=== PATIENT | female | born 1965 | race Caucasian/White ===

== ENCOUNTER → 2018-03-12 14:42 | Outpatient (CLI) | payer OTHER, MEDICAID, SELFPAY ==
--- NOTE | 2018-03-12 14:48 | DI.MG.S_ITS ---
Patient Name: BOBBI MARTINI date: 1965 Sex: F Attending Physician: Elba Indications: Date: 03/12/2018 14:48 At the request of: KAREN FRANCO Procedure: MM screening mammo BI BILATERAL DIGITAL SCREENING MAMMOGRAM 3D/2D WITH CAD: 03/12/2018 CLINICAL: Routine screening. Family history of breast cancer. Comparison is made to exams dated: 03/06/2017 mammogram, 01/26/2016 mammogram, and 01/23/2015 mammogram - [facility]. There are scattered fibroglandular elements in both breasts. Current study was also evaluated with a Computer Aided Detection (CAD) system. No significant masses, calcifications, or other findings are seen in either breast. IMPRESSION: NEGATIVE There is no mammographic evidence of malignancy. A 1 year screening mammogram is recommended. This exam was interpreted at Station ID: [id number]. NOTE: For mammograms, a report in lay terms will be sent to the patient. Approximately 15% of breast malignancies will not be visualized mammographically. In the management of a palpable breast mass, a negative mammogram must not discourage biopsy of a clinically suspicious lesion. Electronically Signed By: Abdias waldrop/asim:03/12/2018 20:29:58 letter sent: Normal Exam ACR BI-RADS Category 1: Negative [id number]
== END ==
PROVIDERS: Family Provider Family Medicine; PCP Family Medicine; Visit Provider Family Medicine
DX: Z12.31 Encounter for screening mammogram for malignant neoplasm of breast (principal); Z80.3 Family history of malignant neoplasm of breast
CPT/HCPCS: 77063; 77067

== ENCOUNTER → 2018-04-09 09:15 | Outpatient (CLI) | payer OTHER, MEDICAID, SELFPAY ==
--- NOTE | 2018-04-09 09:17 | DI.RAD.S_ITS ---
PROCEDURE: XR CHEST 2V INDICATIONS: Chest pain, unspecified TECHNIQUE: 2 views of the chest were acquired. COMPARISON: [facility], CHEST 2 VIEW, 10/13/2006, 9:03. [facility], CHEST 1 VIEW, 01/31/2017, 23:37. FINDINGS: Surgical changes and devices: None. Lungs and pleura: No pleural effusions or pneumothorax. Lungs are clear. Mediastinum: Mediastinal contours are normal. Heart size is normal. Bones and chest wall: No suspicious bony abnormalities. Soft tissues appear unremarkable. IMPRESSION: No acute cardiopulmonary abnormality. Dictated by: Jose F Miller M.D. on 04/09/2018 at 9:41 Approved by: Jose F Miller M.D. on 04/09/2018 at 9:44
== END ==
PROVIDERS: Family Provider Family Medicine; PCP Family Medicine; Visit Provider Registered Nurse
DX: R07.9 Chest pain, unspecified (principal)
CPT/HCPCS: 71046

== ENCOUNTER → 2018-09-03 08:59 | Outpatient (CLI) | payer OTHER, MEDICAID, SELFPAY | PROVIDERS: Family Provider Family Medicine; PCP Family Medicine; Visit Provider Family Medicine | DX: E03.9 Hypothyroidism, unspecified (principal) | CPT/HCPCS: 36415; 84443 ==

== ENCOUNTER → 2018-11-28 16:06 | Outpatient (CLI) | payer OTHER, MEDICAID, SELFPAY ==
[2018-11-28 18:03] LABS: Thyroid Stimulating Hormone 3.26 uIU/mL (0.47-4.68)
== END ==
PROVIDERS: Family Provider Family Medicine; PCP Family Medicine; Visit Provider Family Medicine
DX: E03.9 Hypothyroidism, unspecified (principal)
CPT/HCPCS: 36415; 84443

== ENCOUNTER → 2019-02-25 14:23 | Outpatient (CLI) | payer OTHER, MEDICAID, SELFPAY ==
[2019-02-25 15:51] LABS: Thyroid Stimulating Hormone 2.57 uIU/mL (0.47-4.68)
== END ==
PROVIDERS: PCP Family Medicine; Visit Provider Family Medicine
DX: E03.9 Hypothyroidism, unspecified (principal)
CPT/HCPCS: 36415; 84443

== ENCOUNTER → 2019-03-18 07:43 | Outpatient (CLI) | payer OTHER, MEDICAID, SELFPAY ==
--- NOTE | 2019-03-18 | DI.MG.S_ITS ---
BILATERAL DIGITAL SCREENING MAMMOGRAM 3D/2D WITH CAD: 03/18/2019 CLINICAL: Routine screening. Family history of breast cancer. Comparison is made to exams dated: 03/12/2018 mammogram, 03/06/2017 mammogram, and 01/26/2016 mammogram - [facility]. There are scattered fibroglandular elements in both breasts. Current study was also evaluated with a Computer Aided Detection (CAD) system. No significant masses, calcifications, or other findings are seen in either breast. There has been no significant interval change. IMPRESSION: NEGATIVE There is no mammographic evidence of malignancy. A 1 year screening mammogram is recommended. This exam was interpreted at Station ID: [id number]. NOTE: For mammograms, a report in lay terms will be sent to the patient. Approximately 15% of breast malignancies will not be visualized mammographically. In the management of a palpable breast mass, a negative mammogram must not discourage biopsy of a clinically suspicious lesion. Electronically Signed By: Alicia souza/asim:03/18/2019 08:45:51 letter sent: Normal Exam ACR BI-RADS Category 1: Negative [id number]
== END ==
PROVIDERS: PCP Family Medicine; Visit Provider Family Medicine
DX: Z12.31 Encounter for screening mammogram for malignant neoplasm of breast (principal); Z80.3 Family history of malignant neoplasm of breast
CPT/HCPCS: 77063; 77067

== ENCOUNTER 2019-04-07 02:52 | Emergency (ER) | payer OTHER, MEDICAID, SELFPAY ==
--- NOTE | 2019-04-07 02:53 | ED_ITS ---
HPI - General Adult General Chief complaint: Chest Pain Stated complaint: CHEST PAINS X1 HOUR Time Seen by Provider: 04/07/19 02:53 Source: patient Mode of arrival: ambulatory Limitations: no limitations History of Present Illness HPI narrative: 54-year-old female here for evaluation of chest pain. She states that the symptoms awoke her from sleep. It occurred approximately 1 hour prior to arrival here in the emergency department however did improve somewhat when she arrived here. Was associated with a small amount of shortness of breath. She states that it was worse when she laid down and better when she was up walking around. Has had some this similar to this in the past but has never been evaluated for it. Took some Tylenol before she arrived without any improvement. Not worse with palpation. Related Data Home Medications Medication Instructions Recorded Confirmed ibuprofen 400 mg PO Q4HP #0 05/15/12 03/11/19 Previous Rx's Medication Instructions Recorded albuterol sulfate HFA 90 1 puff INHALATION BID #6.7 gram 11/06/18 mcg/actuation aerosol inhaler fluticasone propionate 50 2 spray NASAL DAILY #9.9 gram 12/10/18 mcg/actuation nasal spray,suspension levothyroxine 175 mcg tablet 175 mcg PO QAM #30 tab 02/26/19 buspirone 5 mg tablet 7.5 mg PO BID #90 tab 03/12/19 Allergies Allergy/AdvReac Type Severity Reaction Status Date / Time No Known Drug Allergies Allergy Verified 03/11/19 11:40 Review of Systems Constitutional Denies fever(s) and Denies headache(s) ENT Ears, Nose, Mouth, and Throat: Denies headache(s) Cardiovascular Reports chest pain and Reports dyspnea Respiratory Denies cough, Reports dyspnea and Denies wheezing Gastrointestinal Gastrointestinal: Denies abdominal pain, Denies change in stool character, Denies nausea and Denies vomiting Genitourinary Denies dysuria Musculoskeletal Denies myalgias and Denies arthralgias Integumentary/Breasts Denies new lesions and Denies rash Neurologic Denies behavioral changes and Denies headache(s) Psychiatric Denies behavioral changes Hematologic/Lymphatic Denies easy bleeding and Denies easy bruising Allergic/Immunologic Denies wheezing [facility] Medical History History of irregular menstrual cycles (Chronic ~2014) Social History marital status: Smoking Status: Current every day smoker alcohol intake: current (1-3 A WEEK ) substance use type: does not use Exam Initial Vital Signs Initial Vital Signs: Vital Signs Temperature 98.7 F 04/07/19 02:55 Pulse Rate 74 04/07/19 02:55 Respiratory Rate 18 04/07/19 02:55 Blood Pressure 143/87 H 04/07/19 02:55 Pulse Oximetry 98 04/07/19 02:55 Const General: cooperative, healthy appearing, comfortable, well developed, well groomed and No acute distress Orientation: alert, awake and oriented x3 HENMT Head: normal to inspection and normocephalic Eyes Periorbital: periorbital findings normal Resp Effort & Inspection: normal respiratory effort Auscultation: clear to auscultation bilaterally Cardio Rate: regular rate Rhythm: regular rhythm GI Inspection: non-distended Palpation: soft, No firm and No tender Skin Lesions: no lesions Rashes: no rashes Neuro General: alert and awake Cognition: normal cognition Speech: speech normal Gait: normal gait Extrem General: normal to inspection, capillary refill normal and No edema Psych Appearance: grossly normal and well kempt Scores HEART Score Heart Score history: Slightly Suspicious Heart Score EKG: Normal Heart Score Age: 45-64 years old Heart Score risk factors: 1-2 risk factors Heart Score troponin: < or = to normal limit Heart Score Total: 2 Course Orders Ordered: ED Orders 04/07/19 02:54 XR chest 1V Stat EKG-12 Lead Stat 04/07/19 03:06 B Type Natriuretic Peptide Stat Complete Blood Count AUTO DIFF Stat Comprehensive Metabolic Panel Stat Lipase Stat Partial Thromboplastin Time Stat Prothrombin Time INR Stat Troponin I Stat 04/07/19 04:57 Troponin I Stat Discontinued Medications Aspirin (Aspirin Chew) 324 mg PO NOW ONE Stop: 04/07/19 03:12 Last Admin: 04/07/19 03:16 Dose: 324 mg Vital Signs - 8 hr 04/07/19 02:55 04/07/19 03:05 04/07/19 03:24 Temperature 98.7 F 98.7 F 98.4 F Pulse Rate 74 74 74 Respiratory Rate 18 18 16 Blood Pressure 143/87 H 143/87 H Blood Pressure [Right Arm] 122/67 Pulse Oximetry 98 98 100 04/07/19 04:30 Temperature Pulse Rate 65 Respiratory Rate 16 Blood Pressure Blood Pressure [Right Arm] 131/88 Pulse Oximetry 97 Medical Decision Making Lab Data Lab results reviewed: Yes I reviewed the patient's lab results. Result diagrams: 04/07/19 03:06 04/07/19 03:06 Lab Results 04/07/19 04/07/19 04/07/19 Range/Units 03:06 03:06 03:06 WBC 10.3 (4.5-11.0) X10^3/uL RBC 4.74 (4.0-5.2) X10^6/uL Hgb 15.0 (12.0-16.0) g/dL Hct 43.6 (36-46) % MCV 91.9 (80-100) fL MCH 31.6 (26-34) PG MCHC 34.4 (30-36) % RDW 13.6 (11.6-14.8) % Plt Count 280 (150-400) X10^3/uL Neut % (Auto) 56.0 (50-75) % Lymph % (Auto) 31.4 (25-40) % [place] % (Auto) 9.1 (3-14) % Eos % (Auto) 2.5 (2-4) % Baso % (Auto) 1.0 (0-2) % Neut # (Auto) 5800 (1886-5344) /uL Lymph # (Auto) 3200 (5324-8961) /uL [place] # (Auto) 900 (0-900) /uL Eos # (Auto) 300 (0-450) /uL Baso # (Auto) 100 (0-100) /uL PT 10.5 (10.1-12.7) SECONDS INR 0.9 (0.9-1.3) APTT 33 (26.4-36.2) SECONDS Sodium 142 (137-145) mmol/L Potassium 3.7 (3.4-5.1) mmol/L Chloride 108 H (98-107) mmol/L Carbon Dioxide 26 (22-32) mmol/L BUN 15 (7-17) mg/dL Creatinine 0.60 (0.52-1.04) mg/dL Estimated GFR > 60.0 (>60) mL/min BUN/Creatinine Ratio 25.0 H (6-22) Glucose 97 (70-100) mg/dL Calcium 9.3 (8.4-10.2) mg/dL Total Bilirubin 0.8 (0.2-1.3) mg/dL AST 20 (14-36) IU/L ALT 12 (9-52) IU/L Alkaline Phosphatase 45 (38-126) U/L Troponin I (0.01-0.034) ng/mL B-Natriuretic Peptide (<100) Total Protein 6.7 (6.3-8.2) g/dL Albumin 4.0 (3.5-5.0) g/dL Globulin 2.7 (1.7-4.1) g/dL Albumin/Globulin Ratio 1.5 (1.0-2.8) Lipase 202 (23-300) U/L 04/07/19 04/07/19 04/07/19 Range/Units 03:06 03:06 04:57 WBC (4.5-11.0) X10^3/uL RBC (4.0-5.2) X10^6/uL Hgb (12.0-16.0) g/dL Hct (36-46) % MCV (80-100) fL MCH (26-34) PG MCHC (30-36) % RDW (11.6-14.8) % Plt Count (150-400) X10^3/uL Neut % (Auto) (50-75) % Lymph % (Auto) (25-40) % [place] % (Auto) (3-14) % Eos % (Auto) (2-4) % Baso % (Auto) (0-2) % Neut # (Auto) (7843-8664) /uL Lymph # (Auto) (7814-7938) /uL [place] # (Auto) (0-900) /uL Eos # (Auto) (0-450) /uL Baso # (Auto) (0-100) /uL PT (10.1-12.7) SECONDS INR (0.9-1.3) APTT (26.4-36.2) SECONDS Sodium (137-145) mmol/L Potassium (3.4-5.1) mmol/L Chloride (98-107) mmol/L Carbon Dioxide (22-32) mmol/L BUN (7-17) mg/dL Creatinine (0.52-1.04) mg/dL Estimated GFR (>60) mL/min BUN/Creatinine Ratio (6-22) Glucose (70-100) mg/dL Calcium (8.4-10.2) mg/dL Total Bilirubin (0.2-1.3) mg/dL AST (14-36) IU/L ALT (9-52) IU/L Alkaline Phosphatase (38-126) U/L Troponin I < 0.012 < 0.012 (0.01-0.034) ng/mL B-Natriuretic Peptide < 100 (<100) Total Protein (6.3-8.2) g/dL Albumin (3.5-5.0) g/dL Globulin (1.7-4.1) g/dL Albumin/Globulin Ratio (1.0-2.8) Lipase (23-300) U/L Imaging Data Chest x-ray: Attestation: I personally reviewed and interpreted this imaging study as follows: My impression: No acute pathology, no pneumothorax, no pneumonia ECG Data Attestation: I personally reviewed and interpreted this ECG as follows: Prior ECG tracings: not available for review Interpretation: Sinus rhythm Ventricular rate is 72 Normal axis Normal QRS Normal QTC No ST T wave changes MDM Narrative Medical decision making narrative: Heart score 2. Has been asymptomatic since being here in the emergency department. Troponin is negative x2. Had a discussion with the patient regarding her symptoms. We did discuss the impor tance of talking with her primary doctor about stress testing. Given her heart score in her physical exam and her EKG do not feel that she needs admitted to the hospital to get this done emergently. She was given return precautions and follow-up instructions. She expressed understanding and agreement with plan. Discharge Plan Departure Patient Disposition: Home Clinical Impression: Chest pain Qualifiers: Chest pain type: unspecified Qualified Code(s): R07.9 - Chest pain, unspecified Instructions: DI for Chest Pain Activity Restrictions/Additional Instructions: I do recommend that tomorrow you contact your primary doctor's office to discuss a referral to have a stress test. Return to the emergency department for any new or worsening symptoms. Continue all of your medications as directed Prescriptions: No Action buspirone 5 mg tablet 7.5 mg PO BID Qty: 90 RF: 3 ibuprofen 200 MG tablet 400 mg PO Q4HP Qty: 0 RF: 0 levothyroxine 175 mcg tablet 175 mcg PO QAM Qty: 30 RF: 5 albuterol sulfate 90 mcg/actuation HFA aerosol inhaler 1 puff INHALATION BID Qty: 6.7 RF: 1 fluticasone propionate [Flonase Allergy Relief] 50 mcg/actuation spray,suspension 2 spray NASAL DAILY Qty: 9.9 RF: 0 Referrals: Thee Arreola MD [Primary Care Provider] -
--- NOTE | 2019-04-07 02:54 | DI.RAD.S_ITS ---
PROCEDURE: XR CHEST 1V INDICATIONS: Chest pain TECHNIQUE: One view of the chest was acquired. COMPARISON: [facility], CR, XR CHEST 2V, 04/09/2018, 9:02. FINDINGS: Surgical changes and devices: None. Lungs and pleura: Lungs are clear. No pleural effusions or pneumothorax. Mediastinum: Mediastinal contours appear normal. Heart size is normal. Bones and chest wall: No suspicious bony lesions. Overlying soft tissues appear unremarkable. IMPRESSION: Negative chest. No acute cardiopulmonary process is suspected. Note: The preliminary ED findings and the final radiology report are concordant. Dictated by: Amrit Castaneda M.D. on 04/07/2019 at 8:39 Approved by: Amrit Castaneda M.D. on 04/07/2019 at 8:40
[2019-04-07 02:55] VITALS: BP 143/87; PULSE 74; RESP 18; TEMP 37.1; O2SAT 98; BMI 20.7
[2019-04-07 03:05] VITALS: BP 143/87; PULSE 74; RESP 18; TEMP 37.1; O2SAT 98; BMI 20.7
[2019-04-07 03:12] LABS: Add Manual Diff / Slide Review NO; Basophils Absolute Auto 100 /uL (0-100); Eosinophils Absolute Auto 300 /uL (0-450); Eosinophils Percent Auto 2.5 % (2-4); Hematocrit 43.6 % (36-46); Lymphocytes Absolute Auto 3200 /uL (1100-4500); Lymphocytes Percent Auto 31.4 % (25-40); Mean Corpuscular HGB Conc 34.4 % (30-36); Mean Corpuscular Hemoglobin 31.6 PG (26-34); Mean Corpuscular Volume 91.9 fL (80-100); Monocytes Absolute Auto 900 /uL (0-900); Monocytes Percent Auto 9.1 % (3-14); Neutrophils Absolute Auto 5800 /uL (1500-7000); Platelet Count 280 X10^3/uL (150-400); Red Blood Cell Count 4.74 X10^6/uL (4.0-5.2); Red Cell Distribution Width 13.6 % (11.6-14.8); White Blood Cell Count 10.3 X10^3/uL (4.5-11.0)
[2019-04-07] MEDS: ASPIRIN 81 MG TAB 324 MG PO (03:16)
[2019-04-07 03:20] LABS: INR 0.9 (0.9-1.3); Prothrombin Time 10.5 SECONDS (10.1-12.7)
[2019-04-07 03:22] LABS: PTT Partial Thromboplastin Tim 33 SECONDS (26.4-36.2)
[2019-04-07 03:24] VITALS: BP 122/67; PULSE 74; RESP 16; TEMP 36.9; O2SAT 100
[2019-04-07 03:24] LABS: Alanine Aminotransferase 12 IU/L (9-52); Albumin Globulin Ratio 1.5 (1.0-2.8); Alkaline Phosphatase 45 U/L (38-126); Aspartate Aminotransferase 20 IU/L (14-36); Bilirubin Total 0.8 mg/dL (0.2-1.3); Blood Urea Nitrogen 15 mg/dL (7-17); Calcium 9.3 mg/dL (8.4-10.2); Carbon Dioxide 26 mmol/L (22-32); Chloride 108 mmol/L (98-107); Estimated Glomerular Filt Rate > 60.0 mL/min (>60); Globulin 2.7 g/dL (1.7-4.1); Glucose 97 mg/dL (70-100); HEMOLYSIS < 15 (0-50); Lipase 202 U/L (23-300); Potassium 3.7 mmol/L (3.4-5.1); Sodium 142 mmol/L (137-145); Total Protein 6.7 g/dL (6.3-8.2)
[2019-04-07 03:36] LABS: Troponin I < 0.012 ng/mL (0.01-0.034)
[2019-04-07 03:38] LABS: B Type Natriuretic Peptide < 100 (<100)
[2019-04-07 04:30] VITALS: BP 131/88; PULSE 65; RESP 16; O2SAT 97
[2019-04-07 05:26] LABS: Troponin I < 0.012 ng/mL (0.01-0.034)
[2019-04-07 06:12] VITALS: BP 127/79; PULSE 76; RESP 16; O2SAT 98
== END 2019-04-07 06:13 | disposition home or self-care (01) ==
PROVIDERS: Emergency Provider Emergency Medicine; PCP Family Medicine
DX: R07.9 Chest pain, unspecified (principal)
CPT/HCPCS: 36591; 71045; 80053; 83690; 83880; 84484; 85025; 85610; 85730; 93005; 93010; 99283; 99285

== ENCOUNTER 2019-07-04 21:29 | Emergency (ER) | payer OTHER, MEDICAID, SELFPAY ==
[2019-07-04 21:35] VITALS: BP 122/72; PULSE 69; RESP 23; TEMP 37.1; O2SAT 97; BMI 19.9
--- NOTE | 2019-07-04 21:38 | DI.RAD.S_ITS ---
PROCEDURE: XR CHEST 1V INDICATIONS: chest pain, cough TECHNIQUE: One view of the chest was acquired. COMPARISON: [facility], CR, XR CHEST 1V, 04/07/2019, 3:08. FINDINGS: Surgical changes and devices: None. Lungs and pleura: Patchy opacity noted in left lung base concerning for aspiration versus pneumonia. No pleural effusions or pneumothorax. Mediastinum: Mediastinal contours appear normal. Heart size is normal. Bones and chest wall: No suspicious bony lesions. Overlying soft tissues appear unremarkable. IMPRESSION: Left basilar aspiration versus pneumonia. Dictated by: Nelly Suero MD, PhD on 07/04/2019 at 22:01 Approved by: Nelly Suero MD, PhD on 07/04/2019 at 22:02
--- NOTE | 2019-07-04 21:38 | ED.CHESTPAIN ---
HPI - Chest Pain General Chief Complaint: Chest Pain Stated Complaint: CHEST PAINS Time Seen by Provider: 07/04/19 21:31 Source: patient Mode of arrival: Ambulatory Limitations: no limitations History of Present Illness HPI narrative: 53-year-old female former smoker presents by herself with a chief complaint of anterior chest pain for the past few hours. She has been treated for the past 5 days with antibiotics for a presumed pneumonia by her primary care provider. Her pain is worse when she lays flat and seems to worsen with cough. She denies any production to her sputum. She states her pain is sharp and stabbing. She denies any radiation of the pain. She denies associated symptoms such as dizziness, weakness or lightheadedness. She has had no nausea or vomiting. She denies any diaphoresis. She denies any blood in her sputum. She has had no recent long distance travel. MD complaint: chest pain Onset (ago): hour(s) Duration: improved Onset: other Pain location: substernal Severity: moderate Quality: sharp Pain radiation: none Relieving factors: nothing Exacerbating factors: inspiration and palpation Context: recent illness Related Data On Oral Contraceptives: No Previous Rx's Medication Instructions Recorded albuterol sulfate 90 mcg/actuation 1 puff INHALATION BID #6.7 gram 11/06/18 aerosol inhaler fluticasone propionate 50 2 spray NASAL DAILY #9.9 gram 12/10/18 mcg/actuation nasal spray,suspension levothyroxine 175 mcg tablet 175 mcg PO QAM #30 tab 02/26/19 sertraline 25 mg tablet 25 mg PO DAILY #30 tab 04/30/19 doxycycline hyclate 100 mg capsule 100 mg PO BID #20 cap 07/01/19 Allergies Allergy/AdvReac Type Severity Reaction Status Date / Time No Known Drug Allergies Allergy Verified 07/01/19 08:51 Review of Systems Constitutional Constitutional: Denies chills, Denies fatigue, Denies fever(s), Denies frequent falls, Denies lethargy and Denies weakness Eyes Eyes: Denies change in vision, Denies eye discharge, Denies irritation and Denies loss of vision ENT Ears, Nose, Mouth, and Throat: Denies change in voice, Denies dizziness, Denies neck pain, Denies sore throat and Denies throat swelling Cardiovascular Cardiovascular: Reports chest pain, Denies irregular heart rhythm, Denies lightheadedness, Denies palpitations, Denies dyspnea, Denies dyspnea on exertion and Denies orthopnea Respiratory Respiratory: Reports cough, Denies dyspnea, Denies dyspnea on exertion and Denies wheezing Gastrointestinal Gastrointestinal: Denies abdominal pain, Denies change in bowel habits, Denies diarrhea, Denies nausea and Denies vomiting Genitourinary Genitourinary: Denies hematuria, Denies flank pain, Denies urinary incontinence and Denies urinary urgency Musculoskeletal Musculoskeletal: Denies back pain, Denies muscle weakness, Denies neck pain, Denies numbness and Denies tingling Integumentary/Breasts Skin/Breast: Denies pruritus, Denies erythema, Denies rash and Denies wounds Neurologic Neurologic: Denies behavioral changes, Denies confusion, Denies dizziness, Denies frequent falls, Denies loss of vision, Denies numbness, Denies tingling and Denies weakness Psychiatric Psychiatric: Denies anxiety, Denies behavioral changes, Denies confusion, Denies depression, Denies homicidal ideation and Denies suicidal ideation Endocrine Endocrine: Denies fatigue, Denies flushing and Denies palpitations Hematologic/Lymphatic Hematologic/Lymphatic: Denies easy bruising Allergic/Immunologic Allergic/Immunologic: Denies urticaria, Denies throat swelling and Denies wheezing Patient History Medical History Anxiety (Acute) Anxiety (Acute) Atypical chest pain (Inactive) Chest pain (Inactive) Cystocele with uterine descensus (02/06/15) History of irregular menstrual cycles (Chronic ~2013) Inguinal hernia (Acute) Polyp of cervix (02/06/15) Surgical History Status post tubal ligation (12/24/03) Family History Mother Cancer Sister Age: 53 Breast cancer Social History marital status: Smoking Status: Current every day smoker alcohol intake: current (1-3 A WEEK ) substance use type: does not use alcohol intake frequency: 0-2 drinks per day Substance Use Type: does not use Exam Narrative Exam Narrative: GENERAL: [53] year old patient appears stated age. Well-nourished, well-developed patient, in mild distress. HEAD: Atraumatic. Normocephalic. EYES: Pupils equal round and reactive. Extraocular motions intact. No scleral icterus. No injection or drainage. ENT: Nose without bleeding, purulent drainage. Throat without erythema, tonsillar hypertrophy or exudate. Airway patent. NECK: Trachea midline. Non tender CARDIOVASCULAR: Regular rate and rhythm without murmurs, gallops, or rubs. RESPIRATORY: Clear to auscultation. Breath sounds equal bilaterally. No wheezes, rales, or rhonchi. GASTROINTESTINAL: Abdomen soft, tender epigastrum, nondistended. EXTREMITIES: No edema or joint tenderness. BACK: Nontender without deformity or crepitance. No flank tenderness. NEURO: AOx3. SKIN: No rash or erythema of visible areas Initial Vital Signs Initial Vital Signs: Vital Signs Temperature 98.7 F 07/04/19 21:35 Pulse Rate 69 07/04/19 21:35 Respiratory Rate 23 07/04/19 21:35 Blood Pressure 122/72 07/04/19 21:35 Pulse Oximetry 97 07/04/19 21:35 Scores HEART Score Heart Score history: Slightly Suspicious Heart Score EKG: Normal Heart Score Age: 45-64 years old Heart Score risk factors: 1-2 risk factors Heart Score troponin: < or = to normal limit Heart Score Total: 2 Course Orders Ordered: ED Orders 07/04/19 21:38 XR chest 1V Stat 07/04/19 21:39 Complete Blood Count AUTO DIFF Stat Comprehensive Metabolic Panel Stat D Dimer Stat Lipase Stat Troponin & CK Cardiac Panel Stat 07/04/19 21:41 EKG-12 Lead Stat 07/04/19 22:07 US abdomen limited Stat 07/04/19 23:43 Troponin I Stat Sodium Chloride (Normal Saline 0.9%) 1,000 mls @ 150 mls/hr IV CONT JESS Last Infusion: 07/05/19 00:23 Dose: 0 mls/hr Documented by: Admin: 07/04/19 21:59 Dose: 150 mls/hr Documented by: ASHLEY Discontinued Medications Aspirin (Aspirin Chew) 324 mg PO NOW ONE Stop: 07/04/19 21:39 Last Admin: 07/04/19 21:59 Dose: 324 mg Documented by: ASHLEY Vital Signs Vital signs: Vital Signs - 8 hr 11/07/19 21:35 07/04/19 22:00 07/04/19 23:00 Temperature 98.7 F Pulse Rate 69 71 58 L Respiratory Rate 23 22 24 Blood Pressure 122/72 Blood Pressure [Left Arm] 102/63 102/60 Pulse Oximetry 97 95 94 07/05/19 00:21 Temperature Pulse Rate 69 Respiratory Rate 15 Blood Pressure Blood Pressure [Left Arm] 101/65 Pulse Oximetry 97 MDM - Chest Pain Lab Data Result diagrams: 07/04/19 21:39 07/04/19 21:39 Labs: Lab Results 07/04/19 07/04/19 07/04/19 Range/Units 21:39 21:39 21:39 WBC 14.2 H (4.5-11.0) X10^3/uL RBC 4.10 (4.0-5.2) X10^6/uL Hgb 12.5 (12.0-16.0) g/dL Hct 36.8 (36-46) % MCV 89.8 (80-100) fL MCH 30.6 (26-34) PG MCHC 34.1 (30-36) % RDW 13.0 (11.6-14.8) % Plt Count 389 (150-400) X10^3/uL Neut % (Auto) 71.4 (50-75) % Lymph % (Auto) 14.2 L (25-40) % [place] % (Auto) 12.6 (3-14) % Eos % (Auto) 1.1 L (2-4) % Baso % (Auto) 0.7 (0-2) % Neut # (Auto) 01103 H (5903-3187) /uL Lymph # (Auto) 2000 (2414-5934) /uL [place] # (Auto) 1800 H (0-900) /uL Eos # (Auto) 200 (0-450) /uL Baso # (Auto) 100 (0-100) /uL D-Dimer 461 H (<230) ng/mL Sodium 137 (137-145) mmol/L Potassium 3.5 (3.4-5.1) mmol/L Chloride 101 (98-107) mmol/L Carbon Dioxide 30 (22-32) mmol/L BUN 15 (7-17) mg/dL Creatinine 0.50 L (0.52-1.04) mg/dL Estimated GFR > 60.0 (>60) mL/min BUN/Creatinine Ratio 30.0 H (6-22) Glucose 125 H (70-100) mg/dL Calcium 9.1 (8.4-10.2) mg/dL Total Bilirubin 0.7 (0.2-1.3) mg/dL AST 100 H (14-36) IU/L ALT 77 H (<35) IU/L Alkaline Phosphatase 79 (38-126) U/L Total Creatine Kinase 127 (30-135) U/L CK-MB (CK-2) 0.70 (<2.37) ng/mL CK-MB (CK-2) Rel Index 0.6 L (1.5-5.0) % Troponin I < 0.012 (0.01-0.034) ng/mL Total Protein 6.9 (6.3-8.2) g/dL Albumin 3.7 (3.5-5.0) g/dL Globulin 3.2 (1.7-4.1) g/dL Albumin/Globulin Ratio 1.2 (1.0-2.8) Lipase 69 (23-300) U/L 07/04/19 Range/Units 23:43 WBC (4.5-11.0) X10^3/uL RBC (4.0-5.2) X10^6/uL Hgb (12.0-16.0) g/dL Hct (36-46) % MCV (80-100) fL MCH (26-34) PG MCHC (30-36) % RDW (11.6-14.8) % Plt Count (150-400) X10^3/uL Neut % (Auto) (50-75) % Lymph % (Auto) (25-40) % [place] % (Auto) (3-14) % Eos % (Auto) (2-4) % Baso % (Auto) (0-2) % Neut # (Auto) (2964-5133) /uL Lymph # (Auto) (0001-6466) /uL [place] # (Auto) (0-900) /uL Eos # (Auto) (0-450) /uL Baso # (Auto) (0-100) /uL D-Dimer (<230) ng/mL Sodium (137-145) mmol/L Potassium (3.4-5.1) mmol/L Chloride (98-107) mmol/L Carbon Dioxide (22-32) mmol/L BUN (7-17) mg/dL Creatinine (0.52-1.04) mg/dL Estimated GFR (>60) mL/min BUN/Creatinine Ratio (6-22) Glucose (70-100) mg/dL Calcium (8.4-10.2) mg/dL Total Bilirubin (0.2-1.3) mg/dL AST (14-36) IU/L ALT (<35) IU/L Alkaline Phosphatase (38-126) U/L Total Creatine Kinase (30-135) U/L CK-MB (CK-2) (<2.37) ng/mL CK-MB (CK-2) Rel Index (1.5-5.0) % Troponin I < 0.012 (0.01-0.034) ng/mL Total Protein (6.3-8.2) g/dL Albumin (3.5-5.0) g/dL Globulin (1.7-4.1) g/dL Albumin/Globulin Ratio (1.0-2.8) Lipase (23-300) U/L Urine Dip Bedside Urine Glucose Negative Bedside Urine Bilirubin - Negative Bedside Urine Ketone - Negative Urine Specific Blanket 1.010 Bedside Urine Occult Blood +/- Bedside Urine Protein - Negative Bedside Urine Urobilinogen - Negative Bedside Urine Nitrite - Negative Bedside Urine Leukocytes - Negative Esterase MDM Narrative Medical decision making narrative: Multiple causes of chest pain considered including MO, PE, pneumothorax, pneumonia, aortic dissection, and pleurisy. Patient reports no radiation, no diaphoresis, no provocation with exertion, and no vomiting. Patient had a recent reassuring stress test, nonischemic EKG and 2 troponins were negative. Heart score is low. Pulmonary embolism considered, D-dimer ordered and when age corrected is considered normal. No CT angiogram indicated. Epigastric pain concerning for reflux, gallbladder disease, pancreatitis versus other. The labs and ultrasound make this less likely. Patient's symptoms improved or duration of stay with above-stated therapies. Findings and discharge diagnosis discussed with patient/family followed by verbalization of understanding Return precautions discussed with patient/family whom verbalize understanding. Discharge Plan Departure Patient Disposition: Home Clinical Impression: Acute epigastric pain Pneumonia Qualifiers: Pneumonia type: due to unspecified organism Laterality: left Lung location: lower lobe of lung Qualified Code(s): J18.9 - Pneumonia, unspecified organism Instructions: DI for Atypical Chest Pain Activity Restrictions/Additional Instructions: *You have been diagnosed with [atypical chest pain, left lower lobe pneumonia, epigastric pain] *What to do: * continue to take medications as directed: Consider getting some [id number] Mylanta or Pepto-Bismol. Avoid caffeine, nicotine and alcohol. *Follow up with your primary care provider in 2-3 days, call for an appointment. Let them know you were seen in the Emergency Department and that we ask that you be seen in follow up *Return to ER if you should have any new, worsening or concerning symptoms such as dizziness, shortness of breath, nausea and vomiting, unexplained sweating or other bothersome symptoms Prescriptions: No Action sertraline 25 mg tablet 25 mg PO DAILY Qty: 30 RF: 3 doxycycline hyclate 100 mg capsule 100 mg PO BID Qty: 20 RF: 0 levothyroxine 175 mcg tablet 175 mcg PO QAM Qty: 30 RF: 5 albuterol sulfate 90 mcg/actuation HFA aerosol inhaler 1 puff INHALATION BID Qty: 6.7 RF: 1 fluticasone propionate [Flonase Allergy Relief] 50 mcg/actuation spray,suspension 2 spray NASAL DAILY Qty: 9.9 RF: 0 Referrals: Thee Arreola MD [Primary Care Provider] -
[2019-07-04 21:49] LABS: Add Manual Diff / Slide Review NO; Basophils Absolute Auto 100 /uL (0-100); Basophils Percent Auto 0.7 % (0-2); Eosinophils Absolute Auto 200 /uL (0-450); Eosinophils Percent Auto 1.1 % (2-4); Hematocrit 36.8 % (36-46); Hemoglobin 12.5 g/dL (12.0-16.0); Lymphocytes Absolute Auto 2000 /uL (1100-4500); Lymphocytes Percent Auto 14.2 % (25-40); Mean Corpuscular HGB Conc 34.1 % (30-36); Mean Corpuscular Hemoglobin 30.6 PG (26-34); Mean Corpuscular Volume 89.8 fL (80-100); Monocytes Absolute Auto 1800 /uL (0-900); Monocytes Percent Auto 12.6 % (3-14); Neutrophils Absolute Auto 10200 /uL (1500-7000); Neutrophils Percent Auto 71.4 % (50-75); Platelet Count 389 X10^3/uL (150-400); White Blood Cell Count 14.2 X10^3/uL (4.5-11.0)
[2019-07-04] MEDS: ASPIRIN 81 MG CHEW TAB 324 MG PO (21:59)
[2019-07-04] MEDS: SODIUM CHLORIDE 0.9% 1,000 ML 150 ML IV (21:59)
[2019-07-04 22:00] VITALS: BP 102/63; PULSE 71; RESP 22; O2SAT 95
[2019-07-04 22:00] LABS: Alanine Aminotransferase 77 IU/L (<35); Albumin 3.7 g/dL (3.5-5.0); Albumin Globulin Ratio 1.2 (1.0-2.8); Alkaline Phosphatase 79 U/L (38-126); Aspartate Aminotransferase 100 IU/L (14-36); Bilirubin Total 0.7 mg/dL (0.2-1.3); Blood Urea Nitrogen 15 mg/dL (7-17); Calcium 9.1 mg/dL (8.4-10.2); Carbon Dioxide 30 mmol/L (22-32); Chloride 101 mmol/L (98-107); Creatine Kinase 127 U/L (30-135); D Dimer 461 ng/mL (<230); Estimated Glomerular Filt Rate > 60.0 mL/min (>60); Globulin 3.2 g/dL (1.7-4.1); Glucose 125 mg/dL (70-100); HEMOLYSIS < 15 (0-50); Lipase 69 U/L (23-300); Potassium 3.5 mmol/L (3.4-5.1); Sodium 137 mmol/L (137-145); Total Protein 6.9 g/dL (6.3-8.2)
--- NOTE | 2019-07-04 22:07 | DI.US.S_ITS ---
PROCEDURE: US ABDOMEN LIMITED INDICATIONS: SEVERE EPIGASTRIC PAIN TECHNIQUE: Real-time scanning was performed of the abdominal and retroperitoneal organs, with image documentation. COMPARISON: None. FINDINGS: Liver: Liver is normal in size. Multiple hepatic cysts are seen including a septated cyst measures 1.6 x 1.7 x 1.7 cm in size in anterior medial portion of liver. Gallbladder: There is no gallstone. No gallbladder wall thickening or pericholecystic fluid. No sonographic Nicholas's sign. Biliary ducts: Intrahepatic bile ducts are non-dilated. Extrahepatic bile duct caliber measures 5 mm. Normal is 6-7 mm or less in diameter, or 10 mm or less post-cholecystectomy. Pancreas: Visualized portions of the pancreas are sonographically normal. IMPRESSION: Multiple hepatic cysts as above. No gross solid appearing hepatic lesion. Normal appearing gallbladder. No biliary ductal dilatation. No abdominal free fluid. Dictated by: Duke Galaviz M.D. on 07/05/2019 at 8:48 Approved by: Duke Galaviz M.D. on 07/05/2019 at 8:51
[2019-07-04 22:12] LABS: Troponin I < 0.012 ng/mL (0.01-0.034)
[2019-07-04 22:15] LABS: CKMB % Relative Index 0.6 % (1.5-5.0)
[2019-07-04 23:00] VITALS: BP 102/60; PULSE 58; RESP 24; O2SAT 94
[2019-07-05 00:12] LABS: Troponin I < 0.012 ng/mL (0.01-0.034)
[2019-07-05 00:21] VITALS: BP 101/65; PULSE 69; RESP 15; O2SAT 97
== END 2019-07-05 00:31 | disposition home or self-care (01) ==
PROVIDERS: Emergency Provider Emergency Medicine; Family Provider Family Medicine; PCP Family Medicine
DX: R10.13 Epigastric pain (principal); J18.9 Pneumonia, unspecified organism; R07.89 Other chest pain; R79.89 Other specified abnormal findings of blood chemistry
CPT/HCPCS: 36415; 71045; 76705; 80053; 81003; 82550; 82553; 83690; 84484; 85025; 85379; 93005; 93010; 96360; 96361; 99283; 99285

== ENCOUNTER → 2020-04-10 08:06 | Outpatient (CLI) | payer OTHER, MEDICAID, SELFPAY ==
--- NOTE | 2020-04-10 | DI.MG.S_ITS ---
BILATERAL DIGITAL SCREENING MAMMOGRAM 3D/2D WITH CAD: 04/10/2020 CLINICAL: Routine screening. Family history of breast cancer. Comparison is made to exams dated: 03/18/2019 mammogram, 03/12/2018 mammogram, 03/06/2017 mammogram, 01/26/2016 mammogram, and 01/23/2015 mammogram - [facility]. There are scattered fibroglandular elements in both breasts. Current study was also evaluated with a Computer Aided Detection (CAD) system. No significant masses, calcifications, or other findings are seen in either breast. There has been no significant interval change. IMPRESSION: NEGATIVE There is no mammographic evidence of malignancy. A 1 year screening mammogram is recommended. This exam was interpreted at Station ID: [id number]. NOTE: For mammograms, a report in lay terms will be sent to the patient. Approximately 15% of breast malignancies will not be visualized mammographically. In the management of a palpable breast mass, a negative mammogram must not discourage biopsy of a clinically suspicious lesion. Electronically Signed By: Paco high/asim:04/10/2020 08:46:35 letter sent: Normal Exam ACR BI-RADS Category 1: Negative 3341F
== END ==
PROVIDERS: Family Provider Family Medicine; PCP Family Medicine; Referring Provider Family Medicine; Visit Provider Family Medicine
DX: Z12.31 Encounter for screening mammogram for malignant neoplasm of breast (principal); Z80.3 Family history of malignant neoplasm of breast
CPT/HCPCS: 77063; 77067

== ENCOUNTER → 2020-05-21 15:20 | Outpatient (CLI) | payer OTHER, MEDICAID, SELFPAY ==
[2020-05-22 08:50] LABS: COVID19 Sendout Not Detected (Not Detect)
== END ==
PROVIDERS: Family Provider Family Medicine; PCP Family Medicine; Visit Provider Physician Assistant
DX: Z11.59 Encounter for screening for other viral diseases (principal)
CPT/HCPCS: 87635

== ENCOUNTER → 2020-10-23 12:45 | Outpatient (CLI) | payer OTHER, MEDICAID, SELFPAY ==
[2020-10-23 15:08] LABS: TSH w/ Reflex to FT4 2.53 uIU/mL (0.47-4.68)
== END ==
PROVIDERS: Family Provider Family Medicine; PCP Family Medicine; Referring Provider Family Medicine; Visit Provider Family Medicine
DX: E03.9 Hypothyroidism, unspecified (principal)
CPT/HCPCS: 36415; 84443

== ENCOUNTER → 2020-10-30 09:44 | Outpatient (CLI) | payer OTHER, MEDICAID, SELFPAY ==
[2020-10-30 10:49] LABS: COVID19 -Nasal RAPID Negative (Negative)
== END ==
PROVIDERS: PCP Family Medicine; Visit Provider Surgery
DX: Z20.822 Contact with and (suspected) exposure to COVID-19 (principal)
CPT/HCPCS: 87635; C9803

== ENCOUNTER 2020-11-02 08:48 | Day surgery (SDC) | payer OTHER, MEDICAID, SELFPAY ==
[2020-11-02] VITALS (8 sets, daily range): BP systolic 116–132; BP diastolic 68–85; PULSE 55–83; RESP 15–19; TEMP 35.9–36.8; O2SAT 95–99; BMI 24.3
--- NOTE | 2020-11-02 | PATH_ITS ---
[facility] Accession Number: [id number] . 01 Material submitted: . colon - DESCENDING COLON POLYP . 01 Clinical history: . SDC . 02 Diagnosis: Descending Colon, Polyp, Biopsy: Benign lymphoid aggregate. [facility] 11/05/2020 1526 Local . 02 Electronically signed: . Amy Bishop MD, Pathologist NPI- [id number] . 01 Gross description: . DESCENDING COLON POLYP: Received in formalin are 4 fragment(s) of faustin, soft tissue measuring 0.3 x 0.3 x 0.2 cm to 0.2 x 0.2 x 0.1 cm submitted entirely in 1 cassette(s) /QBJ 11/04/2020 0708 Local . 02 Pathologist provided ICD-10: K63.5 . 02 CPT . 174345 Performed at: 01 [facility] [address], [place], [place] [id number] MD Edilberto Samuel MD Phone: [phone] Performed at: 02 [facility] [address] [place], [place] [id number] MD Amy Bishop MD Phone: [phone]
[2020-11-02] MEDS: LACTATED RINGERS 1,000 ML 200 ML IV (09:30)
--- NOTE | 2020-11-02 09:32 | PM.PREOP ---
Pre-operative Note Interval Note History & Physical reviewed/Exam performed by Physician: Yes Changes to H&P: No
[2020-11-02] MEDS: MIDAZOLAM 5 MG/5 ML VIAL IV (09:46)
[2020-11-02] MEDS: fentaNYL 250 MCG/5 ML INJ IV (09:46)
--- NOTE | 2020-11-02 10:13 | PM.OP.ENDO ---
Operative Date/Time/Diagnoses Date of procedure: 11/02/20 Time of procedure: 10:14 Pre-op diagnosis: Blood per rectum Post-op diagnosis: same Procedure & Clinicians Study performed: Colonoscopy Polypectomy Same procedure as scheduled: Yes Indications: 54-year-old female no prior colonoscopy history intermittent bright red blood per rectum presents for elective colonoscopy Surgeon: Willis Matos Procedure Notes Procedure in detail: Medications: Conscious sedation using *mg IV midazolam and *mcg IV of fentanyl The history and physical was performed/updated and the patient is ASA class is *. The procedure was discussed in detail with the patient. Potential risks complications including infection, bleeding, missed diagnosis, perforation, need for surgery, and were explained. Their questions were answered and informed consent was obtained. Patient was brought to the procedure room and placed standard monitoring equipment. The patient's vital signs were monitored continuously throughout the entire procedure. Prior to starting time-out was performed. The patient was placed in the left lateral recumbent position. Procedural sedation was administered. Examination began with a thorough inspection of the perianal area there was no evidence of fissures, fistulae, external hemorrhoids or cutaneous malignancy. The colonoscopy scope was then placed into the anal canal and was advanced to the cecum, which was identified by the ileocecal valve, the appendiceal orifice and the confluence of the taenia. The scope was then slowly withdrawn examining colon thoroughly in all directions, irrigating it of any residual stool. Sigmoid diverticulosis 5 mm polyp of the descending colon removed with biopsy forceps The patient tolerated the procedure well. They will be discharged once criteria are met. The prep was of good/excellent quality. The withdrawl time was 16 minutes. The sedation time was 31 minutes. Specimen(s): other (Descending colon polyp) Complications: none Impression: Colonic polyp Post-procedure Recommendations: Colonscopy in 5 years Disposition: same day surgery
== END 2020-11-02 11:13 | disposition home or self-care (01) ==
PROVIDERS: PCP Family Medicine; Referring Provider Surgery; Visit Provider Surgery
PROC: 0DJD8ZZ Inspection of Lower Intestinal Tract, Via Natural or Artificial Opening Endoscopic (ICD-10-PCS; CPT 45378; principal; 2020-11-02 10:00)
DX: K92.1 Melena (principal); K57.30 Diverticulosis of large intestine without perforation or abscess without bleeding; F17.210 Nicotine dependence, cigarettes, uncomplicated; J44.9 Chronic obstructive pulmonary disease, unspecified
CPT/HCPCS: 45380; 99152; 99153; J2250; J3010

== ENCOUNTER → 2020-11-05 16:53 | Outpatient (CLI) | payer OTHER, MEDICAID, SELFPAY ==
[2020-11-05] MEDS: COVID-19 VACC, Ad26(JANSSEN)/PF 0.5 ML IM (17:01)
== END ==
PROVIDERS: PCP Family Medicine; Visit Provider Internal Medicine
DX: Z23 Encounter for immunization (principal)
CPT/HCPCS: 0031A; 91303

== ENCOUNTER → 2021-05-15 12:51 | Outpatient (CLI) | payer OTHER, MEDICAID, SELFPAY ==
--- NOTE | 2021-05-15 | DI.MG.S_ITS ---
BILATERAL DIGITAL SCREENING MAMMOGRAM 3D/2D WITH CAD: 05/15/2021 CLINICAL: Routine screening. Family history of breast cancer. Comparison is made to exams dated: 04/10/2020 mammogram, 03/18/2019 mammogram, and 03/12/2018 mammogram - [facility]. There are scattered fibroglandular elements in both breasts. Current study was also evaluated with a Computer Aided Detection (CAD) system. No significant masses, calcifications, or other findings are seen in either breast. There has been no significant interval change. IMPRESSION: NEGATIVE There is no mammographic evidence of malignancy. A 1 year screening mammogram is recommended. This exam was interpreted at Station ID: [id number]. NOTE: For mammograms, a report in lay terms will be sent to the patient. Approximately 15% of breast malignancies will not be visualized mammographically. In the management of a palpable breast mass, a negative mammogram must not discourage biopsy of a clinically suspicious lesion. Electronically Signed By: Jignesh Vilchis acr/penrad:05/17/2021 08:01:15 letter sent: Normal Exam ACR BI-RADS Category 1: Negative 3341F
== END ==
PROVIDERS: PCP Family Medicine; Referring Provider Family Medicine; Visit Provider Family Medicine
DX: Z12.31 Encounter for screening mammogram for malignant neoplasm of breast (principal)
CPT/HCPCS: 77063; 77067

== ENCOUNTER → 2021-09-28 16:25 | Outpatient (CLI) | payer OTHER, MEDICAID, SELFPAY ==
[2021-09-28 17:54] LABS: Thyroid Stimulating Hormone 2.17 uIU/mL (0.47-4.68)
== END ==
PROVIDERS: PCP Family Medicine; Referring Provider Physician Assistant; Visit Provider Physician Assistant
DX: E03.9 Hypothyroidism, unspecified (principal)
CPT/HCPCS: 36415; 84443

== ENCOUNTER → 2021-10-27 17:25 | Outpatient (CLI) | payer OTHER, MEDICAID, SELFPAY ==
[2021-10-27 18:43] LABS: Appearance Urine UA CLEAR; Bilirubin Urine UA NEGATIVE (NEGATIVE); Color Urine UA YELLOW; Glucose Urine UA NEGATIVE (Negative); Ketones Urine UA NEGATIVE (NEGATIVE); Leukocyte Esterase Urine UA NEGATIVE (NEGATIVE); Nitrite Urine UA NEGATIVE (Negative); Occult Blood Urine UA 3+ (Negative); Protein Urine UA NEGATIVE (Negative); Specific Gravity Urine UA 1.025 (1.000-1.035); Urobilinogen Urine UA 0.2 E.U./dL (0.2)
[2021-10-27 18:57] LABS: Amorphous Sediment Urine 1+; Bacteria Urine Moderate (10-30); RBC Urine 1-5/HPF (0-5/HPF); Squamous Epithelial Cell Urine 10-30 /HPF (0-5/HPF); WBC Urine 5-10/HPF (0-5/HPF)
== END ==
PROVIDERS: PCP Family Medicine; Visit Provider Obstetrics & Gynecology
DX: R31.29 Other microscopic hematuria (principal)
CPT/HCPCS: 81001; 87077; 87086; 87186

== ENCOUNTER → 2021-11-16 13:18 | Outpatient (CLI) | payer OTHER, MEDICAID, SELFPAY | PROVIDERS: PCP Family Medicine; Visit Provider Obstetrics & Gynecology | DX: N39.0 Urinary tract infection, site not specified (principal) | CPT/HCPCS: 87086; 87147 ==

== ENCOUNTER → 2021-12-23 09:16 | Outpatient (CLI) | payer OTHER, MEDICAID, SELFPAY | PROVIDERS: Family Provider Family Medicine; PCP Family Medicine; Visit Provider Urology | DX: R30.0 Dysuria (principal) | CPT/HCPCS: 87086 ==

== ENCOUNTER → 2021-12-23 09:18 | Outpatient (CLI) | payer OTHER, MEDICAID, SELFPAY ==
[2021-12-23 09:59] LABS: BUN Creatinine Ratio 22.7 (6-22); Blood Urea Nitrogen 15 mg/dL (7-17); Carbon Dioxide 28 mmol/L (22-32); Chloride 105 mmol/L (98-107); Estimated Glomerular Filt Rate > 60 mL/min (>60); Glucose 92 mg/dL (70-100); HEMOLYSIS < 15 (0-50); Potassium 4.7 mmol/L (3.4-5.1); Sodium 139 mmol/L (137-145)
== END ==
PROVIDERS: Family Provider Family Medicine; PCP Family Medicine; Referring Provider Urology; Visit Provider Urology
DX: R31.29 Other microscopic hematuria (principal); R30.0 Dysuria; N95.2 Postmenopausal atrophic vaginitis; F17.200 Nicotine dependence, unspecified, uncomplicated
CPT/HCPCS: 36415; 80048; 81002; 87077; 87086; 87186; 99214

== ENCOUNTER → 2022-01-06 14:15 | Outpatient (CLI) | payer OTHER, MEDICAID, SELFPAY ==
--- NOTE | 2022-01-06 14:17 | DI.CT.S_ITS ---
PROCEDURE: CT ABDOMEN PELVIS WO/W CON INDICATIONS: Asymptomatic microscopic hematuria, tobacco use TECHNIQUE: Optional 5 mm thick noncontrast images acquired from the diaphragm to the symphysis pubis. After the administration of intravenous contrast, 5 mm thick images acquired from the diaphragm to the symphysis pubis after a 10-minute delay. 2 mm thick coronal and sagittal reformats were then performed of the kidneys and ureters. For radiation dose reduction, the following was used: automated exposure control, adjustment of mA and/or kV according to patient size. COMPARISON: [facility], ABDOMEN LIMITED, 07/04/2019, 22:33. FINDINGS: Image quality: Excellent. Lung bases: Lung bases are clear. Heart size is normal. Urinary system: Both kidneys are normal in size, without hydronephrosis or nephrolithiasis on pre-contrast images. Is 0.7 x 0.3 cm hypodensity lesion is seen in the interpolar region of the right kidney that is too small to characterize, but likely represents a cyst. No perinephric fat stranding. There is normal bilateral renal enhancement. Renal calyces appear normal in morphology when filled with contrast. Opacified portions of both ureters demonstrate normal caliber. Bladder wall thickness is normal. No calcified bladder stones. Other solid organs: Multiple low-density lesions in the liver are consistent with cysts. Gallbladder is mildly contracted. Biliary system is non dilated. Pancreas enhances normally. Spleen is normal in size and enhancement. No adrenal nodules. Peritoneum and bowel: Multiple diverticula are seen in the colon without signs of acute diverticulitis. Normal appendix. Small bowel loops are unremarkable. Small hiatal hernia. No free fluid or air. Nodes and vessels: No retroperitoneal or mesenteric adenopathy by size criteria. Aorta and inferior vena cava are normal in size. Mild to moderate aortic atherosclerotic calcifications. Abdominal wall: A fat containing periumbilical hernia is present. Pelvis: No pathologic free pelvic fluid. Bilateral fat containing inguinal hernias. Bones: No suspicious bony lesions. No vertebral body compression fractures. Mild degenerative changes are seen in the spine. IMPRESSION: 1. No suspicious urothelial lesion. No tract calculus. 2. Small hepatic and renal cysts. 3. Colonic diverticulosis. Small hiatal hernia. 4. Small fat containing periumbilical and bilateral inguinal hernias. Dictated by: Jovany Grimes M.D. on 01/06/2022 at 15:46 Approved by: Jovany Grimes M.D. on 01/06/2022 at 15:56
== END ==
PROVIDERS: Family Provider Family Medicine; PCP Family Medicine; Referring Provider Urology; Visit Provider Urology
DX: R31.29 Other microscopic hematuria (principal); K57.90 Diverticulosis of intestine, part unspecified, without perforation or abscess without bleeding; K76.89 Other specified diseases of liver; N28.1 Cyst of kidney, acquired; K44.9 Diaphragmatic hernia without obstruction or gangrene; K42.9 Umbilical hernia without obstruction or gangrene; K40.10 Bilateral inguinal hernia, with gangrene, not specified as recurrent; F17.200 Nicotine dependence, unspecified, uncomplicated
CPT/HCPCS: 74178; Q9967

== ENCOUNTER → 2022-02-23 17:27 | Outpatient (CLI) | payer OTHER, MEDICAID, SELFPAY | PROVIDERS: Family Provider Family Medicine; PCP Family Medicine; Visit Provider Physician Assistant | DX: R30.0 Dysuria (principal) | CPT/HCPCS: 81002; 87077; 87086; 87186 ==

== ENCOUNTER 2022-03-17 10:30 | Outpatient (RCR) | payer OTHER, MEDICAID, SELFPAY ==
--- NOTE | 2021-12-28 18:38 | PT.OPPOC ---
Physical, Occupational & Speech Therapy At [facility] Current Diagnoses Mixed incontinence (12/28/21) Cystocele, unspecified (12/28/21) Visit Care Team Role Provider Type Thee Arreola MD Family Provider Physician Primary Care Provider Specialty: Family Practice Address: [address] [place] [address], [id number] Email: [email or web address] Lamine Adam MD Attending Provider Physician Referring Provider Specialty: WIRE MACHINE CUTTER Address: [address] [place] [address], [address], [place], [address] Email: [email or web address] Plan Of Care PT-OP-T Assessment and Plan Start: 12/26/21 13:44 Freq: Status: Active Protocol: Document 12/28/21 10:36 LRN (Rec: 12/28/21 12:47 LRN [id number]) Physical Therapy Assessment Rehab Potential Rehabilitation Potential Good Evaluation Complexity Number of Personal Factors/Comorbidities 3 or More Number of Body Systems Impaired 4 or More Clinical Presentation at Evaluation Evolving Impairments Impairments Pain,ROM,Soft Tissue Mobility, Transfers Other Impairments Urinary leakage mostly controlled with medication. Occasional constipation. Urinary leakage with a strong urge Goals Five Impairment Urinary leakage in the presence of a strong urge Short Term Goal (STG) Pt will be educated in urinary delay technique. STG Duration 01/07/22 Slide Maker Goal (LTG) Pt will be able to maintain urinary continence in the presence of a strong urge. LTG Duration 02/26/22 Four Impairment Decreased PF Quick Flick strength and ability to relax the PF Short Term Goal (STG) Pt will be able to perform 10 reps of Quick Flicks with relaxation between contractions prior to fatigue. STG Duration 01/27/22 Longterm Goal (LTG) Pt will have decreased complaints of urinary stress incontinent symptoms with a strong urge. LTG Duration 02/26/22 Three Impairment Decreased PF endurance Short Term Goal (STG) Improve PF strength so that pt can contract the PF for 8 secs prior to fatigue and be able to relax the PF after contraction. STG Duration 01/27/22 Slide Maker Goal (LTG) Decrease prolapse with improved bladder positioning in supine. LTG Duration 02/26/22 Two Impairment PF pain with palpation Short Term Goal (STG) Pt will be educated in appropriate self stretching of PF (Hip stretch, wand). STG Duration 01/14/22 Longterm Goal (LTG) Pt has decreased complaints of tenderness of the superficial and deep PF muscles. LTG Duration 02/26/22 One Impairment Pt lacks appropriates self care HEP Short Term Goal (STG) Pt will be educated in proper transfers and body mechanics. STG Duration 01/19/22 Longterm Goal (LTG) Pt will be educated in HEP of PF stretching and strengthening, proper PF care, hip mobility ROM ex's. LTG Duration 03/12/22 Assessment Summary Assessment Pt presents with PF tightness with pain, probably contributing to her urinary incontinence. She has good PF strength, but her ability to hold a contraction is inconsistent both her quick flick and long holding muscle groups. She demonstrates good hip strength, except L hip ER . She appears to have assymetry of hip mobility, poor core strength with possible diastasis rectus and Breathholding with transfers. She appears to be having less reported episodes of urinary incontinence now that she is taking medications (pt unable to identify what she is taking ) and wasn't sure if she needed therapy with her medications. From conversation she appears to still be withholding intake of fluids as a way to manage her urinary incontinence; therefore the pt will benefit from skilled physical therapy to work towards decreasing her PF ms tone, improving the symmetry and consistence of her PF contraction with good ability to relax her PF, improve hip mobility and strength symmetry, improve core stability and education in proper PF care, body mechanics, breathing, bowel management and HEP. Physical Therapy Plan Frequency and Duration Frequency of Treatment 1x/Week Plan of Care Start Date 12/28/21 Plan of Care End Date 03/12/22 Therapeutic Interventions Therapeutic Interventions Home Exercise Program,Joint Mobilizations,Manual Therapy, Neuromuscular Re-education, Patient/Caregiver Education, Self-Care/Home Management,Soft Tissue Mobilization, Therapeutic Activities, Therapeutic Exercises Modalities Biofeedback,Cold Pack/Ice Massage,Electric Stimulation, Hot Packs Next Visit Focus/Plan Next Note Type Treatment Note Next Visit Plan Review Bladder diary and make recommendations as needed. Check PSLR. Assess DR and trunk rotators for strength. Assess PF tone with EMG biofeedback. Start HEP: trunk L rotation; hip stretches: ER/Adductors (L>R), IR (R>L), Happy Baby Pose. Manual therapy to stretch PF and issue wand for self stretch HEP. Deep breathing for ms relaxation. Transfer training. Hold EStim until testing for cancer complete. Plan of Care Dates Plan of Care Start Date 12/28/21 Plan of Care End Date 03/12/22 Electronically Signed by: Riddhi Spence, PT 12/28/21 [id number] If you are in agreement with this Plan of Care, please return a signed and dated copy. I have reviewed this Plan of Care and certify that the skilled therapy services above are required to meet the patient?s needs. Physician Signature Date Printed Name and Credentials Clinical Instructor Signature Printed Name and Credentials
--- NOTE | 2021-12-28 18:38 | PT.OIE ---
Current Diagnoses Mixed incontinence (12/28/21) Cystocele, unspecified (12/28/21) Past Medical History (Last Reviewed 12/23/21 @ 09:16 by Omar Monahan MD) Acute epigastric pain Anxiety Anxiety Atypical chest pain Bronchitis Bronchitis Chest pain Chest pain COPD (chronic obstructive pulmonary disease) case management patient Cystocele with uterine descensus (02/06/15) History of COVID-19 History of irregular menstrual cycles (~2013) Inguinal hernia Normal cardiac stress test (~07/01/19) Polyp of cervix (02/06/15) Sinusitis Thyroid disease Past Surgical History (Last Reviewed 12/23/21 @ 09:16 by Omar Monahan MD) Status post tubal ligation (12/24/03) Visit Care Team Role Provider Type Thee Arreola MD Family Provider Physician Primary Care Provider Specialty: Family Practice Address: [address] [place] [address], [facility] Email: [email or web address] Lamine Adam MD Attending Provider Physician Referring Provider Specialty: AUDIO EXPERIENCE EXPERT Address: [address] [place] [address], [address], [place], [facility] Email: [email or web address] Physical Therapy Initial Evaluation PT-OP-A Visit Information Start: 12/26/21 13:44 Freq: Status: Active Protocol: Document 12/28/21 10:36 LRN (Rec: 12/28/21 12:47 LRAny [id number]) Out-Patient Physical Therapy Visit Information Visit Information Visit Type Initial Evaluation Visit Start Time 10:36 Visit Stop Time 11:20 Total Visit Minutes 44 Visit Number 1 Evaluation Information Evaluation Date 12/28/21 Precautions Precautions Pt reports she is having future tests for possible bladder or vaginal cancer. PT-OP-B Current Condition Start: 12/26/21 13:44 Freq: Status: Active Protocol: Document 12/28/21 10:36 LRN (Rec: 12/28/21 12:47 LRN [id number]) Current Condition History of Current Condition Onset Date 2 months ago Current Complaints urinary leakage that has improved with medicine. History of Current Condition Insidious onset of urinary leakage. From Dr. Adam OBGYN at , Got Estadial cream for vaginal tissue health, and medication to stop the bladder leakage that has been helpful. L handed. Thyroid disorder. Future Testing and Treatments Planned She thinks she is doing a procedure 01/07/[address] Monahan from urology, to make sure there is no cancer due to microscopic blood in urine. Treatment Goals Patient/Caregiver Goals Pt goal is to strengthen the PF muscles to prevent a surgery. Prior Functional Status Baseline Function- ADL's Independent Baseline Function- Mobility Independent Baseline Function- Other Leakage was daily struggling to get to bathroom and large leakage wetting under and outer clothing. Was leaking once day. Stopped drinking fluids and was leaking 1x/week . Then given medication for leakage and leaked 1x/week with less urine. The urge is less with leakage. Current Functional Impairments (Reported) Functional Limitations- ADL's None. 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 Urge is less with leakage. 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 Pt reports having 5 vaginal births with history of tearing of unknown degree. PT-OP-C Subjective Start: 12/26/21 13:44 Freq: Status: Active Protocol: Document 12/28/21 10:36 LRN (Rec: 12/28/21 12:47 LRN [id number]) Patient Questionnaires Pelvic Pain and Urgency/Frequency Patient Symptom Scale Pelvic Pain Score 7 PT-OP-I Pelvic Floor Start: 12/26/21 13:44 Freq: Status: Active Protocol: Document 12/28/21 10:36 LRN (Rec: 12/28/21 12:47 LRN [id number]) Pelvic Floor Assessment Urine Urinary Symptoms Urge Sensation,Dribbling After Urination,Pain Other Urinary Symptoms Abdominal pain. Leakage Size Medium Leakage Cause Cough,Urge Other Leakage Causes Leaks 1x/week. Nocturia 1x/night Pads Used In 24 Hours 0 Bowel Bowel Symptoms Constipation Other Bowel Symptoms Sometimes constipated Pelvic Clock Pelvic Clock 12-3 Tenderness,Tightness Pelvic Clock 3-6 Tenderness,Tightness Pelvic Clock 6-9 Tenderness,Tightness Pelvic Clock 9-12 Tenderness,Tightness Pelvic Clock Other Transverse perineal ms tightness. Prolapse Cystocele Grade 3 Prolapse Comments Supine: Bladder does not bulge past vaginal opening Perineal Descent Resting Present Bearing Present Contraction Ability Voluntary Relaxation Weak Manual Muscle Testing Left 3 Manual Muscle Testing Right 2 Manual Muscle Testing Anterior 2 Manual Muscle Testing Posterior 3 Muscle Endurance (Seconds) 4 Number of Quick Contractions In 10 4 Seconds Comments Pelvic Floor Comments Mild gapping present at vaginal opening. Volutary relaxation is slow. Volutary contraction is variable around the PF clock and contraction felt present at various times around the PF clock. Posterior PF strength is less in the superficial vs deep PF muscles. PT-OP-J Posture/Palpation/Skin Start: 12/26/21 13:44 Freq: Status: Active Protocol: Document 12/28/21 10:36 LRN (Rec: 12/28/21 12:47 LRN [id number]) Posture Evaluation Position Standing Head/C-Spine Posture Forward Head Shoulder Posture (L) Forward,(R) Elevated PT-OP-K Range of Motion Start: 12/26/21 13:44 Freq: Status: Active Protocol: Document 12/28/21 10:36 LRN (Rec: 12/28/21 12:47 LRN [id number]) Lumbar Spine Range of Motion Lumbar Spine Active Degrees Testing Position Standing Flexion 105 Extension 10 Rotation Left 20 Rotation Right 30 Lateral Flexion Left 15 Lateral Flexion Right 15 ROM Limitations Soft Tissue Tightness Comments Trunk flexion is with 75 deg's hip flexion Trunk extension is with 5 deg' s hip extension Hip Goniometric Range of Motion Hip Right Passive Testing Position Supine Abduction 45 Internal Rotation 20 External Rotation 65 Comments Hip AB is ~ measurement. Left Passive Testing Position Supine Abduction 40 Internal Rotation 40 External Rotation 50 Comments Hip AB is ~ measurement. PT-OP-M Strength Start: 12/26/21 13:44 Freq: Status: Active Protocol: Document 12/28/21 10:36 LRN (Rec: 12/28/21 12:47 LRN [id number]) Trunk Strength Trunk Manual Muscle Testing Core Stabilization Not able to remain stable core with hip ER (L>R), R hip ext, hip AB/AD Hip Strength Hip Manual Muscle Testing Right Flexion (L2) 5 Normal Extension (S1) 5 Normal Abduction 5 Normal Adduction 5 Normal External Rotation 4+ Good+ Internal Rotation 5 Normal Left Flexion (L2) 5 Normal Extension (S1) 5 Normal Abduction 5 Normal Adduction 5 Normal External Rotation 5 Normal Internal Rotation 5 Normal PT-OP-Q Treatments Start: 12/26/21 13:44 Freq: Status: Active Protocol: Document 12/28/21 10:36 LRN (Rec: 12/28/21 12:47 LRN [id number]) Self-Care/Home Management Treatment Education Patient Education Home Exercise Program Other Education Discussed results of evaluation, goals, and plan of care (POC). Pt agreeable to goals and POC. Activities Self-Care/Home Management Activities Issued & reviewed HEP: Kegel ex's and discussed exercise of Quick Flicks, Long Holds with emphysis on relaxation phase. Issued, discussed, & reviewed Bladder Diary for pt to complete over the next 7 days. Explained how to fill out diary and to include foods eaten and BM's. PT-OP-T Assessment and Plan Start: 12/26/21 13:44 Freq: Status: Active Protocol: Document 12/28/21 10:36 LRN (Rec: 12/28/21 12:47 LRN [id number]) Physical Therapy Assessment Rehab Potential Rehabilitation Potential Good Evaluation Complexity Number of Personal Factors/Comorbidities 3 or More Number of Body Systems Impaired 4 or More Clinical Presentation at Evaluation Evolving Impairments Impairments Pain,ROM,Soft Tissue Mobility, Transfers Other Impairments Urinary leakage mostly controlled with medication. Occasional constipation. Urinary leakage with a strong urge Goals Five Impairment Urinary leakage in the presence of a strong urge Short Term Goal (STG) Pt will be educated in urinary delay technique. STG Duration 01/07/22 Skilled Nursing Goal (LTG) Pt will be able to maintain urinary continence in the presence of a strong urge. LTG Duration 02/26/22 Four Impairment Decreased PF Quick Flick strength and ability to relax the PF Short Term Goal (STG) Pt will be able to perform 10 reps of Quick Flicks with relaxation between contractions prior to fatigue. STG Duration 01/27/22 Manager Development Goal (LTG) Pt will have decreased complaints of urinary stress incontinent symptoms with a strong urge. LTG Duration 02/26/22 Three Impairment Decreased PF endurance Short Term Goal (STG) Improve PF strength so that pt can contract the PF for 8 secs prior to fatigue and be able to relax the PF after contraction. STG Duration 01/27/22 Manager Development Goal (LTG) Decrease prolapse with improved bladder positioning in supine. LTG Duration 02/26/22 Two Impairment PF pain with palpation Short Term Goal (STG) Pt will be educated in appropriate self stretching of PF (Hip stretch, wand). STG Duration 01/14/22 Skilled Nursing Goal (LTG) Pt has decreased complaints of tenderness of the superficial and deep PF muscles. LTG Duration 02/26/22 One Impairment Pt lacks appropriates self care HEP Short Term Goal (STG) Pt will be educated in proper transfers and body mechanics. STG Duration 01/19/22 Manager Development Goal (LTG) Pt will be educated in HEP of PF stretching and strengthening, proper PF care, hip mobility ROM ex's. LTG Duration 03/12/22 Assessment Summary Assessment Pt presents with PF tightness with pain, probably contributing to her urinary incontinence. She has good PF strength, but her ability to hold a contraction is inconsistent both her quick flick and long holding muscle groups. She demonstrates good hip strength, except L hip ER . She appears to have assymetry of hip mobility, poor core strength with possible diastasis rectus and Breathholding with transfers. She appears to be having less reported episodes of urinary incontinence now that she is taking medications (pt unable to identify what she is taking ) and wasn't sure if she needed therapy with her medications. From conversation she appears to still be withholding intake of fluids as a way to manage her urinary incontinence; therefore the pt will benefit from skilled physical therapy to work towards decreasing her PF ms tone, improving the symmetry and consistence of her PF contraction with good ability to relax her PF, improve hip mobility and strength symmetry, improve core stability and education in proper PF care, body mechanics, breathing, bowel management and HEP. Physical Therapy Plan Frequency and Duration Frequency of Treatment 1x/Week Plan of Care Start Date 12/28/21 Plan of Care End Date 03/12/22 Therapeutic Interventions Therapeutic Interventions Home Exercise Program,Joint Mobilizations,Manual Therapy, Neuromuscular Re-education, Patient/Caregiver Education, Self-Care/Home Management,Soft Tissue Mobilization, Therapeutic Activities, Therapeutic Exercises Modalities Biofeedback,Cold Pack/Ice Massage,Electric Stimulation, Hot Packs Next Visit Focus/Plan Next Note Type Treatment Note Next Visit Plan Review Bladder diary and make recommendations as needed. Check PSLR. Assess DR and trunk rotators for strength. Assess PF tone with EMG biofeedback. Start HEP: trunk L rotation; hip stretches: ER/Adductors (L>R), IR (R>L), Happy Baby Pose. Manual therapy to stretch PF and issue wand for self stretch HEP. Deep breathing for ms relaxation. Transfer training. Hold EStim until testing for cancer complete.
--- NOTE | 2022-01-07 16:02 | PT.OTN ---
Current Diagnoses Mixed incontinence (01/07/22) Cystocele, unspecified (01/07/22) Physical Therapy Treatment Note PT-OP-A Visit Information Start: 12/26/21 13:44 Freq: Status: Active Protocol: Document 01/07/22 09:50 LRN (Rec: 01/07/22 10:33 LRN [id number]) Out-Patient Physical Therapy Visit Information Visit Information Visit Type Treatment Note Visit Start Time 09:50 Visit Stop Time 10:30 Total Visit Minutes 40 Visit Number 2 Evaluation Information Evaluation Date 12/28/21 Precautions Precautions Pt reports she is having follow up of cystoscopy for possible bladder or vaginal cancer. PT-OP-B Current Condition Start: 12/26/21 13:44 Freq: Status: Active Protocol: Document 12/28/21 10:36 LRN (Rec: 12/28/21 12:47 LRN [id number]) Current Condition History of Current Condition Onset Date 2 months ago Current Complaints urinary leakage that has improved with medicine. History of Current Condition Insidious onset of urinary leakage. From Dr. Adam OBGYN at , Got Estadial cream for vaginal tissue health, and medication to stop the bladder leakage that has been helpful. L handed. Thyroid disorder. Future Testing and Treatments Planned She thinks she is doing a procedure 01/07/[address] Monahan from urology, to make sure there is no cancer due to microscopic blood in urine. Treatment Goals Patient/Caregiver Goals Pt goal is to strengthen the PF muscles to prevent a surgery. Prior Functional Status Baseline Function- ADL's Independent Baseline Function- Mobility Independent Baseline Function- Other Leakage was daily struggling to get to bathroom and large leakage wetting under and outer clothing. Was leaking once day. Stopped drinking fluids and was leaking 1x/week . Then given medication for leakage and leaked 1x/week with less urine. The urge is less with leakage. Current Functional Impairments (Reported) Functional Limitations- ADL's None. 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 Urge is less with leakage. 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 Pt reports having 5 vaginal births with history of tearing of unknown degree. PT-OP-C Subjective Start: 12/26/21 13:44 Freq: Status: Active Protocol: Document 01/07/22 09:50 LRN (Rec: 01/07/22 10:33 LRN [id number]) OP-PT Subjective Patient Comments Patient Comments States cystoscopy was normal to rule out cancer in bladder and she thinks vaginal canal and will have a follow up in 6 months. PT-OP-I Pelvic Floor Start: 12/26/21 13:44 Freq: Status: Active Protocol: Document 12/28/21 10:36 LRN (Rec: 12/28/21 12:47 LRN [id number]) Pelvic Floor Assessment Urine Urinary Symptoms Urge Sensation,Dribbling After Urination,Pain Other Urinary Symptoms Abdominal pain. Leakage Size Medium Leakage Cause Cough,Urge Other Leakage Causes Leaks 1x/week. Nocturia 1x/night Pads Used In 24 Hours 0 Bowel Bowel Symptoms Constipation Other Bowel Symptoms Sometimes constipated Pelvic Clock Pelvic Clock 12-3 Tenderness,Tightness Pelvic Clock 3-6 Tenderness,Tightness Pelvic Clock 6-9 Tenderness,Tightness Pelvic Clock 9-12 Tenderness,Tightness Pelvic Clock Other Transverse perineal ms tightness. Prolapse Cystocele Grade 3 Prolapse Comments Supine: Bladder does not bulge past vaginal opening Perineal Descent Resting Present Bearing Present Contraction Ability Voluntary Relaxation Weak Manual Muscle Testing Left 3 Manual Muscle Testing Right 2 Manual Muscle Testing Anterior 2 Manual Muscle Testing Posterior 3 Muscle Endurance (Seconds) 4 Number of Quick Contractions In 10 4 Seconds Comments Pelvic Floor Comments Mild gapping present at vaginal opening. Volutary relaxation is slow. Volutary contraction is variable around the PF clock and contraction felt present at various times around the PF clock. Posterior PF strength is less in the superficial vs deep PF muscles. PT-OP-J Posture/Palpation/Skin Start: 12/26/21 13:44 Freq: Status: Active Protocol: Document 12/28/21 10:36 LRN (Rec: 12/28/21 12:47 LRN [id number]) Posture Evaluation Position Standing Head/C-Spine Posture Forward Head Shoulder Posture (L) Forward,(R) Elevated PT-OP-K Range of Motion Start: 12/26/21 13:44 Freq: Status: Active Protocol: Document 12/28/21 10:36 LRN (Rec: 12/28/21 12:47 LRN [id number]) Lumbar Spine Range of Motion Lumbar Spine Active Degrees Testing Position Standing Flexion 105 Extension 10 Rotation Left 20 Rotation Right 30 Lateral Flexion Left 15 Lateral Flexion Right 15 ROM Limitations Soft Tissue Tightness Comments Trunk flexion is with 75 deg's hip flexion Trunk extension is with 5 deg' s hip extension Hip Goniometric Range of Motion Hip Right Passive Testing Position Supine Abduction 45 Internal Rotation 20 External Rotation 65 Comments Hip AB is ~ measurement. Left Passive Testing Position Supine Abduction 40 Internal Rotation 40 External Rotation 50 Comments Hip AB is ~ measurement. PT-OP-M Strength Start: 12/26/21 13:44 Freq: Status: Active Protocol: Document 12/28/21 10:36 LRN (Rec: 12/28/21 12:47 LRN [id number]) Trunk Strength Trunk Manual Muscle Testing Core Stabilization Not able to remain stable core with hip ER (L>R), R hip ext, hip AB/AD Hip Strength Hip Manual Muscle Testing Right Flexion (L2) 5 Normal Extension (S1) 5 Normal Abduction 5 Normal Adduction 5 Normal External Rotation 4+ Good+ Internal Rotation 5 Normal Left Flexion (L2) 5 Normal Extension (S1) 5 Normal Abduction 5 Normal Adduction 5 Normal External Rotation 5 Normal Internal Rotation 5 Normal PT-OP-Q Treatments Start: 12/26/21 13:44 Freq: Status: Active Protocol: Document 01/07/22 09:50 LRN (Rec: 01/07/22 10:33 LRN [id number]) Therapeutic Exercises Supine Exercises Bowel massage Supine Exercise Name Bowel massage Reps/Minutes x 2 as straight and ILU massage Self-Care/Home Management Treatment Education Patient Education Home Exercise Program Other Education Reviewed bladder diary. Pt had no leakage. Discussed water intake norms, and BM/increased voiding noted . Discussed spacing of drinking water/coffee. Discussed bowel transit, discussed tightness of PF to prevent urinary leakage and hydration. Discussed holding off on stopping urinary flow as a way to strengthen the PF with discussion of possible risk of infection. Educated with use of anatomy handout a bowel massage. Activities Self-Care/Home Management Activities Issued & reviewed Bowel massage. PT-OP-T Assessment and Plan Start: 12/26/21 13:44 Freq: Status: Active Protocol: Document 01/07/22 09:50 LRN (Rec: 01/07/22 10:33 LRN [id number]) Physical Therapy Assessment Goals Five Impairment Urinary leakage in the presence of a strong urge Short Term Goal (STG) Pt will be educated in urinary delay technique. STG Duration 01/07/22 [facility] Goal (LTG) Pt will be able to maintain urinary continence in the presence of a strong urge. LTG Duration 02/26/22 Four Impairment Decreased PF Quick Flick strength and ability to relax the PF Short Term Goal (STG) Pt will be able to perform 10 reps of Quick Flicks with relaxation between contractions prior to fatigue. STG Duration 01/27/22 Doctor Of Dental Surgery Goal (LTG) Pt will have decreased complaints of urinary stress incontinent symptoms with a strong urge. LTG Duration 02/26/22 Three Impairment Decreased PF endurance Short Term Goal (STG) Improve PF strength so that pt can contract the PF for 8 secs prior to fatigue and be able to relax the PF after contraction. STG Duration 01/27/22 [facility] Goal (LTG) Decrease prolapse with improved bladder positioning in supine. LTG Duration 02/26/22 Two Impairment PF pain with palpation Short Term Goal (STG) Pt will be educated in appropriate self stretching of PF (Hip stretch, wand). STG Duration 01/14/22 Doctor Of Dental Surgery Goal (LTG) Pt has decreased complaints of tenderness of the superficial and deep PF muscles. LTG Duration 02/26/22 One Impairment Pt lacks appropriates self care HEP Short Term Goal (STG) Pt will be educated in proper transfers and body mechanics. STG Duration 01/19/22 Doctor Of Dental Surgery Goal (LTG) Pt will be educated in HEP of PF stretching and strengthening, proper PF care, hip mobility ROM ex's. LTG Duration 03/12/22 Assessment Summary Assessment Pt increased voiding at nighttime and urinary leakage appears to be due to too much fluid intake in AM. She also had increased voiding at time of BM and with discussion she sometimes had what she feels is constipation followed by loose stools. Her difficulty voiding may be due to tight PF since on initial exam pt had tightness and tenderness of PF . Pt diet appears to lack foods with fiber; therefore increase in fiber would be beneficial to promote consistency with BM's. Physical Therapy Plan Frequency and Duration Frequency of Treatment 1x/Week Plan of Care Start Date 12/28/21 Plan of Care End Date 03/12/22 Next Visit Focus/Plan Next Note Type Treatment Note Next Visit Plan Review Bladder diary for changes with more fluids in AM , fiber with foods & Bowel massage if needed. Check standing prolapse, supine PSLR . Educate in proper hip hinge for transfers. Assess DR and trunk rotators for strength. If no infection, start PF stretching and assess PF tone with EMG biofeedback. Start HEP: trunk L rotation; hip stretches: ER/Adductors (L>R), IR (R>L), Happy Baby Pose. Manual therapy to stretch PF and issue wand for self stretch HEP. Deep breathing for ms relaxation. Transfer training. Hold EStim until free from bladder or UTI.
--- NOTE | 2022-01-11 17:05 | PT.OTN ---
Current Diagnoses Mixed incontinence (01/11/22) Cystocele, unspecified (01/11/22) Physical Therapy Treatment Note PT-OP-A Visit Information Start: 12/26/21 13:44 Freq: Status: Active Protocol: Document 01/11/22 10:33 LRN (Rec: 01/11/22 11:20 LRN [id number]) Out-Patient Physical Therapy Visit Information Visit Information Visit Type Treatment Note Visit Start Time 10:33 Visit Stop Time 11:13 Total Visit Minutes 40 Visit Number 3 Evaluation Information Evaluation Date 12/28/21 Precautions Precautions Pt reports she is having follow up of cystoscopy for possible bladder or vaginal cancer. PT-OP-B Current Condition Start: 12/26/21 13:44 Freq: Status: Active Protocol: Document 12/28/21 10:36 LRN (Rec: 12/28/21 12:47 LRN [id number]) Current Condition History of Current Condition Onset Date 2 months ago Current Complaints urinary leakage that has improved with medicine. History of Current Condition Insidious onset of urinary leakage. From Dr. Adam OBGYN at , Got Estadial cream for vaginal tissue health, and medication to stop the bladder leakage that has been helpful. L handed. Thyroid disorder. Future Testing and Treatments Planned She thinks she is doing a procedure 01/07/[address] Monahan from urology, to make sure there is no cancer due to microscopic blood in urine. Treatment Goals Patient/Caregiver Goals Pt goal is to strengthen the PF muscles to prevent a surgery. Prior Functional Status Baseline Function- ADL's Independent Baseline Function- Mobility Independent Baseline Function- Other Leakage was daily struggling to get to bathroom and large leakage wetting under and outer clothing. Was leaking once day. Stopped drinking fluids and was leaking 1x/week . Then given medication for leakage and leaked 1x/week with less urine. The urge is less with leakage. Current Functional Impairments (Reported) Functional Limitations- ADL's None. 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 Urge is less with leakage. 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 Pt reports having 5 vaginal births with history of tearing of unknown degree. PT-OP-C Subjective Start: 12/26/21 13:44 Freq: Status: Active Protocol: Document 01/11/22 10:33 LRN (Rec: 01/11/22 11:20 LRN [id number]) OP-PT Subjective Patient Comments Patient Comments Having pain in low back. Yesterday had a lot of bowel movements. Didn't have one this morning. PT-OP-I Pelvic Floor Start: 12/26/21 13:44 Freq: Status: Active Protocol: Document 12/28/21 10:36 LRN (Rec: 12/28/21 12:47 LRN [id number]) Pelvic Floor Assessment Urine Urinary Symptoms Urge Sensation,Dribbling After Urination,Pain Other Urinary Symptoms Abdominal pain. Leakage Size Medium Leakage Cause Cough,Urge Other Leakage Causes Leaks 1x/week. Nocturia 1x/night Pads Used In 24 Hours 0 Bowel Bowel Symptoms Constipation Other Bowel Symptoms Sometimes constipated Pelvic Clock Pelvic Clock 12-3 Tenderness,Tightness Pelvic Clock 3-6 Tenderness,Tightness Pelvic Clock 6-9 Tenderness,Tightness Pelvic Clock 9-12 Tenderness,Tightness Pelvic Clock Other Transverse perineal ms tightness. Prolapse Cystocele Grade 3 Prolapse Comments Supine: Bladder does not bulge past vaginal opening Perineal Descent Resting Present Bearing Present Contraction Ability Voluntary Relaxation Weak Manual Muscle Testing Left 3 Manual Muscle Testing Right 2 Manual Muscle Testing Anterior 2 Manual Muscle Testing Posterior 3 Muscle Endurance (Seconds) 4 Number of Quick Contractions In 10 4 Seconds Comments Pelvic Floor Comments Mild gapping present at vaginal opening. Volutary relaxation is slow. Volutary contraction is variable around the PF clock and contraction felt present at various times around the PF clock. Posterior PF strength is less in the superficial vs deep PF muscles. PT-OP-J Posture/Palpation/Skin Start: 12/26/21 13:44 Freq: Status: Active Protocol: Document 12/28/21 10:36 LRN (Rec: 12/28/21 12:47 LRN [id number]) Posture Evaluation Position Standing Head/C-Spine Posture Forward Head Shoulder Posture (L) Forward,(R) Elevated PT-OP-K Range of Motion Start: 12/26/21 13:44 Freq: Status: Active Protocol: Document 12/28/21 10:36 LRN (Rec: 12/28/21 12:47 LRN [id number]) Lumbar Spine Range of Motion Lumbar Spine Active Degrees Testing Position Standing Flexion 105 Extension 10 Rotation Left 20 Rotation Right 30 Lateral Flexion Left 15 Lateral Flexion Right 15 ROM Limitations Soft Tissue Tightness Comments Trunk flexion is with 75 deg's hip flexion Trunk extension is with 5 deg' s hip extension Hip Goniometric Range of Motion Hip Right Passive Testing Position Supine Abduction 45 Internal Rotation 20 External Rotation 65 Comments Hip AB is ~ measurement. Left Passive Testing Position Supine Abduction 40 Internal Rotation 40 External Rotation 50 Comments Hip AB is ~ measurement. PT-OP-M Strength Start: 12/26/21 13:44 Freq: Status: Active Protocol: Document 12/28/21 10:36 LRN (Rec: 12/28/21 12:47 LRN [id number]) Trunk Strength Trunk Manual Muscle Testing Core Stabilization Not able to remain stable core with hip ER (L>R), R hip ext, hip AB/AD Hip Strength Hip Manual Muscle Testing Right Flexion (L2) 5 Normal Extension (S1) 5 Normal Abduction 5 Normal Adduction 5 Normal External Rotation 4+ Good+ Internal Rotation 5 Normal Left Flexion (L2) 5 Normal Extension (S1) 5 Normal Abduction 5 Normal Adduction 5 Normal External Rotation 5 Normal Internal Rotation 5 Normal PT-OP-Q Treatments Start: 12/26/21 13:44 Freq: Status: Active Protocol: Document 01/11/22 10:33 LRN (Rec: 01/11/22 11:20 LRN [id number]) Therapeutic Exercises Sitting Exercises Piriformis stretch Sitting Exercise Name 2 positions: Leg on plinth in ER & sitting knee to opposite shoulder Side bilateral Reps/Minutes 2x each Comments Extra time to determine best position for max tolerated stretch Hip Adductors stretch Sitting Exercise Name One leg up on plinth for Hip AD stretch Side bilateral Reps/Minutes 1' x 2 each Comments Extra time to determine best position for max tolerated stretch Standing Exercises Kegel w/Ham stretch Standing Exercise Name Hamstring stretch position for Kegel Reps/Minutes 2' Hamstring stretch Standing Exercise Name Hamstring stretch Side bilateral Reps/Minutes 2' Comments Extra time to determine best position for max tolerated stretch Manual Therapy Treatment Soft Tissue Mobilization PF external stretch Body Location External PF Mobilization Type Myofascial Release,Sustained Pressure Intensity/Depth Moderate Body Position Hooklying Comments Side to side stretch PF Body Location PF clock stretch: 5,6,7, 8 O' Clock Mobilization Type Sustained Pressure Intensity/Depth Superficial Body Position Hooklying Comments Pt relaxation felt in all areas Self-Care/Home Management Treatment Education Patient Education Home Exercise Program Other Education Educated pt in appropriate self stretching of PF (Hip stretch, wand). Educated pt in urinary delay technique and reviewed and discussed previous bladder diary and frequency of voiding . Activities Self-Care/Home Management Activities Issued & reviewed HEP of hip ADDuctor & Piriformis stretch in sitting. Issued Urinary delay technique after education. PT-OP-T Assessment and Plan Start: 12/26/21 13:44 Freq: Status: Active Protocol: Document 01/11/22 10:33 LRN (Rec: 01/11/22 11:20 LRN [id number]) Physical Therapy Assessment Goals Five Impairment Urinary leakage in the presence of a strong urge Short Term Goal (STG) Pt will be educated in urinary delay technique. STG Duration 01/07/22 (01/11/22: MET GOAL) [facility] Goal (LTG) Pt will be able to maintain urinary continence in the presence of a strong urge. LTG Duration 02/26/22 Four Impairment Decreased PF Quick Flick strength and ability to relax the PF Short Term Goal (STG) Pt will be able to perform 10 reps of Quick Flicks with relaxation between contractions prior to fatigue. STG Duration 01/27/22 Windows Security Analyst Goal (LTG) Pt will have decreased complaints of urinary stress incontinent symptoms with a strong urge. LTG Duration 02/26/22 Three Impairment Decreased PF endurance Short Term Goal (STG) Improve PF strength so that pt can contract the PF for 8 secs prior to fatigue and be able to relax the PF after contraction. STG Duration 01/27/22 Windows Security Analyst Goal (LTG) Decrease prolapse with improved bladder positioning in supine. LTG Duration 02/26/22 Two Impairment PF pain with palpation Short Term Goal (STG) Pt will be educated in appropriate self stretching of PF (Hip stretch, wand). (01/11/22: HEP: Hip adductors and Piriformis) STG Duration 01/14/22 (01/11/22: Progressed ) Windows Security Analyst Goal (LTG) Pt has decreased complaints of tenderness of the superficial and deep PF muscles. LTG Duration 02/26/22 One Impairment Pt lacks appropriates self care HEP Short Term Goal (STG) Pt will be educated in proper transfers and body mechanics. STG Duration 01/19/22 Windows Security Analyst Goal (LTG) Pt will be educated in HEP of PF stretching and strengthening, proper PF care, hip mobility ROM ex's. (01/11/22: HEP: Hip adductors and Piriformis) LTG Duration 03/12/22 (01/11/22: Progressed) Progress Towards Goals Progress Comments Progressed HEP. STG #5 MET. Assessment Summary Assessment Pt appears to have a good understanding of her issued home ex's. Pt responded well to PF stretching with a reduction in tenderpoints at PF clock 5, 6, 7. In standing , pt cystocele visible grade 3 with bladder inside vaginal canal & no notable lift of bladder with PF contraction. Physical Therapy Plan Frequency and Duration Frequency of Treatment 1x/Week Plan of Care Start Date 12/28/21 Plan of Care End Date 03/12/22 Next Visit Focus/Plan Next Note Type Treatment Note Next Visit Plan Review Bladder diary for changes in voiding with normalization BM's. Review and specify with hip stretches : ER/Adductors (L>R), IR (R>L) . Check supine PSLR. Educate in proper hip hinge for transfers and body mechanics ( proper breathing). Assess DR and trunk rotators for strength. PF stretching and educate in urinary leakage with stretchng. If no infection, start PF stretching with wand. Without infection consider assessing PF tone with EMG biofeedback. Start HEP: trunk L rotation; Happy Baby Pose. Deep breathing for ms relaxation. Hold EStim until free from bladder or UTI.
--- NOTE | 2022-01-18 12:29 | PT.OTN ---
Current Diagnoses Mixed incontinence (01/18/22) Cystocele, unspecified (01/18/22) Physical Therapy Treatment Note PT-OP-A Visit Information Start: 12/26/21 13:44 Freq: Status: Active Protocol: Document 01/18/22 11:24 LRN (Rec: 01/18/22 12:29 LRN [id number]) Out-Patient Physical Therapy Visit Information Visit Information Visit Type Treatment Note Visit Start Time 11:24 Visit Stop Time 12:04 Total Visit Minutes 40 Visit Number 4 Evaluation Information Evaluation Date 12/28/21 Precautions Precautions Pt reports she is having follow up of cystoscopy for possible bladder or vaginal cancer. ABdominal and L groin hernia. PT-OP-B Current Condition Start: 12/26/21 13:44 Freq: Status: Active Protocol: Document 12/28/21 10:36 LRN (Rec: 12/28/21 12:47 LRN [id number]) Current Condition History of Current Condition Onset Date 2 months ago Current Complaints urinary leakage that has improved with medicine. History of Current Condition Insidious onset of urinary leakage. From Dr. Adam OBGYN at , Got Estadial cream for vaginal tissue health, and medication to stop the bladder leakage that has been helpful. L handed. Thyroid disorder. Future Testing and Treatments Planned She thinks she is doing a procedure 01/07/[address] Monahan from urology, to make sure there is no cancer due to microscopic blood in urine. Treatment Goals Patient/Caregiver Goals Pt goal is to strengthen the PF muscles to prevent a surgery. Prior Functional Status Baseline Function- ADL's Independent Baseline Function- Mobility Independent Baseline Function- Other Leakage was daily struggling to get to bathroom and large leakage wetting under and outer clothing. Was leaking once day. Stopped drinking fluids and was leaking 1x/week . Then given medication for leakage and leaked 1x/week with less urine. The urge is less with leakage. Current Functional Impairments (Reported) Functional Limitations- ADL's None. 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 Urge is less with leakage. 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 Pt reports having 5 vaginal births with history of tearing of unknown degree. PT-OP-C Subjective Start: 12/26/21 13:44 Freq: Status: Active Protocol: Document 01/18/22 11:24 LRN (Rec: 01/18/22 12:29 LRN [id number]) OP-PT Subjective Patient Comments Patient Comments Having back pains. Had ice cream; therefore had a lot of BM's. Onset of back pain, not from lifting. After last sesion felt weird in the back but then didn't hurt the next day. Yesterday starting feeling the back again but fine today. Has been feeling stomach is like a balloon. Back pain sometimes when lying down on the back she feels like the back is straining, but less in L sidelie. Pain is in the R low back below the Iliac crest. Has had 5 children, tubes tied. Pain is 0/10. PT-OP-I Pelvic Floor Start: 12/26/21 13:44 Freq: Status: Active Protocol: Document 12/28/21 10:36 LRN (Rec: 12/28/21 12:47 LRN [id number]) Pelvic Floor Assessment Urine Urinary Symptoms Urge Sensation,Dribbling After Urination,Pain Other Urinary Symptoms Abdominal pain. Leakage Size Medium Leakage Cause Cough,Urge Other Leakage Causes Leaks 1x/week. Nocturia 1x/night Pads Used In 24 Hours 0 Bowel Bowel Symptoms Constipation Other Bowel Symptoms Sometimes constipated Pelvic Clock Pelvic Clock 12-3 Tenderness,Tightness Pelvic Clock 3-6 Tenderness,Tightness Pelvic Clock 6-9 Tenderness,Tightness Pelvic Clock 9-12 Tenderness,Tightness Pelvic Clock Other Transverse perineal ms tightness. Prolapse Cystocele Grade 3 Prolapse Comments Supine: Bladder does not bulge past vaginal opening Perineal Descent Resting Present Bearing Present Contraction Ability Voluntary Relaxation Weak Manual Muscle Testing Left 3 Manual Muscle Testing Right 2 Manual Muscle Testing Anterior 2 Manual Muscle Testing Posterior 3 Muscle Endurance (Seconds) 4 Number of Quick Contractions In 10 4 Seconds Comments Pelvic Floor Comments Mild gapping present at vaginal opening. Volutary relaxation is slow. Volutary contraction is variable around the PF clock and contraction felt present at various times around the PF clock. Posterior PF strength is less in the superficial vs deep PF muscles. PT-OP-J Posture/Palpation/Skin Start: 12/26/21 13:44 Freq: Status: Active Protocol: Document 12/28/21 10:36 LRN (Rec: 05/03/22 12:47 LRN [id number]) Posture Evaluation Position Standing Head/C-Spine Posture Forward Head Shoulder Posture (L) Forward,(R) Elevated PT-OP-K Range of Motion Start: 12/26/21 13:44 Freq: Status: Active Protocol: Document 12/28/21 10:36 LRN (Rec: 12/28/21 12:47 LRN [id number]) Lumbar Spine Range of Motion Lumbar Spine Active Degrees Testing Position Standing Flexion 105 Extension 10 Rotation Left 20 Rotation Right 30 Lateral Flexion Left 15 Lateral Flexion Right 15 ROM Limitations Soft Tissue Tightness Comments Trunk flexion is with 75 deg's hip flexion Trunk extension is with 5 deg' s hip extension Hip Goniometric Range of Motion Hip Right Passive Testing Position Supine Abduction 45 Internal Rotation 20 External Rotation 65 Comments Hip AB is ~ measurement. Left Passive Testing Position Supine Abduction 40 Internal Rotation 40 External Rotation 50 Comments Hip AB is ~ measurement. PT-OP-M Strength Start: 12/26/21 13:44 Freq: Status: Active Protocol: Document 12/28/21 10:36 LRN (Rec: 12/28/21 12:47 LR [id number]) Trunk Strength Trunk Manual Muscle Testing Core Stabilization Not able to remain stable core with hip ER (L>R), R hip ext, hip AB/AD Hip Strength Hip Manual Muscle Testing Right Flexion (L2) 5 Normal Extension (S1) 5 Normal Abduction 5 Normal Adduction 5 Normal External Rotation 4+ Good+ Internal Rotation 5 Normal Left Flexion (L2) 5 Normal Extension (S1) 5 Normal Abduction 5 Normal Adduction 5 Normal External Rotation 5 Normal Internal Rotation 5 Normal PT-OP-Q Treatments Start: 12/26/21 13:44 Freq: Status: Active Protocol: Document 01/18/22 11:24 LRN (Rec: 01/18/22 12:29 LR [id number]) Therapeutic Exercises Supine Exercises Hamstring/LE neural stretch Supine Exercise Name Hamstring/LE neural stretch Side bilateral Reps/Minutes 1'x 2 each Comments ROM taken Sitting Exercises Piriformis stretch Sitting Exercise Name 2 positions: Leg on plinth in ER & sitting knee to opposite shoulder Side bilateral Reps/Minutes 2x each Comments Extra time to determine best position for max tolerated stretch Hip Adductors stretch Sitting Exercise Name One leg up on plinth for Hip AD stretch Side bilateral Reps/Minutes 1' x 2 each Comments Extra time to determine best position for max tolerated stretch Self-Care/Home Management Treatment Education Other Education Reviewed bladder diary and recommended more fluid in mid day vs 12-16 oz after 8p. Discusssed voiding times of every 2 hrs was not bad, especially after drinking coffee. Activities Self-Care/Home Management Activities Issued & discussed proper body mechanics for daily activities and HEP for hamstring/LE neural stretch. PT-OP-T Assessment and Plan Start: 12/26/21 13:44 Freq: Status: Active Protocol: Document 01/18/22 11:24 LRN (Rec: 01/18/22 12:29 LRN [id number]) Physical Therapy Assessment Goals Five Impairment Urinary leakage in the presence of a strong urge Short Term Goal (STG) Pt will be educated in urinary delay technique. STG Duration 01/07/22 (01/11/22: MET GOAL) Construction Engineering Manager Goal (LTG) Pt will be able to maintain urinary continence in the presence of a strong urge. LTG Duration 02/26/22 Four Impairment Decreased PF Quick Flick strength and ability to relax the PF Short Term Goal (STG) Pt will be able to perform 10 reps of Quick Flicks with relaxation between contractions prior to fatigue. STG Duration 01/27/22 Custodial Goal (LTG) Pt will have decreased complaints of urinary stress incontinent symptoms with a strong urge. LTG Duration 02/26/22 Three Impairment Decreased PF endurance Short Term Goal (STG) Improve PF strength so that pt can contract the PF for 8 secs prior to fatigue and be able to relax the PF after contraction. STG Duration 01/27/22 Custodial Goal (LTG) Decrease prolapse with improved bladder positioning in supine. LTG Duration 02/26/22 Two Impairment PF pain with palpation Short Term Goal (STG) Pt will be educated in appropriate self stretching of PF (Hip stretch, wand). (01/11/22: HEP: Hip adductors and Piriformis) STG Duration 01/14/22 (01/11/22: Progressed ) Construction Engineering Manager Goal (LTG) Pt has decreased complaints of tenderness of the superficial and deep PF muscles. LTG Duration 02/26/22 One Impairment Pt lacks appropriates self care HEP Short Term Goal (STG) Pt will be educated in proper transfers and body mechanics. STG Duration 01/19/22 (01/18/22: MET GOAL) Custodial Goal (LTG) Pt will be educated in HEP of PF stretching and strengthening, proper PF care, hip mobility ROM ex's. (01/11/22: HEP: Hip adductors and Piriformis) (01/18/22: HEP: Hamstring/LE neural stretch) LTG Duration 03/12/22 (01/18/22: Progressed, Hip mobility ex's issued) Progress Towards Goals Progress Comments STG #1 MET. LTG #1 Progresssed, completed HEP of hip mobility ROM ex's. Assessment Summary Assessment Pt needed review of hip stretches due to unfamiliarity except for hip AD stretch. Pt found use of urinary delay technique was helpful in defering urination. Per bladder diary, the pt had increased voiding after last session (PF STM done) but after 1 day her voiding was every 2-3 hrs. Improvement in BM's to minimal daily. Pt today has decreased hamstring mobility on R, same as what her LBP WAS. No c/o of LBP today. Pt feels her pain when present can be one side, both sides and deep. LBP doesn't seem to be associated to bowel movements since she is still having LBP in the abscence of constipation (note pt reports history of disc problems from job). Physical Therapy Plan Frequency and Duration Frequency of Treatment 1x/Week Plan of Care Start Date 12/28/21 Plan of Care End Date 03/12/22 Next Visit Focus/Plan Next Note Type Treatment Note Next Visit Plan Review daily activity body mechanics Educate in proper hip hinge for transfers and body mechanics (proper breathing). Assess DR and trunk rotators for strength. PF stretching and educate in urinary leakage with stretchng . If no infection, start PF stretching with wand. Without infection consider assessing PF tone with EMG biofeedback. Start HEP: trunk L rotation; Happy Baby Pose. Deep breathing for ms relaxation. Hold EStim until free from bladder or UTI.
--- NOTE | 2022-01-27 12:25 | PT.OTN ---
Current Diagnoses Mixed incontinence (01/27/22) Cystocele, unspecified (01/27/22) Physical Therapy Treatment Note PT-OP-A Visit Information Start: 12/26/21 13:44 Freq: Status: Active Protocol: Document 01/27/22 09:50 LRN (Rec: 01/27/22 10:33 LRN [id number]) Out-Patient Physical Therapy Visit Information Visit Information Visit Type Treatment Note Visit Start Time 09:50 Visit Stop Time 10:30 Total Visit Minutes 40 Visit Number 5 Evaluation Information Evaluation Date 12/28/21 Precautions Precautions Pt reports she is having follow up of cystoscopy for possible bladder or vaginal cancer. ABdominal and L groin hernia. PT-OP-B Current Condition Start: 12/26/21 13:44 Freq: Status: Active Protocol: Document 12/28/21 10:36 LRN (Rec: 12/28/21 12:47 LRN [id number]) Current Condition History of Current Condition Onset Date 2 months ago Current Complaints urinary leakage that has improved with medicine. History of Current Condition Insidious onset of urinary leakage. From Dr. Adam OBGYN at , Got Estadial cream for vaginal tissue health, and medication to stop the bladder leakage that has been helpful. L handed. Thyroid disorder. Future Testing and Treatments Planned She thinks she is doing a procedure 01/07/[address] Monahan from urology, to make sure there is no cancer due to microscopic blood in urine. Treatment Goals Patient/Caregiver Goals Pt goal is to strengthen the PF muscles to prevent a surgery. Prior Functional Status Baseline Function- ADL's Independent Baseline Function- Mobility Independent Baseline Function- Other Leakage was daily struggling to get to bathroom and large leakage wetting under and outer clothing. Was leaking once day. Stopped drinking fluids and was leaking 1x/week . Then given medication for leakage and leaked 1x/week with less urine. The urge is less with leakage. Current Functional Impairments (Reported) Functional Limitations- ADL's None. 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 Urge is less with leakage. 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 Pt reports having 5 vaginal births with history of tearing of unknown degree. PT-OP-C Subjective Start: 12/26/21 13:44 Freq: Status: Active Protocol: Document 01/27/22 09:50 LRN (Rec: 01/27/22 10:33 LRN [id number]) OP-PT Subjective Patient Comments Patient Comments Had some stress. Had some issues. Had a lot of pain the evening of the last session. Was showering and bent over to dry knees and had pain shoot across her lower back. Had to use [place] [employer] and is better. States she is now more aware of her posturing sitting. PT-OP-I Pelvic Floor Start: 12/26/21 13:44 Freq: Status: Active Protocol: Document 12/28/21 10:36 LRN (Rec: 12/28/21 12:47 LRN [id number]) Pelvic Floor Assessment Urine Urinary Symptoms Urge Sensation,Dribbling After Urination,Pain Other Urinary Symptoms Abdominal pain. Leakage Size Medium Leakage Cause Cough,Urge Other Leakage Causes Leaks 1x/week. Nocturia 1x/night Pads Used In 24 Hours 0 Bowel Bowel Symptoms Constipation Other Bowel Symptoms Sometimes constipated Pelvic Clock Pelvic Clock 12-3 Tenderness,Tightness Pelvic Clock 3-6 Tenderness,Tightness Pelvic Clock 6-9 Tenderness,Tightness Pelvic Clock 9-12 Tenderness,Tightness Pelvic Clock Other Transverse perineal ms tightness. Prolapse Cystocele Grade 3 Prolapse Comments Supine: Bladder does not bulge past vaginal opening Perineal Descent Resting Present Bearing Present Contraction Ability Voluntary Relaxation Weak Manual Muscle Testing Left 3 Manual Muscle Testing Right 2 Manual Muscle Testing Anterior 2 Manual Muscle Testing Posterior 3 Muscle Endurance (Seconds) 4 Number of Quick Contractions In 10 4 Seconds Comments Pelvic Floor Comments Mild gapping present at vaginal opening. Volutary relaxation is slow. Volutary contraction is variable around the PF clock and contraction felt present at various times around the PF clock. Posterior PF strength is less in the superficial vs deep PF muscles. PT-OP-J Posture/Palpation/Skin Start: 12/26/21 13:44 Freq: Status: Active Protocol: Document 12/28/21 10:36 LRN (Rec: 12/28/21 12:47 LRN [id number]) Posture Evaluation Position Standing Head/C-Spine Posture Forward Head Shoulder Posture (L) Forward,(R) Elevated PT-OP-K Range of Motion Start: 12/26/21 13:44 Freq: Status: Active Protocol: Document 12/28/21 10:36 LRN (Rec: 12/28/21 12:47 LRN [id number]) Lumbar Spine Range of Motion Lumbar Spine Active Degrees Testing Position Standing Flexion 105 Extension 10 Rotation Left 20 Rotation Right 30 Lateral Flexion Left 15 Lateral Flexion Right 15 ROM Limitations Soft Tissue Tightness Comments Trunk flexion is with 75 deg's hip flexion Trunk extension is with 5 deg' s hip extension Hip Goniometric Range of Motion Hip Right Passive Testing Position Supine Abduction 45 Internal Rotation 20 External Rotation 65 Comments Hip AB is ~ measurement. Left Passive Testing Position Supine Abduction 40 Internal Rotation 40 External Rotation 50 Comments Hip AB is ~ measurement. PT-OP-M Strength Start: 12/26/21 13:44 Freq: Status: Active Protocol: Document 12/28/21 10:36 LRN (Rec: 12/28/21 12:47 LRN [id number]) Trunk Strength Trunk Manual Muscle Testing Core Stabilization Not able to remain stable core with hip ER (L>R), R hip ext, hip AB/AD Hip Strength Hip Manual Muscle Testing Right Flexion (L2) 5 Normal Extension (S1) 5 Normal Abduction 5 Normal Adduction 5 Normal External Rotation 4+ Good+ Internal Rotation 5 Normal Left Flexion (L2) 5 Normal Extension (S1) 5 Normal Abduction 5 Normal Adduction 5 Normal External Rotation 5 Normal Internal Rotation 5 Normal PT-OP-Q Treatments Start: 12/26/21 13:44 Freq: Status: Active Protocol: Document 01/27/22 09:50 LRN (Rec: 01/27/22 10:33 LRN [id number]) Therapeutic Exercises Supine Exercises Outer Hip stretch Supine Exercise Name Outer Hip stretch (knee to midline) Side bilateral Reps/Minutes 3' Comments Extra time for determining max tolerated stretch Piriformis stretch Supine Exercise Name Piriformis stretch Side bilateral Reps/Minutes 4' Comments Extra time for determining max tolerated stretch Happy Baby Pose Supine Exercise Name Happy Baby Pose Reps/Minutes 3' Comments Extra time for determining max tolerated stretch Hamstring/LE neural stretch Supine Exercise Name Hamstring/LE neural stretch Side bilateral Reps/Minutes 1'x 2 each Sitting Exercises Piriformis stretch Sitting Exercise Name 2 positions: Leg on plinth in ER & sitting knee to opposite shoulder Side bilateral Reps/Minutes 2x each Comments Extra time to review best position for max tolerated stretch Standing Exercises Hamstring stretch Standing Exercise Name Hamstring stretch Side bilateral Reps/Minutes 4' Comments Extra time to determine best position for max tolerated stretch Other Exercises Rock Back stretch Other Exercise Name PF stretch: Straight Rock Back Reps/Minutes 3' Comments Extra time to determine best position for max tolerated stretch Self-Care/Home Management Treatment Education Patient Education Home Exercise Program Other Education Discussed proper body mechanics to avoid back pain. Reviewed bladder diary and discussed use of Urinary delay technique to avoid leakage and drinking of caffeinated drink that increased frequency of voiding. Pt educated in proper use of Wand for PF stretching. Activities Self-Care/Home Management Activities Issued & reviewed HEP: Happy Baby Pose, sup Piriformis stretch, Outer hip/IT band stretch, Rock Backs & Standing Hamstring stretch. Issued and I/S pt in self PF stretching with Sm Wand if no Bladder or UTI. PT-OP-T Assessment and Plan Start: 12/26/21 13:44 Freq: Status: Active Protocol: Document 01/27/22 09:50 LRN (Rec: 01/27/22 10:33 LRN [id number]) Physical Therapy Assessment Goals Five Impairment Urinary leakage in the presence of a strong urge Short Term Goal (STG) Pt will be educated in urinary delay technique. STG Duration 01/07/22 (01/11/22: MET GOAL) Plastic Panel Installer Goal (LTG) Pt will be able to maintain urinary continence in the presence of a strong urge. LTG Duration 02/26/22 Four Impairment Decreased PF Quick Flick strength and ability to relax the PF Short Term Goal (STG) Pt will be able to perform 10 reps of Quick Flicks with relaxation between contractions prior to fatigue. STG Duration 01/27/22 Group Home Goal (LTG) Pt will have decreased complaints of urinary stress incontinent symptoms with a strong urge. LTG Duration 02/26/22 Three Impairment Decreased PF endurance Short Term Goal (STG) Improve PF strength so that pt can contract the PF for 8 secs prior to fatigue and be able to relax the PF after contraction. STG Duration 01/27/22 Group Home Goal (LTG) Decrease prolapse with improved bladder positioning in supine. LTG Duration 02/26/22 Two Impairment PF pain with palpation Short Term Goal (STG) Pt will be educated in appropriate self stretching of PF (Hip stretch, wand). (01/11/22: HEP: Hip adductors and Piriformis) (01/27/22: HEP: Happy Baby Pose, sup Piriformis stretch, Outer hip/IT band stretch, and Rock Backs, standing hamstring stretch) STG Duration 01/14/22 (01/27/22: Progressed) Plastic Panel Installer Goal (LTG) Pt has decreased complaints of tenderness of the superficial and deep PF muscles. LTG Duration 02/26/22 One Impairment Pt lacks appropriates self care HEP Short Term Goal (STG) Pt will be educated in proper transfers and body mechanics. STG Duration 01/19/22 (01/18/22: MET GOAL) Plastic Panel Installer Goal (LTG) Pt will be educated in HEP of PF stretching and strengthening, proper PF care, hip mobility ROM ex's. (01/11/22: HEP: Hip adductors and Piriformis) (01/18/22: HEP: Hamstring/LE neural stretch) (01/27/22: HEP: Happy Baby Pose, sup Piriformis stretch, Outer hip/IT band stretch, and Rock Backs, standing hamstring stretch) LTG Duration 03/12/22 (01/27/22: Progressed , new Hip mobility ex's issued ) Progress Towards Goals Progress Comments Progressed HEP. Assessment Summary Assessment No questions regarding with HEP. Pt appears to have a good understanding of her home stretches. Per bladder diary , pt has increased her BM frequency to daily and sometimes 2-3x/day. Her urinary voiding is mostly every 2 hours, except on the holiday day she had frequent urination almost hourly, possibly from drinking bladder irritatant fluids. Pt will continue to track for personal reasons her BM & urinary voiding. Physical Therapy Plan Frequency and Duration Frequency of Treatment 1x/Week Plan of Care Start Date 12/28/21 Plan of Care End Date 03/12/22 Next Visit Focus/Plan Next Note Type Treatment Note Next Visit Plan Hold EStim until free from bladder or UTI. Assess DR and trunk rotators for strength. Review daily activity body mechanics & Educate in proper hip hinge for transfers and body mechanics (proper breathing). Manual PF stretching, and educate in urinary leakage with stretching. If no infection, start PF stretching with wand. Without infection consider assessing PF tone with EMG biofeedback. Add HEP: trunk L rotation. Deep breathing for ms relaxation.
--- NOTE | 2022-02-15 12:16 | PT.OTN ---
Current Diagnoses Mixed incontinence (02/15/22) Cystocele, unspecified (02/15/22) Physical Therapy Treatment Note PT-OP-A Visit Information Start: 12/26/21 13:44 Freq: Status: Active Protocol: Document 02/15/22 11:25 LRN (Rec: 02/15/22 12:15 LRN [id number]) Out-Patient Physical Therapy Visit Information Visit Information Visit Type Treatment Note Visit Start Time 11:25 Visit Stop Time 12:10 Total Visit Minutes 45 Visit Number 6 Evaluation Information Evaluation Date 12/28/21 Precautions Precautions Pt reports she is having follow up of cystoscopy for possible bladder or vaginal cancer. ABdominal and L groin hernia. PT-OP-B Current Condition Start: 12/26/21 13:44 Freq: Status: Active Protocol: Document 12/28/21 10:36 LRN (Rec: 12/28/21 12:47 LRN [id number]) Current Condition History of Current Condition Onset Date 2 months ago Current Complaints urinary leakage that has improved with medicine. History of Current Condition Insidious onset of urinary leakage. From Dr. Adam OBGYN at , Got Estadial cream for vaginal tissue health, and medication to stop the bladder leakage that has been helpful. L handed. Thyroid disorder. Future Testing and Treatments Planned She thinks she is doing a procedure 01/07/[address] Monahan from urology, to make sure there is no cancer due to microscopic blood in urine. Treatment Goals Patient/Caregiver Goals Pt goal is to strengthen the PF muscles to prevent a surgery. Prior Functional Status Baseline Function- ADL's Independent Baseline Function- Mobility Independent Baseline Function- Other Leakage was daily struggling to get to bathroom and large leakage wetting under and outer clothing. Was leaking once day. Stopped drinking fluids and was leaking 1x/week . Then given medication for leakage and leaked 1x/week with less urine. The urge is less with leakage. Current Functional Impairments (Reported) Functional Limitations- ADL's None. 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 Urge is less with leakage. 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 Pt reports having 5 vaginal births with history of tearing of unknown degree. PT-OP-C Subjective Start: 12/26/21 13:44 Freq: Status: Active Protocol: Document 02/15/22 11:25 LRN (Rec: 02/15/22 12:15 LRN [id number]) OP-PT Subjective Patient Comments Patient Comments Seems like stretching of muscles feels better. No longer has a UTI. PT-OP-I Pelvic Floor Start: 12/26/21 13:44 Freq: Status: Active Protocol: Document 12/28/21 10:36 LRN (Rec: 12/28/21 12:47 LRN [id number]) Pelvic Floor Assessment Urine Urinary Symptoms Urge Sensation,Dribbling After Urination,Pain Other Urinary Symptoms Abdominal pain. Leakage Size Medium Leakage Cause Cough,Urge Other Leakage Causes Leaks 1x/week. Nocturia 1x/night Pads Used In 24 Hours 0 Bowel Bowel Symptoms Constipation Other Bowel Symptoms Sometimes constipated Pelvic Clock Pelvic Clock 12-3 Tenderness,Tightness Pelvic Clock 3-6 Tenderness,Tightness Pelvic Clock 6-9 Tenderness,Tightness Pelvic Clock 9-12 Tenderness,Tightness Pelvic Clock Other Transverse perineal ms tightness. Prolapse Cystocele Grade 3 Prolapse Comments Supine: Bladder does not bulge past vaginal opening Perineal Descent Resting Present Bearing Present Contraction Ability Voluntary Relaxation Weak Manual Muscle Testing Left 3 Manual Muscle Testing Right 2 Manual Muscle Testing Anterior 2 Manual Muscle Testing Posterior 3 Muscle Endurance (Seconds) 4 Number of Quick Contractions In 10 4 Seconds Comments Pelvic Floor Comments Mild gapping present at vaginal opening. Volutary relaxation is slow. Volutary contraction is variable around the PF clock and contraction felt present at various times around the PF clock. Posterior PF strength is less in the superficial vs deep PF muscles. PT-OP-J Posture/Palpation/Skin Start: 12/26/21 13:44 Freq: Status: Active Protocol: Document 02/15/22 11:25 LRN (Rec: 02/15/22 12:15 LRN [id number]) Palpation Assessment Location Diastasis Rectus Palpation Location DR with head lifts Palpation Details DR: ABove umbiolicus 2 to sternum is shallow 1/2 finger ,width , 1 shallow 1 finger width, Below umbilicus 1 is shallow 1 finger width, 2 and below is closed. PT-OP-K Range of Motion Start: 12/26/21 13:44 Freq: Status: Active Protocol: Document 12/28/21 10:36 LRN (Rec: 12/28/21 12:47 LRN [id number]) Lumbar Spine Range of Motion Lumbar Spine Active Degrees Testing Position Standing Flexion 105 Extension 10 Rotation Left 20 Rotation Right 30 Lateral Flexion Left 15 Lateral Flexion Right 15 ROM Limitations Soft Tissue Tightness Comments Trunk flexion is with 75 deg's hip flexion Trunk extension is with 5 deg' s hip extension Hip Goniometric Range of Motion Hip Right Passive Testing Position Supine Abduction 45 Internal Rotation 20 External Rotation 65 Comments Hip AB is ~ measurement. Left Passive Testing Position Supine Abduction 40 Internal Rotation 40 External Rotation 50 Comments Hip AB is ~ measurement. PT-OP-M Strength Start: 12/26/21 13:44 Freq: Status: Active Protocol: Document 02/15/22 11:25 LRN (Rec: 02/15/22 12:15 LRN [id number]) Trunk Strength Trunk Manual Muscle Testing Testing Position Sitting Flexion 5 Normal Extension 5 Normal Rotation Left 5 Normal Rotation Right 5 Normal Lateral Flexion Left 4- Good- Lateral Flexion Right 5 Normal Core Stabilization Weak with R rot with MMT of LE 's flex in supine. PT-OP-Q Treatments Start: 12/26/21 13:44 Freq: Status: Active Protocol: Document 02/15/22 11:25 LRN (Rec: 02/15/22 12:15 LRN [id number]) Therapeutic Exercises Supine Exercises Double Hand/knee press Supine Exercise Name Lower TA strengthening Reps/Minutes 10H x 10 Comments Cuing for performing for Lower AB tightening and with [place] ex Single Hand/knee press Supine Exercise Name R rot strengthening Side right Reps/Minutes 10H x 10 Comments R hand/knee press TA head lifts Supine Exercise Name TA head lifts Reps/Minutes 10' Comments noted: see Palpation or Assessment of note. PF/TA/hahaha and light cough Supine Exercise Name PF/TA/hahaha & light cough. Reps/Minutes 12' Outer Hip stretch Supine Exercise Name Outer Hip stretch Side bilateral Reps/Minutes 3' Comments Extra time for determining max tolerated stretch Piriformis stretch Supine Exercise Name Piriformis stretch Side bilateral Reps/Minutes 3' Comments Extra time for determining max tolerated stretch Happy Baby Pose Supine Exercise Name Happy Baby Pose Reps/Minutes 2' Self-Care/Home Management Treatment Education Patient Education Home Exercise Program Activities Self-Care/Home Management Activities I/S pt in TA control w/PF contraction, w/hahaha & w/ light cough 2-3x day 5-10 reps . Issued & reviewed HEP: Hands/ knees push with connor hands and R hand. PT-OP-T Assessment and Plan Start: 12/26/21 13:44 Freq: Status: Active Protocol: Document 02/15/22 11:25 LRN (Rec: 02/15/22 12:15 LRN [id number]) Physical Therapy Assessment Goals Five Impairment Urinary leakage in the presence of a strong urge Short Term Goal (STG) Pt will be educated in urinary delay technique. STG Duration 01/07/22 (01/11/22: MET GOAL) Client Technical Professional Goal (LTG) Pt will be able to maintain urinary continence in the presence of a strong urge. LTG Duration 02/26/22 Four Impairment Decreased PF Quick Flick strength and ability to relax the PF Short Term Goal (STG) Pt will be able to perform 10 reps of Quick Flicks with relaxation between contractions prior to fatigue. STG Duration 01/27/22 Mcfp Goal (LTG) Pt will have decreased complaints of urinary stress incontinent symptoms with a strong urge. LTG Duration 02/26/22 Three Impairment Decreased PF endurance Short Term Goal (STG) Improve PF strength so that pt can contract the PF for 8 secs prior to fatigue and be able to relax the PF after contraction. STG Duration 01/27/22 Client Technical Professional Goal (LTG) Decrease prolapse with improved bladder positioning in supine. LTG Duration 02/26/22 Two Impairment PF pain with palpation Short Term Goal (STG) Pt will be educated in appropriate self stretching of PF (Hip stretch, wand). (01/11/22: HEP: Hip adductors and Piriformis) (01/27/22: HEP: Happy Baby Pose, sup Piriformis stretch, Outer hip/IT band stretch, and Rock Backs, standing hamstring stretch) STG Duration 01/14/22 (01/27/22: Progressed) Mcfp Goal (LTG) Pt has decreased complaints of tenderness of the superficial and deep PF muscles. LTG Duration 02/26/22 One Impairment Pt lacks appropriates self care HEP Short Term Goal (STG) Pt will be educated in proper transfers and body mechanics. STG Duration 01/19/22 (01/18/22: MET GOAL) Client Technical Professional Goal (LTG) Pt will be educated in HEP of PF stretching and strengthening, proper PF care, hip mobility ROM ex's. (01/11/22: HEP: Hip adductors and Piriformis) (01/18/22: HEP: Hamstring/LE neural stretch) (01/27/22: HEP: Happy Baby Pose, sup Piriformis stretch, Outer hip/IT band stretch, and Rock Backs, standing hamstring stretch) (02/15/22: HEP: TA tightening , TA tightening w/haha & light cough) LTG Duration 03/12/22 (02/15/22: Progressed) Progress Towards Goals Progress Comments Progressed HEP Assessment Summary Assessment Trunk R rot is weaker than L rot. DR: ABove umbiolicus 2 to sternum is shallow 1/2 finger,width , 1 shallow 1 finger width, Below umbilicus 1 is shallow 1 finger width, 2 and below is closed. Pt abdomen bulges witth laugh and light cough; therefore further automatic training is needed for TA. Physical Therapy Plan Frequency and Duration Frequency of Treatment 1x/Week Plan of Care Start Date 12/28/21 Plan of Care End Date 03/12/22 Next Visit Focus/Plan Next Note Type Treatment Note Next Visit Plan Recheck for auto TA tightening and recheck hands/knees push ex (double & R side). Strengthen R rot. Hold EStim until free from bladder or UTI. Review daily activity body mechanics & Educate in proper hip hinge for transfers and body mechanics (proper breathing). Manual PF stretching, and educate in urinary leakage with stretching. If no infection, start PF stretching with wand. Without infection consider assessing PF tone with EMG biofeedback. Add HEP: trunk L rotation. Deep breathing for ms relaxation.
--- NOTE | 2022-02-21 13:35 | PT.OTN ---
Current Diagnoses Mixed incontinence (02/21/22) Cystocele, unspecified (02/21/22) Physical Therapy Treatment Note PT-OP-A Visit Information Start: 12/26/21 13:44 Freq: Status: Active Protocol: Document 02/21/22 09:45 LRN (Rec: 02/21/22 10:33 LRN [id number]) Out-Patient Physical Therapy Visit Information Visit Information Visit Type Treatment Note Visit Note 03/20 Visit Start Time 09:45 Visit Stop Time 10:27 Total Visit Minutes 42 Visit Number 7 Evaluation Information Evaluation Date 12/28/21 Precautions Precautions Pt reports she is having follow up of cystoscopy for possible bladder or vaginal cancer. ABdominal and L groin hernia. PT-OP-B Current Condition Start: 12/26/21 13:44 Freq: Status: Active Protocol: Document 12/28/21 10:36 LRN (Rec: 12/28/21 12:47 LRN [id number]) Current Condition History of Current Condition Onset Date 2 months ago Current Complaints urinary leakage that has improved with medicine. History of Current Condition Insidious onset of urinary leakage. From Dr. Adam, OBGYN at , Got Estadial cream for vaginal tissue health, and medication to stop the bladder leakage that has been helpful. L handed. Thyroid disorder. Future Testing and Treatments Planned She thinks she is doing a procedure 01/07/[address] Monahan from urology, to make sure there is no cancer due to microscopic blood in urine. Treatment Goals Patient/Caregiver Goals Pt goal is to strengthen the PF muscles to prevent a surgery. Prior Functional Status Baseline Function- ADL's Independent Baseline Function- Mobility Independent Baseline Function- Other Leakage was daily struggling to get to bathroom and large leakage wetting under and outer clothing. Was leaking once day. Stopped drinking fluids and was leaking 1x/week . Then given medication for leakage and leaked 1x/week with less urine. The urge is less with leakage. Current Functional Impairments (Reported) Functional Limitations- ADL's None. 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 Urge is less with leakage. 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 Pt reports having 5 vaginal births with history of tearing of unknown degree. PT-OP-C Subjective Start: 12/26/21 13:44 Freq: Status: Active Protocol: Document 02/21/22 09:45 LRN (Rec: 02/21/22 10:33 LRN [id number]) OP-PT Subjective Patient Comments Patient Comments Has been drinking a lot of coffee. PT-OP-I Pelvic Floor Start: 12/26/21 13:44 Freq: Status: Active Protocol: Document 12/28/21 10:36 LRN (Rec: 12/28/21 12:47 LRN [id number]) Pelvic Floor Assessment Urine Urinary Symptoms Urge Sensation,Dribbling After Urination,Pain Other Urinary Symptoms Abdominal pain. Leakage Size Medium Leakage Cause Cough,Urge Other Leakage Causes Leaks 1x/week. Nocturia 1x/night Pads Used In 24 Hours 0 Bowel Bowel Symptoms Constipation Other Bowel Symptoms Sometimes constipated Pelvic Clock Pelvic Clock 12-3 Tenderness,Tightness Pelvic Clock 3-6 Tenderness,Tightness Pelvic Clock 6-9 Tenderness,Tightness Pelvic Clock 9-12 Tenderness,Tightness Pelvic Clock Other Transverse perineal ms tightness. Prolapse Cystocele Grade 3 Prolapse Comments Supine: Bladder does not bulge past vaginal opening Perineal Descent Resting Present Bearing Present Contraction Ability Voluntary Relaxation Weak Manual Muscle Testing Left 3 Manual Muscle Testing Right 2 Manual Muscle Testing Anterior 2 Manual Muscle Testing Posterior 3 Muscle Endurance (Seconds) 4 Number of Quick Contractions In 10 4 Seconds Comments Pelvic Floor Comments Mild gapping present at vaginal opening. Volutary relaxation is slow. Volutary contraction is variable around the PF clock and contraction felt present at various times around the PF clock. Posterior PF strength is less in the superficial vs deep PF muscles. PT-OP-J Posture/Palpation/Skin Start: 12/26/21 13:44 Freq: Status: Active Protocol: Document 02/15/22 11:25 LRN (Rec: 02/15/22 12:15 LRN [id number]) Palpation Assessment Location Diastasis Rectus Palpation Location DR with head lifts Palpation Details DR: ABove umbiolicus 2 to sternum is shallow 1/2 finger ,width , 1 shallow 1 finger width, Below umbilicus 1 is shallow 1 finger width, 2 and below is closed. PT-OP-K Range of Motion Start: 12/26/21 13:44 Freq: Status: Active Protocol: Document 12/28/21 10:36 LRN (Rec: 12/28/21 12:47 LRN [id number]) Lumbar Spine Range of Motion Lumbar Spine Active Degrees Testing Position Standing Flexion 105 Extension 10 Rotation Left 20 Rotation Right 30 Lateral Flexion Left 15 Lateral Flexion Right 15 ROM Limitations Soft Tissue Tightness Comments Trunk flexion is with 75 deg's hip flexion Trunk extension is with 5 deg' s hip extension Hip Goniometric Range of Motion Hip Right Passive Testing Position Supine Abduction 45 Internal Rotation 20 External Rotation 65 Comments Hip AB is ~ measurement. Left Passive Testing Position Supine Abduction 40 Internal Rotation 40 External Rotation 50 Comments Hip AB is ~ measurement. PT-OP-M Strength Start: 12/26/21 13:44 Freq: Status: Active Protocol: Document 02/15/22 11:25 LRN (Rec: 02/15/22 12:15 LRN [id number]) Trunk Strength Trunk Manual Muscle Testing Testing Position Sitting Flexion 5 Normal Extension 5 Normal Rotation Left 5 Normal Rotation Right 5 Normal Lateral Flexion Left 4- Good- Lateral Flexion Right 5 Normal Core Stabilization Weak with R rot with MMT of LE 's flex in supine. PT-OP-Q Treatments Start: 12/26/21 13:44 Freq: Status: Active Protocol: Document 02/21/22 09:45 LRN (Rec: 02/21/22 10:33 LRN [id number]) Therapeutic Exercises Supine Exercises TA control with breathing Supine Exercise Name TA tightening and controlling contraction with breathing. Reps/Minutes 12' Double Hand/knee press Supine Exercise Name Lower TA strengthening Reps/Minutes 6' Comments Cuing for performing for Lower AB tightening and with [place] ex Single Hand/knee press Supine Exercise Name R>L rot strengthening Side bilateral Reps/Minutes 6' Comments R hand/knee press Standing Exercises Trunk Rot Standing Exercise Name Trunk Rot Equipment Used Lev 2 - 1 strap Reps/Minutes 10' Comments Much cuing to isolate trunk rot. Trunk rot (Wood chop) Standing Exercise Name Trunk rot strengthening with proper breathing Side bilateral Equipment Used Lev 2 - 1 strap Reps/Minutes 5' Comments cuing for movement and coordination breathing pattern Self-Care/Home Management Treatment Education Other Education Educated in proper hip hinge for transfers and body mechanics (proper breathing). Quick Review of proper body mechanics for daily activities , pt appears to have a good understanding. PT-OP-T Assessment and Plan Start: 12/26/21 13:44 Freq: Status: Active Protocol: Document 02/21/22 09:45 LRN (Rec: 02/21/22 10:33 LRN [id number]) Physical Therapy Assessment Goals Five Impairment Urinary leakage in the presence of a strong urge Short Term Goal (STG) Pt will be educated in urinary delay technique. STG Duration 01/07/22 (01/11/22: MET GOAL) Jail Goal (LTG) Pt will be able to maintain urinary continence in the presence of a strong urge. LTG Duration 02/26/22 Four Impairment Decreased PF Quick Flick strength and ability to relax the PF Short Term Goal (STG) Pt will be able to perform 10 reps of Quick Flicks with relaxation between contractions prior to fatigue. STG Duration 01/27/22 Jail Goal (LTG) Pt will have decreased complaints of urinary stress incontinent symptoms with a strong urge. LTG Duration 02/26/22 Three Impairment Decreased PF endurance Short Term Goal (STG) Improve PF strength so that pt can contract the PF for 8 secs prior to fatigue and be able to relax the PF after contraction. STG Duration 01/27/22 Jail Goal (LTG) Decrease prolapse with improved bladder positioning in supine. LTG Duration 02/26/22 Two Impairment PF pain with palpation Short Term Goal (STG) Pt will be educated in appropriate self stretching of PF (Hip stretch, wand). (01/11/22: HEP: Hip adductors and Piriformis) (01/27/22: HEP: Happy Baby Pose, sup Piriformis stretch, Outer hip/IT band stretch, and Rock Backs, standing hamstring stretch) STG Duration 01/14/22 (01/27/22: Progressed) Jail Goal (LTG) Pt has decreased complaints of tenderness of the superficial and deep PF muscles. LTG Duration 02/26/22 One Impairment Pt lacks appropriates self care HEP Short Term Goal (STG) Pt will be educated in proper transfers and body mechanics. STG Duration 01/19/22 (01/18/22: MET GOAL) Jail Goal (LTG) Pt will be educated in HEP of PF stretching and strengthening, proper PF care, hip mobility ROM ex's. (01/11/22: HEP: Hip adductors and Piriformis) (01/18/22: HEP: Hamstring/LE neural stretch) (01/27/22: HEP: Happy Baby Pose, sup Piriformis stretch, Outer hip/IT band stretch, and Rock Backs, standing hamstring stretch) (02/15/22: HEP: TA tightening , TA tightening w/haha & light cough) LTG Duration 03/12/22 (02/15/22: Progressed) Assessment Summary Assessment Initial PF tightness with pain , contributing to her urinary incontinence. She has good PF strength, but her ability to hold a contraction is inconsistent for Quick Flicks and Long Holds. Pt has not used wand, was waiting to be shown, but forgot to bring today. Pt shows improved control of TA with auto laughing, it appears she has less bulging of abdomen with laughter. Pt did not recall trunk rot hands/knees push; therefore review was needed. Pt had poor recall of hands/ knees push ex; therefore needed review. Pt had much difficulty contraction trunk rotators, and in standing uses shoulders and hips to rotate. In supine, improved control of TA tightening (lower ab engagement) with use of mirror for visual feedback. Further training needed. Physical Therapy Plan Frequency and Duration Frequency of Treatment 1x/Week Plan of Care Start Date 12/28/21 Plan of Care End Date 03/12/22 Next Visit Focus/Plan Next Note Type Treatment Note Next Visit Plan Check HEP PSLR. Assess for Hip assymetry with mobility & TA tightening in supine if mirror used at home. Check hip ER strength. Monitor for auto TA tightening. Educate pt in use of wand if brought. Strengthen R trunk rot and L hip ER (if weak). Manual PF stretching, and educate in urinary leakage with stretching. Hold EStim until free from bladder or UTI. If no infection, start PF stretching with wand. Without infection consider assessing PF tone with EMG biofeedback. Add HEP: trunk L rotation. Deep breathing for ms relaxation. POC: Relax PF, improve hip mobility and strength symmetry , improve core stability, education in proper PF care, body mechanics, breathing, bowel management if needed and HEP. _[id number]
--- NOTE | 2022-03-01 17:36 | PT.OTN ---
Current Diagnoses Mixed incontinence (03/01/22) Cystocele, unspecified (03/01/22) Physical Therapy Treatment Note PT-OP-A Visit Information Start: 12/26/21 13:44 Freq: Status: Active Protocol: Document 03/01/22 13:53 LRN (Rec: 03/01/22 14:38 LRN [id number]) Out-Patient Physical Therapy Visit Information Visit Information Visit Type Progress Note Visit Start Time 13:53 Visit Stop Time 14:31 Total Visit Minutes 38 Visit Number 7 Evaluation Information Evaluation Date 12/28/21 Precautions Precautions Pt reports she is having follow up of cystoscopy for possible bladder or vaginal cancer. ABdominal and L groin hernia. PT-OP-B Current Condition Start: 12/26/21 13:44 Freq: Status: Active Protocol: Document 12/28/21 10:36 LRN (Rec: 12/28/21 12:47 LRN [id number]) Current Condition History of Current Condition Onset Date 2 months ago Current Complaints urinary leakage that has improved with medicine. History of Current Condition Insidious onset of urinary leakage. From Dr. Adam OBGYN at , Got Estadial cream for vaginal tissue health, and medication to stop the bladder leakage that has been helpful. L handed. Thyroid disorder. Future Testing and Treatments Planned She thinks she is doing a procedure 01/07/[address] Monahan from urology, to make sure there is no cancer due to microscopic blood in urine. Treatment Goals Patient/Caregiver Goals Pt goal is to strengthen the PF muscles to prevent a surgery. Prior Functional Status Baseline Function- ADL's Independent Baseline Function- Mobility Independent Baseline Function- Other Leakage was daily struggling to get to bathroom and large leakage wetting under and outer clothing. Was leaking once day. Stopped drinking fluids and was leaking 1x/week . Then given medication for leakage and leaked 1x/week with less urine. The urge is less with leakage. Current Functional Impairments (Reported) Functional Limitations- ADL's None. 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 Urge is less with leakage. 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 Pt reports having 5 vaginal births with history of tearing of unknown degree. PT-OP-C Subjective Start: 12/26/21 13:44 Freq: Status: Active Protocol: Document 03/01/22 13:53 LRN (Rec: 03/01/22 14:38 LRN [id number]) OP-PT Subjective Patient Comments Patient Comments Having a stressful day. Forgot the wand. Seeing referring MD. PT-OP-I Pelvic Floor Start: 12/26/21 13:44 Freq: Status: Active Protocol: Document 03/01/22 13:53 LRN (Rec: 03/01/22 14:38 LRN [id number]) Pelvic Floor Assessment Pelvic Clock Pelvic Clock Other 5 O'Clock: Weak PF contraction. Needs Glut sqeeze to palpate a contraction. Improved contraction after stretching. Prolapse Cystocele Grade 3 Perineal Descent Bearing Present Contraction Ability Voluntary Contraction Moderate Voluntary Relaxation Weak Manual Muscle Testing Left 2 Manual Muscle Testing Right 3 Manual Muscle Testing Anterior 3 Manual Muscle Testing Posterior 3 Muscle Endurance (Seconds) 10 PT-OP-J Posture/Palpation/Skin Start: 12/26/21 13:44 Freq: Status: Active Protocol: Document 02/15/22 11:25 LRN (Rec: 02/15/22 12:15 LRN [id number]) Palpation Assessment Location Diastasis Rectus Palpation Location DR with head lifts Palpation Details DR: ABove umbiolicus 2 to sternum is shallow 1/2 finger ,width , 1 shallow 1 finger width, Below umbilicus 1 is shallow 1 finger width, 2 and below is closed. PT-OP-K Range of Motion Start: 12/26/21 13:44 Freq: Status: Active Protocol: Document 03/01/22 13:53 LRN (Rec: 03/01/22 14:38 LRN [id number]) Hip Goniometric Range of Motion Hip Right Passive Testing Position Supine Straight Leg Raise 85 Internal Rotation 30 External Rotation 65 Left Passive Testing Position Supine Straight Leg Raise 85 Internal Rotation 45 External Rotation 65 PT-OP-M Strength Start: 12/26/21 13:44 Freq: Status: Active Protocol: Document 03/01/22 13:53 LRN (Rec: 03/01/22 17:35 LRN [id number]) Hip Strength Hip Manual Muscle Testing Right External Rotation 5 Normal Internal Rotation 5 Normal Left External Rotation 5 Normal Internal Rotation 5 Normal PT-OP-Q Treatments Start: 12/26/21 13:44 Freq: Status: Active Protocol: Document 03/01/22 13:53 LRN (Rec: 03/01/22 14:38 LRN [id number]) Therapeutic Exercises Supine Exercises PF contractions Supine Exercise Name PF contractions around the clock. Reps/Minutes 10' Comments PF strength and prolapse assesed PF/TA/hahaha and light cough Supine Exercise Name PF/TA/Light cough Reps/Minutes 1' Piriformis stretch Supine Exercise Name Piriformis stretch (R tighter than L) Side bilateral Reps/Minutes 6' Extra stretch on R side Comments Extra time for determining max tolerated stretch Happy Baby Pose Supine Exercise Name Happy Baby Pose Reps/Minutes 2' Hamstring/LE neural stretch Supine Exercise Name Hamstring/LE neural stretch Side bilateral Reps/Minutes 6' Comments Extra time for review. Sitting Exercises Trunk rot strengthening Sitting Exercise Name Trunk rot strengthening Side left Reps/Minutes 10x w/breath Standing Exercises Trunk Rot Standing Exercise Name Sitting trunk rot, focus to left. Side bilateral Reps/Minutes 4' Manual Therapy Treatment Soft Tissue Mobilization PF Body Location 5 O'Clock of the PF clock Mobilization Type Sustained Pressure Body Position Hooklying Comments Gentle MFR stretching. Better PF contraction felt after stretching. Palpation of PF around the clock PT-OP-T Assessment and Plan Start: 12/26/21 13:44 Freq: Status: Active Protocol: Document 03/01/22 13:53 LRN (Rec: 03/01/22 14:38 LRN [id number]) Physical Therapy Assessment Rehab Potential Rehabilitation Potential Good Evaluation Complexity Number of Personal Factors/Comorbidities 3 or More Number of Body Systems Impaired 3 Clinical Presentation at Evaluation Evolving Impairments Impairments ROM,Soft Tissue Mobility, Strength Other Impairments Urinary leakage in presence of a strong urge controlled PF contraction/and medication. Occasional constipation. Goals Five Impairment Urinary leakage in the presence of a strong urge Short Term Goal (STG) Pt will be educated in urinary delay technique. STG Duration 01/07/22 (01/11/22: MET GOAL) Usp Goal (LTG) Pt will be able to maintain urinary continence in the presence of a strong urge. (03/01/22: 1x thought she might leak, but didn't. Used breathing to relax) LTG Duration 02/26/22 (03/01/22: Progressing) Four Impairment Decreased PF Quick Flick strength and ability to relax the PF Short Term Goal (STG) Pt will be able to perform 10 reps of Quick Flicks with relaxation between contractions prior to fatigue. (03/01/22: Pt able to perform 10 quick flick PF contractions wtih relaxation felt between contractions) STG Duration 01/27/22 (03/01/22: GOAL MET) Usp Goal (LTG) Pt will have decreased complaints of urinary stress incontinent symptoms with a strong urge. LTG Duration 02/26/22 (03/01/22: Progressing) Three Impairment Decreased PF endurance Short Term Goal (STG) Improve PF strength so that pt can contract the PF for 8 secs prior to fatigue and be able to relax the PF after contraction. (03/01/22: Pt is able to hold PF contraction 10 secs without fatigue. She is able to relax the PF after contraction partially with palpable relaxation noted) STG Duration 01/27/22 (03/01/22: GOAL MET) Usp Goal (LTG) Decrease prolapse with improved bladder positioning in supine. (03/01/22: Grade 3 Cystocele) LTG Duration 02/26/22 Two Impairment PF pain with palpation Short Term Goal (STG) Pt will be educated in appropriate self stretching of PF (Hip stretch, wand). (01/11/22: HEP: Hip adductors and Piriformis) (01/27/22: HEP: Happy Baby Pose, sup Piriformis stretch, Outer hip/IT band stretch, and Rock Backs, standing hamstring stretch) STG Duration 01/14/22 (01/27/22: Progressed) Usp Goal (LTG) Pt has decreased complaints of tenderness of the superficial and deep PF muscles. LTG Duration 02/26/22 (03/01/22: MET GOAL) One Impairment Pt lacks appropriates self care HEP Short Term Goal (STG) Pt will be educated in proper transfers and body mechanics. STG Duration 01/19/22 (01/18/22: MET GOAL) Usp Goal (LTG) Pt will be educated in HEP of PF stretching and strengthening, proper PF care, hip mobility ROM ex's. (01/11/22: HEP: Hip adductors and Piriformis) (01/18/22: HEP: Hamstring/LE neural stretch) (01/27/22: HEP: Happy Baby Pose, sup Piriformis stretch, Outer hip/IT band stretch, and Rock Backs, standing hamstring stretch) (02/15/22: HEP: TA tightening , TA tightening w/haha & light cough) LTG Duration 03/12/22 (02/15/22: Progressed) Assessment Summary Assessment Pt has progressed well with physical therapy. She is able to maintain continence in the presence of a strong urge and use of her medications. Per palpation the pt appears to be able to hold a 10 sec PF contraction and is able to perform 10 quick contractions prior to fatigue. Pt no longer appears to have tenderness of her PF, probably with stretching associated to her hip stretching. She did not used the wand for stretching because she was waiting to be shown, but kept forgetting to bring it back to therapy. PSLR was equal after hamstring stretching (~ 85 deg's); therefore she should now stretch bilaterally . R hip IR is tighter than the L, but ER mobility is equal. Hip ER/IR strength is 5/5 bilaterally. The pt would benefit from continued skilled physical therapy to improve her confidence in maintaining continence in the presence of a strong urge and for further PF/core strengthening to minimize drop and maximize support to her bladder. Physical Therapy Plan Frequency and Duration Frequency of Treatment 1x/Week Plan of Care Start Date 03/01/22 Plan of Care End Date 04/30/22 Therapeutic Interventions Therapeutic Interventions Home Exercise Program,Joint Mobilizations,Manual Therapy, Neuromuscular Re-education, Patient/Caregiver Education, Self-Care/Home Management,Soft Tissue Mobilization, Therapeutic Activities, Therapeutic Exercises Modalities Biofeedback,Cold Pack/Ice Massage,Electric Stimulation, Hot Packs Next Visit Focus/Plan Next Note Type Treatment Note Next Visit Plan Continue with Assess for Hip assymetry with mobility & TA tightening in supine if mirror used at home. Review trunk L rot strengthening and TB resistance for HEP. Monitor for auto TA tightening. Strengthen R trunk rot and L hip ER (if weak). Manual PF stretching, and educate in urinary leakage with stretching. Hold EStim until free from bladder or UTI. Without infection consider assessing PF tone with EMG biofeedback. Add HEP: Deep breathing for ms relaxation. POC: Improve hip mobility and strength symmetry, improve core stability, body mechanics , proper coordinated breathing , bowel management if needed and HEP.
--- NOTE | 2022-03-01 17:37 | PT.OPPOC ---
Physical, Occupational & Speech Therapy At [facility] Current Diagnoses Mixed incontinence (03/01/22) Cystocele, unspecified (03/01/22) Visit Care Team Role Provider Type Thee Arreola MD Family Provider Physician Primary Care Provider Specialty: Family Practice Address: [address] [place] [address], [id number] Email: [email or web address] Lamine Adam MD Attending Provider Physician Referring Provider Specialty: DIRECTOR OF EVENTS Address: [address] [place] [address], [address] [place] [address], [id number] Email: [email or web address] Plan Of Care PT-OP-T Assessment and Plan Start: 12/26/21 13:44 Freq: Status: Active Protocol: Document 03/01/22 13:53 LRN (Rec: 03/01/22 14:38 LRN [id number]) Physical Therapy Assessment Rehab Potential Rehabilitation Potential Good Evaluation Complexity Number of Personal Factors/Comorbidities 3 or More Number of Body Systems Impaired 3 Clinical Presentation at Evaluation Evolving Impairments Impairments ROM,Soft Tissue Mobility, Strength Other Impairments Urinary leakage in presence of a strong urge controlled PF contraction/and medication. Occasional constipation. Goals Five Impairment Urinary leakage in the presence of a strong urge Short Term Goal (STG) Pt will be educated in urinary delay technique. STG Duration 01/07/22 (01/11/22: MET GOAL) Valet Attendant Goal (LTG) Pt will be able to maintain urinary continence in the presence of a strong urge. (03/01/22: 1x thought she might leak, but didn't. Used breathing to relax) LTG Duration 02/26/22 (03/01/22: Progressing) Four Impairment Decreased PF Quick Flick strength and ability to relax the PF Short Term Goal (STG) Pt will be able to perform 10 reps of Quick Flicks with relaxation between contractions prior to fatigue. (03/01/22: Pt able to perform 10 quick flick PF contractions wtih relaxation felt between contractions) STG Duration 01/27/22 (03/01/22: GOAL MET) Valet Attendant Goal (LTG) Pt will have decreased complaints of urinary stress incontinent symptoms with a strong urge. LTG Duration 02/26/22 (03/01/22: Progressing) Three Impairment Decreased PF endurance Short Term Goal (STG) Improve PF strength so that pt can contract the PF for 8 secs prior to fatigue and be able to relax the PF after contraction. (03/01/22: Pt is able to hold PF contraction 10 secs without fatigue. She is able to relax the PF after contraction partially with palpable relaxation noted) STG Duration 01/27/22 (03/01/22: GOAL MET) Shelter Goal (LTG) Decrease prolapse with improved bladder positioning in supine. (03/01/22: Grade 3 Cystocele) LTG Duration 02/26/22 Two Impairment PF pain with palpation Short Term Goal (STG) Pt will be educated in appropriate self stretching of PF (Hip stretch, wand). (01/11/22: HEP: Hip adductors and Piriformis) (01/27/22: HEP: Happy Baby Pose, sup Piriformis stretch, Outer hip/IT band stretch, and Rock Backs, standing hamstring stretch) STG Duration 01/14/22 (01/27/22: Progressed) Shelter Goal (LTG) Pt has decreased complaints of tenderness of the superficial and deep PF muscles. LTG Duration 02/26/22 (03/01/22: MET GOAL) One Impairment Pt lacks appropriates self care HEP Short Term Goal (STG) Pt will be educated in proper transfers and body mechanics. STG Duration 01/19/22 (01/18/22: MET GOAL) Valet Attendant Goal (LTG) Pt will be educated in HEP of PF stretching and strengthening, proper PF care, hip mobility ROM ex's. (01/11/22: HEP: Hip adductors and Piriformis) (01/18/22: HEP: Hamstring/LE neural stretch) (01/27/22: HEP: Happy Baby Pose, sup Piriformis stretch, Outer hip/IT band stretch, and Rock Backs, standing hamstring stretch) (02/15/22: HEP: TA tightening , TA tightening w/haha & light cough) LTG Duration 03/12/22 (02/15/22: Progressed) Assessment Summary Assessment Pt has progressed well with physical therapy. She is able to maintain continence in the presence of a strong urge and use of her medications. Per palpation the pt appears to be able to hold a 10 sec PF contraction and is able to perform 10 quick contractions prior to fatigue. Pt no longer appears to have tenderness of her PF, probably with stretching associated to her hip stretching. She did not used the wand for stretching because she was waiting to be shown, but kept forgetting to bring it back to therapy. PSLR was equal after hamstring stretching (~ 85 deg's); therefore she should now stretch bilaterally . R hip IR is tighter than the L, but ER mobility is equal. Hip ER/IR strength is 5/5 bilaterally. The pt would benefit from continued skilled physical therapy to improve her confidence in maintaining continence in the presence of a strong urge and for further PF/core strengthening to minimize drop and maximize support to her bladder. Physical Therapy Plan Frequency and Duration Frequency of Treatment 1x/Week Plan of Care Start Date 03/01/22 Plan of Care End Date 04/30/22 Therapeutic Interventions Therapeutic Interventions Home Exercise Program,Joint Mobilizations,Manual Therapy, Neuromuscular Re-education, Patient/Caregiver Education, Self-Care/Home Management,Soft Tissue Mobilization, Therapeutic Activities, Therapeutic Exercises Modalities Biofeedback,Cold Pack/Ice Massage,Electric Stimulation, Hot Packs Next Visit Focus/Plan Next Note Type Treatment Note Next Visit Plan Continue with Assess for Hip assymetry with mobility & TA tightening in supine if mirror used at home. Review trunk L rot strengthening and TB resistance for HEP. Monitor for auto TA tightening. Strengthen R trunk rot and L hip ER (if weak). Manual PF stretching, and educate in urinary leakage with stretching. Hold EStim until free from bladder or UTI. Without infection consider assessing PF tone with EMG biofeedback. Add HEP: Deep breathing for ms relaxation. POC: Improve hip mobility and strength symmetry, improve core stability, body mechanics , proper coordinated breathing , bowel management if needed and HEP. Plan of Care Dates Plan of Care Start Date 03/01/22 Plan of Care End Date 04/30/22 Electronically Signed by: Riddhi Spence, PT 03/01/22 0694 If you are in agreement with this Plan of Care, please return a signed and dated copy. I have reviewed this Plan of Care and certify that the skilled therapy services above are required to meet the patient?s needs. Physician Signature Date Printed Name and Credentials Clinical Instructor Signature Printed Name and Credentials
--- NOTE | 2022-03-11 16:55 | PT.OTN ---
Current Diagnoses Mixed incontinence (03/11/22) Cystocele, unspecified (03/11/22) Physical Therapy Treatment Note PT-OP-A Visit Information Start: 12/26/21 13:44 Freq: Status: Active Protocol: Document 03/11/22 14:38 LRN (Rec: 03/11/22 15:21 LRN [id number]) Out-Patient Physical Therapy Visit Information Visit Information Visit Type Treatment Note Visit Start Time 14:38 Visit Stop Time 15:16 Total Visit Minutes 42 Visit Number 8 Evaluation Information Evaluation Date 12/28/21 Precautions Precautions Pt reports she is having follow up of cystoscopy for possible bladder or vaginal cancer. ABdominal and L groin hernia. PT-OP-B Current Condition Start: 12/26/21 13:44 Freq: Status: Active Protocol: Document 12/28/21 10:36 LRN (Rec: 12/28/21 12:47 LRN [id number]) Current Condition History of Current Condition Onset Date 2 months ago Current Complaints urinary leakage that has improved with medicine. History of Current Condition Insidious onset of urinary leakage. From Dr. Adam OBGYN at , Got Estadial cream for vaginal tissue health, and medication to stop the bladder leakage that has been helpful. L handed. Thyroid disorder. Future Testing and Treatments Planned She thinks she is doing a procedure 01/07/[address] Monahan from urology, to make sure there is no cancer due to microscopic blood in urine. Treatment Goals Patient/Caregiver Goals Pt goal is to strengthen the PF muscles to prevent a surgery. Prior Functional Status Baseline Function- ADL's Independent Baseline Function- Mobility Independent Baseline Function- Other Leakage was daily struggling to get to bathroom and large leakage wetting under and outer clothing. Was leaking once day. Stopped drinking fluids and was leaking 1x/week . Then given medication for leakage and leaked 1x/week with less urine. The urge is less with leakage. Current Functional Impairments (Reported) Functional Limitations- ADL's None. 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 Urge is less with leakage. 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 Pt reports having 5 vaginal births with history of tearing of unknown degree. PT-OP-C Subjective Start: 12/26/21 13:44 Freq: Status: Active Protocol: Document 03/11/22 14:38 LRN (Rec: 03/11/22 15:21 LRN [id number]) OP-PT Subjective Patient Comments Patient Comments Just saw OBGyn and was told NO UTI although she felt like she had a UTI (urine smelled bad). Sending her to urologist because she had blood in her urine. Dr. Lamine Adam told her to continue use of medication for the urinary leakage; therefore having no leakage. PT-OP-I Pelvic Floor Start: 12/26/21 13:44 Freq: Status: Active Protocol: Document 03/01/22 13:53 LRN (Rec: 03/01/22 14:38 LRN [id number]) Pelvic Floor Assessment Pelvic Clock Pelvic Clock Other 5 O'Clock: Weak PF contraction. Needs Glut sqeeze to palpate a contraction. Improved contraction after stretching. Prolapse Cystocele Grade 3 Perineal Descent Bearing Present Contraction Ability Voluntary Contraction Moderate Voluntary Relaxation Weak Manual Muscle Testing Left 2 Manual Muscle Testing Right 3 Manual Muscle Testing Anterior 3 Manual Muscle Testing Posterior 3 Muscle Endurance (Seconds) 10 PT-OP-J Posture/Palpation/Skin Start: 12/26/21 13:44 Freq: Status: Active Protocol: Document 03/11/22 14:38 LRN (Rec: 03/11/22 15:21 LRN [id number]) Palpation Assessment Location Abdomen Palpation Location ABdominal mobility Palpation Details Good abdominal mobility Diastasis Rectus Palpation Location DR with head lifts Palpation Details DR: Above umbilicus 2 to sternum is shallow 1/2 finger ,width , 1 shallow 1 finger width, Below umbilicus 1 is shallow 1.5 finger width, 2 is 1 finger width, and 3 below is closed. PT-OP-K Range of Motion Start: 12/26/21 13:44 Freq: Status: Active Protocol: Document 03/11/22 14:38 LRN (Rec: 03/11/22 15:21 LRN [id number]) Hip Goniometric Range of Motion Hip Right Passive Internal Rotation 25 External Rotation 55 Left Passive Testing Position Supine Internal Rotation 50 External Rotation 50 PT-OP-M Strength Start: 12/26/21 13:44 Freq: Status: Active Protocol: Document 03/01/22 13:53 LRN (Rec: 03/01/22 17:35 LRN [id number]) Hip Strength Hip Manual Muscle Testing Right External Rotation 5 Normal Internal Rotation 5 Normal Left External Rotation 5 Normal Internal Rotation 5 Normal PT-OP-Q Treatments Start: 12/26/21 13:44 Freq: Status: Active Protocol: Document 03/11/22 14:38 LRN (Rec: 03/11/22 15:21 LRN [id number]) Therapeutic Exercises Supine Exercises Outer Hip stretch Supine Exercise Name Outer Hip stretch Side bilateral Reps/Minutes 3' Comments Extra time for determining max tolerated stretch Piriformis stretch Supine Exercise Name Piriformis stretch (R tighter than L) Side bilateral Reps/Minutes 6' Extra stretch on R side Comments Extra time for determining max tolerated stretch Happy Baby Pose Supine Exercise Name Happy Baby Pose Reps/Minutes 2' Sitting Exercises PF/TA/STS Sitting Exercise Name PF/TA/Sit<>Stand Reps/Minutes 10 SH x 5 Comments Pt slow to move and count Manual Therapy Treatment Soft Tissue Mobilization Balancing of Sacrum Body Location Pelvic ms Mobilization Type Sustained Pressure Intensity/Depth Moderate Body Position Prone Comments Balanced sacrum and innominates. PT-OP-T Assessment and Plan Start: 12/26/21 13:44 Freq: Status: Active Protocol: Document 03/11/22 14:38 LRN (Rec: 03/11/22 15:21 LRN [id number]) Physical Therapy Assessment Goals Five Impairment Urinary leakage in the presence of a strong urge Short Term Goal (STG) Pt will be educated in urinary delay technique. STG Duration 01/07/22 (01/11/22: MET GOAL) Welfare Service Aide Goal (LTG) Pt will be able to maintain urinary continence in the presence of a strong urge. (03/01/22: 1x thought she might leak, but didn't. Used breathing to relax) LTG Duration 02/26/22 (03/01/22: Progressing) Four Impairment Decreased PF Quick Flick strength and ability to relax the PF Short Term Goal (STG) Pt will be able to perform 10 reps of Quick Flicks with relaxation between contractions prior to fatigue. (03/01/22: Pt able to perform 10 quick flick PF contractions wtih relaxation felt between contractions) STG Duration 01/27/22 (03/01/22: GOAL MET) Welfare Service Aide Goal (LTG) Pt will have decreased complaints of urinary stress incontinent symptoms with a strong urge. LTG Duration 02/26/22 (03/01/22: Progressing) Three Impairment Decreased PF endurance Short Term Goal (STG) Improve PF strength so that pt can contract the PF for 8 secs prior to fatigue and be able to relax the PF after contraction. (03/01/22: Pt is able to hold PF contraction 10 secs without fatigue. She is able to relax the PF after contraction partially with palpable relaxation noted) STG Duration 01/27/22 (03/01/22: GOAL MET) Retirement Goal (LTG) Decrease prolapse with improved bladder positioning in supine. (03/01/22: Grade 3 Cystocele) LTG Duration 02/26/22 Two Impairment PF pain with palpation Short Term Goal (STG) Pt will be educated in appropriate self stretching of PF (Hip stretch, wand). (01/11/22: HEP: Hip adductors and Piriformis) (01/27/22: HEP: Happy Baby Pose, sup Piriformis stretch, Outer hip/IT band stretch, and Rock Backs, standing hamstring stretch) STG Duration 01/14/22 (01/27/22: Progressed) Welfare Service Aide Goal (LTG) Pt has decreased complaints of tenderness of the superficial and deep PF muscles. LTG Duration 02/26/22 (03/01/22: MET GOAL) One Impairment Pt lacks appropriates self care HEP Short Term Goal (STG) Pt will be educated in proper transfers and body mechanics. STG Duration 01/19/22 (01/18/22: MET GOAL) Welfare Service Aide Goal (LTG) Pt will be educated in HEP of PF stretching and strengthening, proper PF care, hip mobility ROM ex's. (01/11/22: HEP: Hip adductors and Piriformis) (01/18/22: HEP: Hamstring/LE neural stretch) (01/27/22: HEP: Happy Baby Pose, sup Piriformis stretch, Outer hip/IT band stretch, and Rock Backs, standing hamstring stretch) (02/15/22: HEP: TA tightening , TA tightening w/haha & light cough) LTG Duration 03/12/22 (02/15/22: Progressed) Assessment Summary Assessment Pt feeling level in leg length after manual therapy. L side was restricted in mobility to start. After hip stretches, the R hip IR continues to be tighter than L hip. ER is almost symetrical with R 55 deg's, L 50 deg's. Pt R hip painful with lifting of leg. Pt tends to stand on LLE due to R hip pain. Physical Therapy Plan Frequency and Duration Frequency of Treatment 1x/Week Plan of Care Start Date 03/01/22 Plan of Care End Date 04/30/22 Next Visit Focus/Plan Next Note Type Treatment Note Next Visit Plan Monitor R Hip IR>ER assymetry with mobility (add yoga hip ER stretch) & TA tightening in supine. Monitor for auto TA tightening. Review trunk L rot strengthening and TB resistance for HEP. Strengthen R trunk rot and L hip ER (if weak). Add HEP: Deep breathing for ms relaxation. Manual PF stretching, and educate in urinary leakage with stretching. Hold EStim until free from bladder or UTI. Without infection consider assessing PF tone with EMG biofeedback. POC: Improve hip mobility and strength symmetry, improve core stability, body mechanics , proper coordinated breathing , bowel management if needed and HEP.
--- NOTE | 2022-03-17 18:06 | PT.OTN ---
Current Diagnoses Mixed incontinence (03/17/22) Cystocele, unspecified (03/17/22) Physical Therapy Treatment Note PT-OP-A Visit Information Start: 12/26/21 13:44 Freq: Status: Active Protocol: Document 03/17/22 10:36 LRN (Rec: 03/17/22 11:19 LRN [id number]) Out-Patient Physical Therapy Visit Information Visit Information Visit Type Treatment Note Visit Start Time 10:36 Visit Stop Time 11:16 Total Visit Minutes 40 Visit Number 9 PT-OP-B Current Condition Start: 12/26/21 13:44 Freq: Status: Active Protocol: Document 12/28/21 10:36 LRN (Rec: 12/28/21 12:47 LRN [id number]) Current Condition History of Current Condition Onset Date 2 months ago Current Complaints urinary leakage that has improved with medicine. History of Current Condition Insidious onset of urinary leakage. From Dr. Adam, OBGYN at , Got Estadial cream for vaginal tissue health, and medication to stop the bladder leakage that has been helpful. L handed. Thyroid disorder. Future Testing and Treatments Planned She thinks she is doing a procedure 01/07/[address] Monahan from urology, to make sure there is no cancer due to microscopic blood in urine. Treatment Goals Patient/Caregiver Goals Pt goal is to strengthen the PF muscles to prevent a surgery. Prior Functional Status Baseline Function- ADL's Independent Baseline Function- Mobility Independent Baseline Function- Other Leakage was daily struggling to get to bathroom and large leakage wetting under and outer clothing. Was leaking once day. Stopped drinking fluids and was leaking 1x/week . Then given medication for leakage and leaked 1x/week with less urine. The urge is less with leakage. Current Functional Impairments (Reported) Functional Limitations- ADL's None. 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 Urge is less with leakage. 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 Pt reports having 5 vaginal births with history of tearing of unknown degree. PT-OP-C Subjective Start: 12/26/21 13:44 Freq: Status: Active Protocol: Document 03/17/22 10:36 LRN (Rec: 03/17/22 11:19 LRN [id number]) OP-PT Subjective Patient Comments Patient Comments No Urinary Leakage as long concentrates. States the L knee is not as painful since she has been trying to be more cautious going down stairs. States able to maintain continence in the presence of a strong urge. Back has been good. PT-OP-I Pelvic Floor Start: 12/26/21 13:44 Freq: Status: Active Protocol: Document 03/17/22 10:36 LRN (Rec: 03/17/22 18:06 LRN [id number]) Pelvic Floor Assessment Pelvic Clock Pelvic Clock 3-6 Tightness Prolapse Cystocele Grade 2 Contraction Ability Manual Muscle Testing Left 3 Manual Muscle Testing Right 3 Manual Muscle Testing Anterior 3 Manual Muscle Testing Posterior 3 Muscle Endurance (Seconds) 4 Number of Quick Contractions In 10 5 Seconds Comments Pelvic Floor Comments Tightness at PF 3-6 O'Clock PT-OP-J Posture/Palpation/Skin Start: 12/26/21 13:44 Freq: Status: Active Protocol: Document 03/11/22 14:38 LRN (Rec: 03/11/22 15:21 LRN [id number]) Palpation Assessment Location Abdomen Palpation Location ABdominal mobility Palpation Details Good abdominal mobility Diastasis Rectus Palpation Location DR with head lifts Palpation Details DR: Above umbilicus 2 to sternum is shallow 1/2 finger ,width , 1 shallow 1 finger width, Below umbilicus 1 is shallow 1.5 finger width, 2 is 1 finger width, and 3 below is closed. PT-OP-K Range of Motion Start: 12/26/21 13:44 Freq: Status: Active Protocol: Document 03/17/22 10:36 LRN (Rec: 03/17/22 11:19 LRN [id number]) Hip Goniometric Range of Motion Hip Right Passive Testing Position Supine Internal Rotation 30 External Rotation 55 Left Passive Testing Position Supine Internal Rotation 50 External Rotation 55 PT-OP-M Strength Start: 12/26/21 13:44 Freq: Status: Active Protocol: Document 03/01/22 13:53 LRN (Rec: 03/01/22 17:35 LRN [id number]) Hip Strength Hip Manual Muscle Testing Right External Rotation 5 Normal Internal Rotation 5 Normal Left External Rotation 5 Normal Internal Rotation 5 Normal PT-OP-Q Treatments Start: 12/26/21 13:44 Freq: Status: Active Protocol: Document 03/17/22 10:36 LRN (Rec: 03/17/22 11:19 LRN [id number]) Therapeutic Exercises Supine Exercises PF contractions Supine Exercise Name PF contractions long hold & quick flicks Comments MMT Double Hand/knee press Supine Exercise Name Lower TA strengthening Reps/Minutes 6' Comments Cuing for performing for Lower AB tightening and with [place]aha ex Single Hand/knee press Supine Exercise Name R>L rot strengthening Side bilateral Reps/Minutes 6' Comments R hand/knee press Happy Baby Pose Supine Exercise Name Happy Baby Pose Reps/Minutes 2' Hamstring/LE neural stretch Supine Exercise Name Hamstring/LE neural stretch Side bilateral Reps/Minutes 6' Comments Extra time for review. Sitting Exercises Piriformis stretch Sitting Exercise Name 2 positions: Leg on plinth in ER & sitting knee to opposite shoulder Side bilateral Reps/Minutes 2x each Comments Extra time to review best position for max tolerated stretch Hip Adductors stretch Sitting Exercise Name One leg up on plinth for Hip AD stretch Side left Reps/Minutes 1' x 2 each Comments Extra time to determine best position for max tolerated stretch PT-OP-T Assessment and Plan Start: 12/26/21 13:44 Freq: Status: Active Protocol: Document 03/17/22 10:36 LRN (Rec: 03/17/22 11:19 LRN [id number]) Physical Therapy Assessment Goals Five Impairment Urinary leakage in the presence of a strong urge Short Term Goal (STG) Pt will be educated in urinary delay technique. STG Duration 01/07/22 (01/11/22: MET GOAL) Detention Goal (LTG) Pt will be able to maintain urinary continence in the presence of a strong urge. (03/01/22: 1x thought she might leak, but didn't. Used breathing to relax) (03/17/22: Pt note no leakage) LTG Duration 02/26/22 (03/17/22: MET GOAL) Four Impairment Decreased PF Quick Flick strength and ability to relax the PF Short Term Goal (STG) Pt will be able to perform 10 reps of Quick Flicks with relaxation between contractions prior to fatigue. (03/01/22: Pt able to perform 10 quick flick PF contractions wtih relaxation felt between contractions) STG Duration 01/27/22 (03/01/22: MET GOAL) Detention Goal (LTG) Pt will have decreased complaints of urinary stress incontinent symptoms with a strong urge. LTG Duration 02/26/22 (03/17/22: MET GOAL) Three Impairment Decreased PF endurance Short Term Goal (STG) Improve PF strength so that pt can contract the PF for 8 secs prior to fatigue and be able to relax the PF after contraction. (03/01/22: Pt is able to hold PF contraction 10 secs without fatigue. She is able to relax the PF after contraction partially with palpable relaxation noted) STG Duration 01/27/22 (03/01/22: GOAL MET) Detention Goal (LTG) Decrease prolapse with improved bladder positioning in supine. (03/01/22: Grade 3 Cystocele) (03/17/22: Grade 2 Cystocele in supine & standing) LTG Duration 02/26/22 (03/17/22: MET GOAL) Two Impairment PF pain with palpation Short Term Goal (STG) Pt will be educated in appropriate self stretching of PF (Hip stretch, wand). (01/11/22: HEP: Hip adductors and Piriformis) (01/27/22: HEP: Happy Baby Pose, sup Piriformis stretch, Outer hip/IT band stretch, and Rock Backs, standing hamstring stretch) (03/17/22: Pt has no tenderness of her PF; therefore pt not needing to self stretch with wand) STG Duration 01/14/22 (03/17/22: MET GOAL to pt satifaction) Bookbinder Chief Goal (LTG) Pt has decreased complaints of tenderness of the superficial and deep PF muscles. LTG Duration 02/26/22 (03/01/22: MET GOAL) One Impairment Pt lacks appropriates self care HEP Short Term Goal (STG) Pt will be educated in proper transfers and body mechanics. STG Duration 01/19/22 (01/18/22: MET GOAL) Bookbinder Chief Goal (LTG) Pt will be educated in HEP of PF stretching and strengthening, proper PF care, hip mobility ROM ex's. (01/11/22: HEP: Hip adductors and Piriformis) (01/18/22: HEP: Hamstring/LE neural stretch) (01/27/22: HEP: Happy Baby Pose, sup Piriformis stretch, Outer hip/IT band stretch, and Rock Backs, standing hamstring stretch) (02/15/22: HEP: TA tightening , TA tightening w/haha & light cough) (03/17/22: HEP: GUY sitting on floor hip ER stretch) LTG Duration 03/12/22 (03/17/22: MET GOAL) Assessment Summary Assessment Pt has met all her goals and is able to maintain urinary continence in the presence of a strong urge with use of medications. She no longer has any areas of palpable pain in her pelvic floor. It appears her cytocele has much improved and in standing her bladder does not go beyond vaginal opening. Additionally, her she has not been complaining of back pain. The pt is ready to be placed on a HEP. Physical Therapy Plan Discharge Physical Therapy Discharge Reasons Goals Met Discharge Comments Thank you for your referral.
== END 2022-03-21 14:42 ==
LOC: PHYS 10:30
PROVIDERS: Family Provider Family Medicine; PCP Family Medicine; Referring Provider Obstetrics & Gynecology; Visit Provider Obstetrics & Gynecology
DX: N39.46 Mixed incontinence (principal); N81.10 Cystocele, unspecified
CPT/HCPCS: 97110; 97140; 97162; 97535

== ENCOUNTER → 2023-01-11 08:08 | Outpatient (CLI) | payer OTHER, MEDICAID, SELFPAY | PROVIDERS: Family Provider Family Medicine; PCP Family Medicine; Visit Provider Urology | DX: R31.29 Other microscopic hematuria (principal); Z87.440 Personal history of urinary (tract) infections; R31.21 Asymptomatic microscopic hematuria; F17.200 Nicotine dependence, unspecified, uncomplicated; N95.2 Postmenopausal atrophic vaginitis; N81.10 Cystocele, unspecified | CPT/HCPCS: 81002; 87077; 87086; 87186; 99213 ==

== ENCOUNTER → 2023-01-24 15:04 | Outpatient (CLI) | payer OTHER, MEDICAID, SELFPAY ==
[2023-01-24 17:51] LABS: Add Manual Diff / Slide Review NO; Basophils Absolute Auto 100 /uL (0-100); Basophils Percent Auto 0.8 % (0-2); Eosinophils Absolute Auto 200 /uL (0-450); Eosinophils Percent Auto 2.2 % (2-4); Hemoglobin 14.6 g/dL (12.0-16.0); Lymphocytes Absolute Auto 3400 /uL (1100-4500); Lymphocytes Percent Auto 32.4 % (25-40); Mean Corpuscular HGB Conc 33.9 % (30-36); Mean Corpuscular Hemoglobin 30.3 PG (26-34); Mean Corpuscular Volume 89.4 fL (80-100); Monocytes Absolute Auto 900 /uL (0-900); Neutrophils Absolute Auto 5800 /uL (1500-7000); Neutrophils Percent Auto 55.6 % (50-75); Platelet Count 306 X10^3/uL (150-400); Red Blood Cell Count 4.81 X10^6/uL (4.0-5.2); White Blood Cell Count 10.4 X10^3/uL (4.5-11.0)
[2023-01-24 18:10] LABS: Alanine Aminotransferase 13 IU/L (<35); Albumin 4.4 g/dL (3.5-5.0); Albumin Globulin Ratio 1.5 (1.0-2.8); Alkaline Phosphatase 56 U/L (38-126); Aspartate Aminotransferase 24 IU/L (14-36); BUN Creatinine Ratio 20.9 (6-22); Bilirubin Total 0.9 mg/dL (0.2-1.3); Blood Urea Nitrogen 14 mg/dL (7-17); Calcium 9.3 mg/dL (8.4-10.2); Carbon Dioxide 28 mmol/L (22-32); Chloride 102 mmol/L (98-107); Cholesterol 220 mg/dL (140-199); Estimated Glomerular Filt Rate > 60 mL/min (>60); Globulin 2.9 g/dL (1.7-4.1); Glucose 81 mg/dL (70-100); HDL Cholesterol 56 mg/dL (40-60); HEMOLYSIS < 15 (0-50); LDL Cholesterol Calculated 138 mg/dL (<100); Lipase 148 U/L (23-300); Sodium 137 mmol/L (137-145); Total Protein 7.3 g/dL (6.3-8.2); Triglycerides 129 mg/dL (35-150)
== END ==
PROVIDERS: Family Provider Family Medicine; PCP Family Medicine; Referring Provider Family Medicine; Visit Provider Family Medicine
DX: R10.13 Epigastric pain (principal); K43.9 Ventral hernia without obstruction or gangrene
CPT/HCPCS: 36415; 80053; 80061; 83690; 85025

== ENCOUNTER → 2023-08-08 16:40 | Outpatient (CLI) | payer OTHER, SELFPAY ==
--- NOTE | 2023-08-08 16:42 | DI.US.S_ITS ---
PROCEDURE: US ABDOMEN LIMITED INDICATIONS: POST-PRANDIAL RIGHT UPPER QUADRANT PAIN - HERNIA TECHNIQUE: Real-time scanning was performed of the abdominal, with image documentation. COMPARISON: [facility], CT, CT ABDOMEN PELVIS WO/W CON, 01/06/2022, 14:18. [facility], US, US ABDOMEN LIMITED, 07/04/2019, 22:33. FINDINGS: Liver: Measures 15.1 cm in length. Multiple small hepatic cysts. A larger cyst in the right lobe of the liver measuring 1.7 cm. Questionable nodular contour of the liver surface. Gallbladder: Nondilated. No stones or sludge. Normal gallbladder wall thickness. No pericholecystic fluid. Negative sonographic Nicholas's sign. Biliary ducts: Intrahepatic bile ducts are non-dilated. Extrahepatic bile duct caliber measures 4 mm. Normal is 6-7 mm or less in diameter, or 10 mm or less post-cholecystectomy. Pancreas: Visualized portions of the pancreas are sonographically normal. Miscellaneous: Fat containing umbilical hernia. The hernia neck measures 0.8 cm. IMPRESSION: 1. No acute cholecystitis. No gallstones. 2. Small fat containing umbilical hernia. Dictated by: Paco Szymanski M.D. on 08/09/2023 at 9:50 Approved by: Paco Szymanski M.D. on 08/09/2023 at 9:54
== END ==
PROVIDERS: Family Provider Family Medicine; PCP Family Medicine; Referring Provider Family Medicine; Visit Provider Family Medicine
DX: K42.9 Umbilical hernia without obstruction or gangrene (principal); R10.13 Epigastric pain; K43.9 Ventral hernia without obstruction or gangrene
CPT/HCPCS: 76705

== ENCOUNTER → 2023-11-29 09:24 | Outpatient (CLI) | payer OTHER, SELFPAY ==
[2023-11-29 09:53] LABS: Add Manual Diff / Slide Review NO; Basophils Absolute Auto 0 /uL (0-100); Basophils Percent Auto 0.7 % (0-2); Eosinophils Absolute Auto 200 /uL (0-450); Eosinophils Percent Auto 2.5 % (2-4); Hematocrit 41.1 % (36-46); Lymphocytes Absolute Auto 2000 /uL (1100-4500); Lymphocytes Percent Auto 26.2 % (25-40); Mean Corpuscular HGB Conc 34.1 % (30-36); Mean Corpuscular Hemoglobin 30.8 PG (26-34); Mean Corpuscular Volume 90.5 fL (80-100); Monocytes Absolute Auto 700 /uL (0-900); Monocytes Percent Auto 8.7 % (3-14); Neutrophils Absolute Auto 4600 /uL (1500-7000); Neutrophils Percent Auto 61.9 % (50-75); Platelet Count 316 X10^3/uL (150-400); Red Blood Cell Count 4.55 X10^6/uL (4.0-5.2); Red Cell Distribution Width 13.2 % (11.6-14.8); White Blood Cell Count 7.5 X10^3/uL (4.5-11.0)
[2023-11-29 10:16] LABS: Alanine Aminotransferase 11 IU/L (<35); Albumin Globulin Ratio 1.3 (1.0-2.8); Alkaline Phosphatase 53 U/L (38-126); Aspartate Aminotransferase 23 IU/L (14-36); Bilirubin Total 1.1 mg/dL (0.2-1.3); Blood Urea Nitrogen 18 mg/dL (7-17); Calcium 9.3 mg/dL (8.4-10.2); Carbon Dioxide 27 mmol/L (22-32); Chloride 107 mmol/L (98-107); Cholesterol 210 mg/dL (140-199); Estimated Glomerular Filt Rate > 60 mL/min (>60); Globulin 3.1 g/dL (1.7-4.1); Glucose 89 mg/dL (70-100); HDL Cholesterol 63 mg/dL (40-60); HEMOLYSIS < 15 (0-50); LDL Cholesterol Calculated 132 mg/dL (<100); Potassium 4.6 mmol/L (3.4-5.1); Sodium 139 mmol/L (137-145); Total Protein 7.1 g/dL (6.3-8.2); Triglycerides 75 mg/dL (35-150)
[2023-11-29 10:42] LABS: TSH w/ Reflex to FT4 2.07 uIU/mL (0.47-4.68)
[2023-11-29 11:05] LABS: Vitamin B12 350 pg/mL (239-931)
== END ==
LOC: LAB 09:25
PROVIDERS: Family Provider Family Medicine; PCP Family Medicine; Referring Provider Physician Assistant; Visit Provider Physician Assistant
DX: K57.30 Diverticulosis of large intestine without perforation or abscess without bleeding (principal); E78.5 Hyperlipidemia, unspecified; J44.9 Chronic obstructive pulmonary disease, unspecified; R53.83 Other fatigue; E03.9 Hypothyroidism, unspecified
CPT/HCPCS: 36415; 80053; 80061; 82607; 84443; 85025

== ENCOUNTER 2024-01-24 08:29 | Day surgery (SDC) | payer OTHER, SELFPAY ==
[2024-01-16 14:37] VITALS: BMI 27.8
--- NOTE | 2024-01-23 10:20 | PM.HP.1 ---
History of Present Illness History of Present Illness Chief complaint: Bilateral Laparoscopic Inguinal Hernia Repair/Adam Narrative: 58-year-old woman here for elective laparoscopic bilateral inguinal hernia and open umbilical hernia repair. Last seen August 2023 and in the interval she has successfully quit tobacco usage is now 90 days tobacco free. [facility]LY [facility] Medical History Tobacco dependence due to cigarettes Current smoker (07/22/16) Hyperlipidemia Asymptomatic microscopic hematuria History of urinary tract infection Thyroid disease History of COVID-19 Bronchitis Sinusitis Chest pain Acute epigastric pain Normal cardiac stress test (~07/01/19) COPD (chronic obstructive pulmonary disease) case management patient Bronchitis Anxiety Chest pain Inguinal hernia Anxiety History of irregular menstrual cycles (~2013) Cystocele with uterine descensus (02/06/15) Polyp of cervix (02/06/15) Atypical chest pain Surgical History Status post tubal ligation (12/24/03) Family History Mother Cancer Hypertension Sister Age: 57 Breast cancer Hypertension Daughter Seizure disorder Social History marital status: details: lives with 2 adult daughters household members: children occupational status: employed Smoking Status: Former smoker alcohol intake: former substance use type: does not use Meds Home Medications and Allergies Home Medications Medication Instructions Recorded Confirmed Type fluticasone propionate 50 2 spray intranasal DAILY PRN 11/02/20 01/24/24 History mcg/actuation nasal pneumonia spray,suspension (Flonase Allergy Relief) oxybutynin chloride 10 mg 10 mg PO DAILY #30 tabs 10/27/21 01/24/24 Rx tablet,extended release 24 hr albuterol sulfate 90 mcg/actuation 2 puff inhalation Q4-6H PRN 11/16/21 01/24/24 Rx aerosol inhaler bronchospasm #8.5 grams fluticasone propionate 110 1 puff inhalation .prn 12/23/21 12/27/23 History mcg/actuation HFA aerosol inhaler (Flovent HFA) sertraline 25 mg tablet See Rx Instructions .Route 04/06/23 01/24/24 Rx .COMPLEX #90 tabs omeprazole 20 mg capsule,delayed 20 mg PO DAILY #90 caps 11/20/23 01/24/24 Rx release levothyroxine 175 mcg tablet 175 mcg PO DAILY #90 tabs 12/27/23 01/24/24 Rx varenicline 0.5 mg tablet 0.5 mg PO DAILY #30 tabs 12/27/23 01/24/24 Rx Allergies Allergy/AdvReac Type Severity Reaction Status Date / Time No Known Drug Allergies Allergy Verified 01/24/24 08:56 Exam Narrative Exam Narrative: General adult woman alert oriented no acute distress Chest nonlabored respiration Extremities warm well perfused Assessment & Plan Assessment and plan (1) Umbilical hernia: Qualifiers: Obstruction and gangrene presence: without obstruction or gangrene Qualified Code(s): K42.9 - Umbilical hernia without obstruction or gangrene Status: Acute (2) Bilateral inguinal hernia without obstruction or gangrene: Qualifiers: Recurrence: not specified as recurrent Qualified Code(s): K40.20 - Bilateral inguinal hernia, without obstruction or gangrene, not specified as recurrent Status: Acute Assessment & Plan narrative: 58-year-old woman history of tobacco use here for elective laparoscopic bilateral inguinal and open umbilical hernia repair. She has successfully quit tobacco is now 60 days smoke free which is excellent. An overview of the operation was again reviewed including the surgical risks (hemorrhage, infection, chronic pain, reoccurence, bladder and intestinal injury, and rare but serious risks such as myocardial infarction, stroke and ) benefits and alternative. Following discussion she provides her consent to proceed.
[2024-01-24] VITALS (10 sets, daily range): BP systolic 111–141; BP diastolic 72–95; PULSE 54–75; RESP 12–20; TEMP 36.1–36.2; O2SAT 95–98; BMI 27.9
[2024-01-24] MEDS: LACTATED RINGERS 1,000 ML 42 ML IV ×2 (09:16→11:28)
[2024-01-24] MEDS: SODIUM CHLORIDE 0.9% FLUSH 10 ML IV (09:16)
[2024-01-24] MEDS: CEFAZOLIN 2 GM/100 ML PREMIX 100 ML IV (10:20)
--- NOTE | 2024-01-24 10:23 | P.OP_ITS ---
Operative Date/Time/Diagnoses Date of procedure: 01/24/24 Time of procedure: 10:23 Pre-op diagnosis: Bilateral inguinal and umbilical hernias Post-op diagnosis: same Procedure & Clinicians Procedure: Laparoscopic bilateral inguinal and open umbilical hernia repair Same procedure as scheduled: Yes Indications: Symptomatic reducible bilateral inguinal hernia and umbilical hernia Surgeon: Willis Matos Duralumin Metalworker: Rodo Baxter Anesthesia Type: General Operative Notes Findings: bilateral fat containing indirect defects 2 cm umbilical hernia fat containing Specimen(s): none sent Estimated Blood Loss (mL): 20 Procedure in detail: The patient was brought to the operating room and placed supine on the table. Bilateral sequential compression devices were applied. General anesthesia was induced and they were intubated with an endotracheal tube. A barker cath was placed in sterile fashion. They received 2 g ancef prior to skin incision. They were prepped and draped in sterile fashion. A time out was performed to ensure the correct patient, procedure and necessary equipment within the operating room. The skin was infiltrated with 0.25% bupivicaine. A 1 cm infra umbilical midline incision was made. The abdomen was entered directly through the umbilical hernia defect.. A 10mm balloon port was placed and pneumoperitoneum was established at 15mm Hg. Inspection of the abdomen demonstrated no evidence of injury upon entry. Two 5 mm ports were then placed under direct visualization in the right and left lower quadrant lateral to the rectus muscle. A right and left indirect hernias were observed. Starting on the left side the peritoneum 4 cm superior to the deep inguinal ring between the medial umbilical ligament and the anterior superior iliac spine was incised. The medial preperitoneal dissection was carried out into the space of Retzius bluntly, the bladder was swept inferiorly, the pubis and Chaz's ligament were identified. Next attention was turned towards the lateral aspect of the peritoneal flap. The preperitoneal fat was carefully dissected off the inferior peritoneal flap. The indirect hernia was fat containing and entirely reduced. There was no direct defect. A large Bard 3D Max mesh was then placed into the abdomen and positioned such that the myopectineal orifice was completely covered with good overlap on all sides. The peritoneal flap was then repositioned back to its original position and a running V lock suture was used to close the peritoneum such that no bowel could herniate into the preperitoneal space. The area was examined for hemostasis. Next the right side was addressed. The medial preperitoneal dissection was carried out into the space of Retzius bluntly, the bladder was swept inferiorly, the pubis and Chaz's ligament were identified. Next attention was turned towards the lateral aspect of the peritoneal flap. The preperitoneal fat was carefully dissected off the inferior peritoneal flap. The indirect hernia was fat containing and entirely reduced. There was no direct defect. A large Bard 3D Max mesh was then placed into the abdomen and positioned such that the myopectineal orifice was completely covered with good overlap on all sides. The peritoneal flap was then repositioned back to its original position and a running V lock suture was used to close the peritoneum such that no bowel could herniate into the preperitoneal space. The area was examined for hemostasis. The 5mm trocars were removed under direct visualization and pneumoperitoneum was deflated through the umbilical trocar. The fascial defect at the umbilicus was exposed and was 2 cm in maximal diameter. The preperitoneal tissue was cleared from beneath the fascia such that the mesh would lay flat. The 4.3 cm circular Bard Ventralex mesh was then inserted posterior to the fascia and secured with ethibond suture. The subcutaneous tissue was then closed over the mesh. The fascia at the umbilicus was closed with 0-Vicryl in figure of 8 fashion, skin closed with 4-0 Monocyl followed by Dermabond. The sponge and instrument count at the end of the case was correct. The patient emerged from anesthsia was extubated and transferred to recovery in stable condition. Complications: none Post-operative Condition: stable Disposition: same day surgery
[2024-01-24] MEDS: ACETAMINOPHEN IV 1,000 MG/100 ML VIAL 400 MG IV (10:45)
--- NOTE | 2024-01-24 10:48 | SUR.OPER ---
Supine on padded OR bed, head on pillow, arms padded and tucked at sides, legs uncrossed, safety belt at thigh, tape over blanket over lower legs .
[2024-01-24] MEDS: BUPIVACAINE 0.25% (PF) VIAL 30 ML INJ (10:55)
[2024-01-24] MEDS: OXYCODONE IR 5 MG TABLET PO (12:40)
[2024-01-24] MEDS: KETOROLAC 30 MG/ML VIAL IV (12:51)
== END 2024-01-24 13:44 | disposition home or self-care (01) ==
PROVIDERS: Family Provider Family Medicine; PCP Family Medicine; Referring Provider Surgery; Visit Provider Surgery
PROC: 0YQ64ZZ Repair Left Inguinal Region, Percutaneous Endoscopic Approach (ICD-10-PCS; CPT 49650; principal; 2024-01-24 10:15)
PROC: (CPT 49650; 2024-01-24 10:15)
DX: K42.9 Umbilical hernia without obstruction or gangrene (principal); K40.20 Bilateral inguinal hernia, without obstruction or gangrene, not specified as recurrent
CPT/HCPCS: 49650; C1781; J0136; J0690; J1100; J1170; J1885; J2405; J2704

== ENCOUNTER 2024-08-06 18:27 | Emergency (ER) | payer BC, SELFPAY ==
[2024-08-06] VITALS (7 sets, daily range): BP systolic 143–161; BP diastolic 82–94; PULSE 64–78; RESP 10–21; TEMP 36.1; O2SAT 95–99; BMI 30.9
--- NOTE | 2024-08-06 18:35 | DI.RAD.S_ITS ---
PROCEDURE: XR CHEST 1V INDICATIONS: chest pain TECHNIQUE: One view of the chest was acquired. COMPARISON: [facility], CR, XR CHEST 1V, 07/04/2019, 21:50. [facility], CR, XR CHEST 1V, 04/07/2019, 3:08. FINDINGS: Surgical changes and devices: None. Lungs and pleura: Lungs are clear. No pleural effusions or pneumothorax. Mediastinum: Mediastinal contours appear normal. Heart size is normal. Bones and chest wall: No suspicious bony lesions. Overlying soft tissues appear unremarkable. IMPRESSION: No acute cardiopulmonary abnormality is seen. Dictated by: Paco Maynard M.D. on 08/06/2024 at 18:50 Approved by: Paco Maynard M.D. on 08/06/2024 at 18:52
--- NOTE | 2024-08-06 18:36 | EKG_ITS ---
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
[2024-08-06 18:59] LABS: Add Manual Diff / Slide Review NO; Basophils Absolute Auto 100 /uL (0-100); Basophils Percent Auto 1.3 % (0-2); Eosinophils Absolute Auto 200 /uL (0-450); Eosinophils Percent Auto 2.2 % (2-4); Hematocrit 40.9 % (36-46); Hemoglobin 13.9 g/dL (12.0-16.0); Lymphocytes Absolute Auto 3200 /uL (1100-4500); Lymphocytes Percent Auto 32.9 % (25-40); Mean Corpuscular HGB Conc 33.9 % (30-36); Mean Corpuscular Volume 88.3 fL (80-100); Monocytes Absolute Auto 900 /uL (0-900); Monocytes Percent Auto 9.3 % (3-14); Neutrophils Absolute Auto 5400 /uL (1500-7000); Neutrophils Percent Auto 54.3 % (50-75); Platelet Count 331 X10^3/uL (150-400); Red Blood Cell Count 4.63 X10^6/uL (4.0-5.2); Red Cell Distribution Width 13.4 % (11.6-14.8); White Blood Cell Count 9.9 X10^3/uL (4.5-11.0)
[2024-08-06 19:08] LABS: INR 0.9 (0.9-1.3); Prothrombin Time 10.7 SECONDS (9.4-12.5)
[2024-08-06 19:11] LABS: PTT Partial Thromboplastin Tim 35 SECONDS (25.1-36.5)
[2024-08-06 19:13] LABS: Alanine Aminotransferase 15 IU/L (<35); Albumin 4.3 g/dL (3.5-5.0); Albumin Globulin Ratio 1.2 (1.0-2.8); Alkaline Phosphatase 66 U/L (38-126); Aspartate Aminotransferase 32 IU/L (14-36); BUN Creatinine Ratio 22.9 (6-22); Blood Urea Nitrogen 16 mg/dL (7-17); Calcium 9.3 mg/dL (8.4-10.2); Carbon Dioxide 24 mmol/L (22-32); Chloride 106 mmol/L (98-107); Creatine Kinase 102 U/L (30-135); Estimated Glomerular Filt Rate > 60 mL/min (>60); Globulin 3.5 g/dL (1.7-4.1); Glucose 105 mg/dL (70-100); HEMOLYSIS < 15 (0-50); Lipase 114 U/L (23-300); Magnesium 1.9 mg/dL (1.6-2.3); Potassium 3.8 mmol/L (3.4-5.1); Sodium 137 mmol/L (137-145); Total Protein 7.8 g/dL (6.3-8.2)
[2024-08-06 19:24] LABS: NT-proBNP (BNP-Adult 18+) 186 pg/mL (<125); Troponin I < 0.012 ng/mL (0.01-0.034)
--- NOTE | 2024-08-06 20:50 | EKG_ITS ---
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
[2024-08-06 21:32] LABS: Troponin I < 0.012 ng/mL (0.01-0.034)
--- NOTE | 2024-08-06 22:09 | ED_ITS ---
HPI - Chest Pain General Chief Complaint: Chest Pain Stated Complaint: sent by [facility], left side px, nausea/ ro cardia issue Time Seen by Provider: 08/06/24 21:55 Source: patient Mode of arrival: Ambulatory Limitations: no limitations History of Present Illness HPI narrative: 58-year-old female with no known coronary artery disease, stopped smoking recent months after 40 pack years, had ventral hernia repairs December 2023 here that went well, now with a few days' duration of left lateral chest wall area discomfort, no injury or trauma, but she does frequent lifting of items at her job. No fevers or chills or cough. No sensation of shortness of breath, in fact she feels much less short of breath since stopping her smoking. She denies cardiac risk factors of diabetes, high blood pressure, hyperlipidemia, family history, and has stopped smoking as above. No cardiac stress testing. No history of blood clots to legs or lungs, no leg pain or swelling symptoms. No skin rash or itching sensation skin. Symptoms worse with isolated truncal movements and left upper extremity movements. Sometimes worse with deep breathing. Related Data Home Medications Medication Instructions Recorded Confirmed fluticasone propionate 50 2 spray intranasal DAILY PRN 11/02/20 02/08/24 mcg/actuation nasal pneumonia spray,suspension (Flonase Allergy Relief) fluticasone propionate 110 1 puff inhalation .prn 12/23/21 02/08/24 mcg/actuation HFA aerosol inhaler (Flovent HFA) Previous Rx's Medication Instructions Recorded oxybutynin chloride 10 mg 10 mg PO DAILY #30 tabs 10/27/21 tablet,extended release 24 hr albuterol sulfate 90 mcg/actuation 2 puff inhalation Q4-6H PRN 11/16/21 aerosol inhaler bronchospasm #8.5 grams levothyroxine 175 mcg tablet 175 mcg PO DAILY #90 tabs 12/27/23 acetaminophen 325 mg capsule 650 mg (2 x 325 mg) PO QID PRN 01/24/24 (Tylenol) pain #60 caps docusate sodium 100 mg capsule 100 mg PO BID #30 caps 01/24/24 (Colace) sertraline 25 mg tablet See Rx Instructions .Route 05/02/24 .COMPLEX #90 tabs Allergies Allergy/AdvReac Type Severity Reaction Status Date / Time No Known Drug Allergies Allergy Verified 08/06/24 18:31 Review of Systems Review of Systems Narrative: see HPI Patient History Medical History Tobacco dependence due to cigarettes Current smoker (07/22/16) Hyperlipidemia Asymptomatic microscopic hematuria History of urinary tract infection Thyroid disease History of COVID-19 Bronchitis Sinusitis Chest pain Acute epigastric pain Normal cardiac stress test (~07/01/19) COPD (chronic obstructive pulmonary disease) case management patient Bronchitis Anxiety Chest pain Inguinal hernia Anxiety History of irregular menstrual cycles (~2013) Cystocele with uterine descensus (02/06/15) Polyp of cervix (02/06/15) Atypical chest pain Surgical History Status post tubal ligation (12/24/03) Family History Mother Cancer Hypertension Sister Age: 57 Breast cancer Hypertension Daughter Seizure disorder Social History marital status: details: lives with 2 adult daughters household members: children occupational status: employed Smoking Status: Former smoker alcohol intake: former substance use type: does not use Smoking Status: Former smoker alcohol intake frequency: 0-2 drinks per day Exam Narrative Exam Narrative: GENERAL: Well-developed patient, in mild distress. HEAD: Atraumatic. Normocephalic. EYES: Pupils equal round and reactive. Extraocular motions intact. No scleral icterus. No injection or drainage. ENT: Nose without bleeding, purulent drainage. Throat without erythema, tonsillar hypertrophy or exudate. Airway patent. NECK: Trachea midline. Non tender CARDIOVASCULAR: Regular rate and rhythm without murmurs, gallops, or rubs. RESPIRATORY: Clear to auscultation. Breath sounds equal bilaterally. No wheezes, rales, or rhonchi. No tenderness to chest wall, no skin changes or vesicles obvious. GASTROINTESTINAL: Abdomen soft, non-tender, nondistended. Well-healed small scars from hernia repairs, no redness. EXTREMITIES: No edema or joint tenderness. BACK: Nontender without deformity or crepitance. No flank tenderness. NEURO: AOx3. Motor functions grossly nonfocal SKIN: No rash or erythema of visible areas Initial Vital Signs Initial Vital Signs: Vital Signs Temperature 97.0 F L 08/06/24 18:32 Pulse Rate 78 08/06/24 18:32 Respiratory Rate 14 08/06/24 18:32 Blood Pressure 151/89 H 08/06/24 18:32 Pulse Oximetry 99 08/06/24 18:32 Oxygen Delivery Method Room Air 08/06/24 18:32 Course Orders Ordered: ED Orders 08/06/24 21:02 Troponin I Stat Discontinued Medications Aspirin (Aspirin 81 Mg Chew Tab) 324 mg PO NOW ONE Stop: 08/06/24 18:36 Last Admin: 08/06/24 23:05 Dose: Not Given Documented By: CHAN Vital Signs Vital signs: Vital Signs - 8 hr 08/06/24 22:00 08/06/24 22:00 08/06/24 22:30 Pulse Rate 68 Respiratory Rate 18 Blood Pressure 150/94 H 161/89 H Pulse Oximetry 96 08/06/24 22:30 Pulse Rate 70 Respiratory Rate 19 Blood Pressure Pulse Oximetry 95 MDM - Chest Pain Lab Data Attestation: I reviewed the patient's lab results. Lab results narrative: White blood cell count 9900, hemoglobin 13.9, platelets adequate. Basic metabolic panel unremarkable. BNP not elevated. Troponin negative/nonmeasurable x2 studies. 08/06/24 18:50 08/06/24 18:50 Labs: Lab Results 08/06/24 08/06/24 Range/Units 18:50 21:02 WBC 9.9 (4.5-11.0) X10^3/uL RBC 4.63 (4.0-5.2) X10^6/uL Hgb 13.9 (12.0-16.0) g/dL Hct 40.9 (36-46) % MCV 88.3 (80-100) fL MCH 30.0 (26-34) PG MCHC 33.9 (30-36) % RDW 13.4 (11.6-14.8) % Plt Count 331 (150-400) X10^3/uL Neut % (Auto) 54.3 (50-75) % Lymph % (Auto) 32.9 (25-40) % Norman % (Auto) 9.3 (3-14) % Eos % (Auto) 2.2 (2-4) % Baso % (Auto) 1.3 (0-2) % Neut # (Auto) 5400 (4031-3599) /uL Lymph # (Auto) 3200 (8934-2895) /uL Norman # (Auto) 900 (0-900) /uL Eos # (Auto) 200 (0-450) /uL Baso # (Auto) 100 (0-100) /uL PT 10.7 (9.4-12.5) SECONDS INR 0.9 (0.9-1.3) APTT 35 (25.1-36.5) SECONDS Sodium 137 (137-145) mmol/L Potassium 3.8 (3.4-5.1) mmol/L Chloride 106 (98-107) mmol/L Carbon Dioxide 24 (22-32) mmol/L BUN 16 (7-17) mg/dL Creatinine 0.70 (0.52-1.04) mg/dL Estimated GFR > 60 (>60) mL/min BUN/Creatinine Ratio 22.9 H (6-22) Glucose 105 H (70-100) mg/dL Calcium 9.3 (8.4-10.2) mg/dL Magnesium 1.9 (1.6-2.3) mg/dL Total Bilirubin 1.0 (0.2-1.3) mg/dL AST 32 (14-36) IU/L ALT 15 (<35) IU/L Alkaline Phosphatase 66 (38-126) U/L Total Creatine Kinase 102 (30-135) U/L Troponin I < 0.012 < 0.012 (0.01-0.034) ng/mL NT-Pro-B Natriuret Pep 186 H (<125) pg/mL Total Protein 7.8 (6.3-8.2) g/dL Albumin 4.3 (3.5-5.0) g/dL Globulin 3.5 (1.7-4.1) g/dL Albumin/Globulin Ratio 1.2 (1.0-2.8) Lipase 114 (23-300) U/L Imaging Data Chest x-ray: Radiologist's Impression: [address] [address] XRay Report Signed Patient: Sanam Bryan MR#: [id number] : 1965 Acct:[id number] Age/Sex: 58 / F Date of Service: 08/06/24 Loc: ED Accession Number: [id number] Procedure: XR chest 1V Ordering Provider: Favian Ramires MD PROCEDURE: XR CHEST 1V INDICATIONS: chest pain TECHNIQUE: One view of the chest was acquired. COMPARISON: [facility], CR, XR CHEST 1V, 07/04/2019, 21:50. [facility], CR, XR CHEST 1V, 04/07/2019, 3:08. FINDINGS: Surgical changes and devices: None. Lungs and pleura: Lungs are clear. No pleural effusions or pneumothorax. Mediastinum: Mediastinal contours appear normal. Heart size is normal. Bones and chest wall: No suspicious bony lesions. Overlying soft tissues appear unremarkable. IMPRESSION: No acute cardiopulmonary abnormality is seen. Dictated by: Paco Maynard M.D. on 08/06/2024 at 18:50 Approved by: Paco Maynard M.D. on 08/06/2024 at 18:52 ECG Data Attestation: I personally reviewed and interpreted this ECG as follows: Interpretation: 1836, normal sinus rhythm with rate 90, no obvious ST segment elevation or depression changes. Isolated T-wave inversion lead 3. LA 138, QRS 74, QTC 459. 2050, normal sinus rhythm with rate of 72, no obvious ST segment elevation or depression changes. 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 LA 178, QRS 74, QTC 424. MDM Narrative Medical decision making narrative: 58-year-old female with left-sided chest discomfort, worse with movements of arm in trunk, frequent lifting. Seems more musculoskeletal in nature. EKG without obvious ischemic changes. Serial troponins negative and in fact unmeasurable. Other screening tests also negative. Chest x-ray negative. Consider ibuprofen as needed for discomfort. Consider aspirin daily. We did not have discussion about CT angiogram looking for less likely blood clot to the lungs, offered, she declines this test for now. Further workup as an outpatient for now. Patient agrees, she would like to go home now with no further workup. Discharge Plan Departure Patient Disposition: Home Clinical Impression: Chest discomfort Instructions: DI for Atypical Chest Pain Activity Restrictions/Additional Instructions: Left-sided lateral chest discomfort unclear cause. Frequent lifting at work. Symptoms somewhat worse with movement of left upper extremity against resistance. Possible musculoskeletal cause. We did do an evaluation including EKG and serial blood tests, not suggestive of heart attack evidence at this time. Chest x-ray negative per radiology report. Other screening labs unremarkable. Consider use of aspirin daily. Consider use of Tylenol and or Motrin as needed for possible chest wall discomfort. We did have a brief discussion about CT angiogram of the chest to look for less likely blood clots to the lungs and other pathology, likely not worth the risks of radiation and contrast exposure, declined this test for now. Further testing such as cardiac stress testing or other evaluation as an outpatient for now. For now consider [id number] pain medications for chest wall discomfort as above. Recheck symptoms with your regular doctor in the next 2-3 days. Return earlier to this/nearest emergency department for any change worsening symptoms or any concerns prior Prescriptions: No Action albuterol sulfate 90 mcg/actuation HFA aerosol inhaler 2 puff INHALATION Q4-6H PRN (Reason: bronchospasm) Qty: 8.5 3RF sertraline 25 mg tablet See Rx Instructions .ROUTE .COMPLEX Qty: 90 3RF Dose Instruction: take one tablet (25 mg) by mouth once daily Rx Instructions: take one tablet (25 mg) by mouth once daily levothyroxine 175 mcg tablet 175 mcg PO DAILY Qty: 90 3RF oxybutynin chloride 10 mg tablet extended release 24hr 10 mg PO DAILY Qty: 30 6RF fluticasone propionate [Flonase Allergy Relief] 50 mcg/actuation spray,suspension 2 spray NASAL DAILY PRN (Reason: pneumonia ) Rx Instructions: administer into each nostril docusate sodium [Colace] 100 mg capsule 100 mg PO BID Qty: 30 0RF acetaminophen [Tylenol] 325 mg capsule 650 mg PO QID PRN (Reason: pain) Qty: 60 0RF Flovent HFA 110 mcg/actuation HFA aerosol inhaler 1 puff inhalation .prn Rx Instructions: Inhale one puff twice daily for 2-3 weeks Referrals: Thee Arreola MD [Primary Care Provider] - Stand Alone Forms: Patient Portal/API/Survey
== END 2024-08-06 23:09 | disposition home or self-care (01) ==
PROVIDERS: Emergency Provider Emergency Medicine; Family Provider Family Medicine; PCP Family Medicine
DX: R07.9 Chest pain, unspecified (principal)
CPT/HCPCS: 36415; 71045; 80053; 82550; 83690; 83735; 83880; 84484; 85025; 85610; 85730; 93005; 93010; 99283; 99284